=== PATIENT | male | born 1960 | race Caucasian/White ===

== ENCOUNTER → 2020-12-04 09:30 | Outpatient (BNVA) | payer SELFPAY | PROVIDERS: Visit Provider Family Medicine | DX: R63.4 Abnormal weight loss (principal); R10.9 Unspecified abdominal pain; R22.1 Localized swelling, mass and lump, neck; Z76.89 Persons encountering health services in other specified circumstances | CPT/HCPCS: 80053; 82378; 84153; 84443; 85025 ==

== ENCOUNTER 2021-03-25 20:11 | Emergency (ER) | payer SELFPAY ==
[2021-03-25 20:18] VITALS: BP 134/76; PULSE 78; RESP 16; TEMP 36.6; O2SAT 98; BMI 19.5
--- NOTE | 2021-03-25 20:25 | ED_ITS ---
HPI - General Adult General: Chief complaint: General Medical Stated complaint: Muscle Spasm Upper body Time Seen by Provider: 03/25/21 20:24 History of Present Illness: Patient has chronic tendinitis and cervical radiculopathy. Patient does not take any routine medications orally. Patient states that he had been first prescribed a lot of oral medications but it caused a lot of problems with his stomach and he is unable to take any oral medications at this time. Patient reports over the last week he has had worsening pain but is unable to get into his primary care provider until early next week. Patient is looking for some injections just to kind to get him through until next week. Patient appears well. Patient appears in mild to no pain. Patient reports pain in his upper extremities and muscle spasms in his legs, neck, and back. Review of Systems Musc: Reports: extremity pain and muscle cramps PFS ED PFSH: Social History (Updated 12/18/20 @ 10:13 by Almas Roman LPN) Smoking and tobacco status: current every day smoker cigarettes Alcohol intake: current Alcohol intake frequency: few times a month Alcohol type: beer Physical Exam Const: COMMON NORMALS: healthy appearing and alert GENERAL APPEARANCE: cooperative NUTRITIONAL APPEARANCE: thin HENMT: COMMON NORMALS: atraumatic HEAD & SCALP: atraumatic Neck/C-Spine: CERVICAL SPINE: Yes cervical ROM normal and Yes Paracervical muscle tenderness Resp: COMMON NORMALS: normal respiratory effort Cardio: COMMON NORMALS: regular rate and regular rhythm RATE: regular rate RHYTHM: regular rhythm GI: COMMON NORMALS: Soft to palpation and non-tender PALPATION: Yes Soft to palpation Extremity: COMMON NORMALS: normal to inspection and full ROM Neuro: COMMON NORMALS: moves all extremities and gait normal SENSORIUM/ORIENTATION: Yes alert Psych: COMMON NORMALS: cooperative Skin: COMMON NORMALS: no rashes or lesions noted GENERAL SKIN EXAM: no rashes or lesions noted Course Vital Signs: Vital signs: Vital Signs Temperature 97.8 F 03/25/21 20:18 Pulse Rate 78 03/25/21 20:18 Respiratory Rate 16 03/25/21 20:18 Blood Pressure 134/76 03/25/21 20:18 Pulse Oximetry 98 03/25/21 20:18 MDM - General Adult Medical Decision Making Patient comes in today with complaints of generalized muscle pain and muscle spasms. Patient reports a history of tendinitis, epicondylitis and carpal tunnel syndrome. Patient also reports some history of neck and back pain. On exam patient has some muscle tenderness in the trapezius muscles bilaterally of his neck. Patient has good range of motion and normal strength in all extremities. Patient does have some point tenderness to his back and extremities. Vital signs are normal. Differential diagnosis includes but not limited to fibromyalgia, cervical radiculopathy, neuropathy, tendinitis, malingering. We will give patient 30 mg of Toradol for pain, 2 mg Ativan for his muscle spasms, and 10 mg Decadron for inflammation. Patient was encouraged to drink plenty of fluids and follow-up with his primary care at the next available appointment. Patient agreed to plan. Differential Diagnosis Fibromyalgia, tendinitis, neuropathy, cervical radiculopathy, malingering Discharge Plan Discharge Patient Disposition: Home Clinical Impression: Muscle spasm Condition: Stable Prescriptions: No Action No Known Home Medications 0RF methylprednisolone acetate [Depo-Medrol] 80 mg/mL suspension 80 mg intra-articular ONCE Qty: 1 0RF lidocaine (PF) 20 mg/mL (2 %) solution 100 mg IM ONCE Qty: 5 0RF Discharge Orders: Discharge ED (Routine); Ordered 03/25/21 Ordered By: Gadiel Myles Activity Restrictions/Additional Instructions: Home and rest. Activity as tolerated. Continue with routine plans for control of muscle pain. Follow-up with primary care at earliest appointment. Coding Level of Care Code ED Master [place] for Ondina Fwd History Problem Focused Exam Problem Focused Medical Decision Making Low Complexity Time Spent (min) 20
[2021-03-25] MEDS: ketorolac 30 mg/mL INJ IM (20:49)
[2021-03-25] MEDS: LORazepam 2 mg/mL INJ 1 mL IM (20:50)
[2021-03-25] MEDS: dexamethasone 10 mg/mL INJ IM (20:58)
== END 2021-03-25 21:12 | disposition home or self-care (01) ==
PROVIDERS: Emergency Provider Nurse Practitioner Family
DX: M62.838 Other muscle spasm (principal); F17.210 Nicotine dependence, cigarettes, uncomplicated
CPT/HCPCS: 96372; 99283; J1100; J1885; J2060

== ENCOUNTER 2021-05-21 16:09 | Emergency (ER) | payer SELFPAY ==
[2021-05-21 16:30] VITALS: BP 159/81; PULSE 71; RESP 14; TEMP 36.8; O2SAT 97; BMI 18.8
--- NOTE | 2021-05-21 16:37 | XR_ITS ---
WS: [id number] Chest with left rib detail, 5 views, 05/21/2021 Clinical Data: fall, pain Comparison: None. Findings: The lungs show no nodules, masses, or effusions. The heart is normal. No pneumonia or pneumothorax is seen. The ribs are intact. No rib fractures seen. No subcutaneous emphysema is present. XR/XR ribs LT mn 3V w CXR1V [id number] Impression: Negative chest with left rib detail.
--- NOTE | 2021-05-21 16:40 | W.ED.EXTPRO ---
HPI - Extremity Problem General: Chief complaint: Extremity Injury, Upper Stated complaint: Fall, poss broken ribs Time Seen by Provider: 05/21/21 16:37 History of Present Illness: Patient said he fell off a ladder from about 3 feet about an hour ago and now has left rib pain. Said he has had broken ribs 4 and is sure that is what he has happened now. He has no shortness of breath. Has a hard time finding a position comfort. Associated symptoms: Deny chest pain, fever(s) or rash Review of Systems Narrative: Patient says he fell off a 2 foot step ladder striking a 2 x 4. This occurred about an hour ago. Const: Denies: fever(s), chills or body aches Eyes: Denies: eye discomfort ENMT: Denies: throat pain Card: Denies: chest pain Resp: Denies: dyspnea GI: Denies: abdominal pain, nausea or vomiting Musc: Reports: other (Rib pain left side middle the rib cage.) Skin/Breast: Denies: rash Neuro: Denies: headache(s) Psych: Denies: depression or suicidal ideation [facility] ED PFSH: Social History Smoking and tobacco status: never smoked Alcohol intake: current Alcohol intake frequency: few times a month Alcohol type: beer Physical Exam Const: COMMON NORMALS: no acute distress, patient oriented x3 and alert HENMT: COMMON NORMALS: normocephalic and external ears normal HEAD & SCALP: normocephalic EXTERNAL EAR: Yes external ears normal Eye: COMMON NORMALS: EOMs intact bilaterally Neck/C-Spine: COMMON NORMALS: no JVD Chest: OTHER: Tenderness to left side of the rib cage. About 4 to 5 inches underneath armpit area. There is no bruising or swelling noted there is no abrasion is breathing normally. Resp: COMMON NORMALS: normal respiratory effort and No use of accessory muscles Cardio: COMMON NORMALS: no JVD GI: INSPECTION: Yes normal to inspection Extremity: COMMON NORMALS: normal to inspection and full ROM Neuro: COMMON NORMALS: patient oriented x3 SENSORIUM/ORIENTATION: Yes alert Psych: COMMON NORMALS: mental status grossly normal Skin: COMMON NORMALS: no rashes or lesions noted GENERAL SKIN EXAM: no rashes or lesions noted Course Vital Signs: Vital signs: Vital Signs Temperature 98.3 F 05/21/21 16:30 Pulse Rate 71 05/21/21 16:30 Respiratory Rate 14 05/21/21 16:30 Blood Pressure 159/81 05/21/21 16:30 Pulse Oximetry 97 05/21/21 16:30 MDM - Extremity (Nontraumatic) Medical Decision Making Rib contusion Discharge Plan Discharge Patient Disposition: Home Clinical Impression: Contusion of rib on left side Condition: Stable Prescriptions: New Celebrex 100 mg capsule 100 mg PO BID Qty: 20 0RF No Action prednisone 20 mg tablet See Rx Instructions PO DAILY Qty: 20 0RF Rx Instructions: Take 3 tabs on Days 1-3, 2 tabs on days 4-6, 1 tab on days 7-9, 1/2 tab on days 10-12. methylprednisolone acetate [Depo-Medrol] 80 mg/mL suspension 80 mg intra-articular ONCE Qty: 1 0RF lidocaine (PF) 20 mg/mL (2 %) solution 100 mg IM ONCE Qty: 5 0RF Discharge Orders: Discharge ED (Routine); Ordered 05/21/21 Ordered By: Chepe Mallory Discharge Diet: Usual diet Discharge Activity: Resume usual activity Patient Instructions: Contusion in Adults (ED) Activity Restrictions/Additional Instructions: Follow-up with medical provider as directed. Take medications as prescribed. Return to the ER or your medical provider if condition worsens. Please read and understand discharge instructions. If any questions ask please. Coding Level of Care Code ED Manufacturing Operations Manager for Ondina Fwsebastian Exam Comprehensive
[2021-05-21] MEDS: CELEcoxib 200 mg Capsule 400 MG PO (17:05)
== END 2021-05-21 17:06 | disposition home or self-care (01) ==
PROVIDERS: Emergency Provider Nurse Practitioner Family
DX: S20.212A Contusion of left front wall of thorax, initial encounter (principal); W11.XXXA Fall on and from ladder, initial encounter
CPT/HCPCS: 71101; 99283

== ENCOUNTER 2021-07-25 01:09 | Emergency (ER) | payer SELFPAY ==
[2021-07-25] VITALS (8 sets, daily range): BP systolic 123–199; BP diastolic 74–115; PULSE 54–78; RESP 14–26; TEMP 36.5; O2SAT 92–98; BMI 18.8
--- NOTE | 2021-07-25 01:15 | XRR_ITS ---
PROCEDURE INFORMATION: Exam: XR Chest Exam date and time: 07/25/2021 1:18 AM Age: 60 years old Clinical indication: Chest pressure and radiating; Patient HX: C/O chest pain radiating into back. ; Additional info: Cp TECHNIQUE: Imaging protocol: XR of the chest. Views: 1 view. COMPARISON: CR XR ribs LT mn 3V w CXR1V [id number] 05/21/2021 4:48 PM FINDINGS: Lungs: There is a background of emphysema and mild pulmonary fibrosis. Pleural spaces: Unremarkable. No pleural effusion. No pneumothorax. Heart/Mediastinum: Unremarkable. No cardiomegaly. Bones/joints: Unremarkable. XR/XR chest 1V portable [id number] IMPRESSION: There are no acute chest findings.
--- NOTE | 2021-07-25 01:15 | ECG_ITS ---
[facility] Test Date: 2021-07-25 Pat Name: Kavitha Dunlap Department: Room: Gender: Male Garageman: : 1960 Requested By: Yen Castillo Order Number: [id number] Kirk MD: Batsheva Cohen M.D. Measurements Intervals [place] Rate: 74 P: 0 MN: 148 QRS: 42 QRSD: 89 T: 47 QT: 381 QTc: 423 Interpretive Statements SINUS RHYTHM LOW QRS VOLTAGE IN EXTREMITY LEADS [QRS DEFLECTION < 0.5 mV IN LIMB LEADS] No previous ECG available for comparison Electronically Signed On 07-25-2021 22:00:21 CDT by Batsheva Cohen M.D. [id number]
--- NOTE | 2021-07-25 01:29 | CTR_ITS ---
PROCEDURE INFORMATION: Exam: CTA Chest With Contrast Exam date and time: 07/25/2021 2:15 AM Age: 60 years old Clinical indication: Abdominal pain; Other: Bi lat flank; Chest pressure; Patient HX: Patient C/O chest pain with bilateral flank pain. Tachycardic and hypertensive on monitor. ; Additional info: Cp/ abd pain TECHNIQUE: Imaging protocol: Computed tomographic angiography of the chest with contrast. 3D rendering (Not supervised by radiologist): MIP and/or 3D reconstructed images were created by the technologist. Radiation optimization: All CT scans at this facility use at least one of these dose optimization techniques: automated exposure control; mA and/or kV adjustment per patient size (includes targeted exams where dose is matched to clinical indication); or iterative reconstruction. Contrast material: VISI 320; Contrast volume: 60 ml; Contrast route: INTRAVENOUS (IV); COMPARISON: CR (CHEST, ) 07/25/2021 1:18 AM RADIATION DOSE METRICS: Total DLP (mGy-cm): 1273.46 FINDINGS: Pulmonary arteries: Normal. No pulmonary emboli. Aorta: Unremarkable. No aortic aneurysm. No aortic dissection. Lungs: Unremarkable. No consolidation. No masses. Pleural spaces: Unremarkable. No pneumothorax. No pleural effusion. Heart: Calcifications are seen within the coronary arteries. Lymph nodes: Unremarkable. No enlarged lymph nodes. Bones/joints: Unremarkable. No acute fracture. Soft tissues: Unremarkable. PROCEDURE INFORMATION: Exam: CT Abdomen And Pelvis With Contrast Exam date and time: 07/25/2021 2:15 AM Age: 60 years old Clinical indication: Abdominal pain; Other: Bi lat flank; Chest pressure; Patient HX: Patient C/O chest pain with bilateral flank pain. Tachycardic and hypertensive on monitor. ; Additional info: Cp/ abd pain TECHNIQUE: Imaging protocol: Computed tomography of the abdomen and pelvis with contrast. Radiation optimization: All CT scans at this facility use at least one of these dose optimization techniques: automated exposure control; mA and/or kV adjustment per patient size (includes targeted exams where dose is matched to clinical indication); or iterative reconstruction. Contrast material: VISI 320; Contrast volume: 60 ml; Contrast route: INTRAVENOUS (IV); COMPARISON: CR (CHEST, ) 07/25/2021 1:18 AM RADIATION DOSE METRICS: Total DLP (mGy-cm): 1273.46 FINDINGS: Liver: Normal. No mass. Gallbladder and bile ducts: Normal. No calcified stones. No ductal dilation. Pancreas: Normal. No ductal dilation. Spleen: Normal. No splenomegaly. Adrenal glands: Normal. No mass. Kidneys and ureters: Normal. No hydronephrosis. Stomach and bowel: Moderate stool fills the colon. There is bowel wall thickening seen within the distal sigmoid colon possibly secondary to nondistention. Appendix: No evidence of appendicitis. Intraperitoneal space: Unremarkable. No free air. No significant fluid collection. Vasculature: Calcifications are present within the abdominal aorta, iliac arteries and femoral arteries bilaterally and in branches of the celiac and superior mesenteric arteries. Lymph nodes: Unremarkable. No enlarged lymph nodes. Urinary bladder: Unremarkable as visualized. Reproductive: There is a small right hydrocele. Bones/joints: Unremarkable. No acute fracture. Soft tissues: Unremarkable. CT/CT angio chest w abd pel w con IMPRESSION: 1. There is no evidence for pulmonary emboli. 2. There is no evidence for aneurysmal dilatation, dissection or extravasation of the thoracic aorta. IMPRESSION: 1. Moderate stool fills the colon. There is some bowel wall thickening seen within the distal sigmoid colon possibly secondary to nondistention. 2. Small right hydrocele
--- NOTE | 2021-07-25 01:33 | ED_ITS ---
HPI - Chest Pain General: Chief Complaint: Chest Pain Stated Complaint: cp, back pian Time Seen by Provider: 07/25/21 01:14 Source: patient and EMS Mode of arrival: EMS Limitations: no limitations History of Present Illness: 60-year-old male states that he woke up at midnight with severe abdominal pain rating up into his chest he states he felt like the pain is sharp in nature he just cannot get comfortable. He rates the pain a 9 out of 10 currently denies any shortness of breath no vomiting or baldemar rrhea no fevers. Denies any history of any pain like this previously. Associated symptoms: Reports abdominal pain; Deny dyspnea or fever(s) Review of Systems Const: Denies: fever(s), chills, body aches or change in appetite Eyes: Denies: blurry vision or eye discomfort ENMT: Denies: throat pain or dental pain Card: Reports: chest pain Resp: Denies: dyspnea GI: Reports: abdominal pain : Denies: dysuria Musc: Denies: neck pain or back pain Skin/Breast: Denies: rash Neuro: Denies: headache(s) Psych: Denies: depression Russ/Lymph: Denies: easy bruising All/Imm: Denies: urticaria PFSH ED PFSH: Medical History (Updated 07/25/21 @ 04:46 by Yen Castillo MD) No pertinent past medical history Social History Smoking and tobacco status: never smoked Alcohol intake: current Alcohol intake frequency: few times a month Alcohol type: beer Physical Exam Const: COMMON NORMALS: patient oriented x3 and healthy appearing HENMT: COMMON NORMALS: normocephalic and atraumatic HEAD & SCALP: normocephalic and atraumatic Eye: COMMON NORMALS: Equal, round and reactive pupils present and EOMs intact bilaterally PUPIL: Yes Equal, round and reactive pupils present Neck/C-Spine: COMMON NORMALS: full ROM and supple Chest: COMMONS NORMALS: normal inspection of the chest and normal palpation of entire chest wall Resp: COMMON NORMALS: normal respiratory effort, No retractions, No use of accessory muscles and clear to auscultation bilaterally AUSCULTATION: clear to auscultation bilaterally Cardio: COMMON NORMALS: regular rate, regular rhythm and No murmurs present (Cardio) RATE: regular rate RHYTHM: regular rhythm GI: COMMON NORMALS: Normal to inspection, nondistended, normoactive bowel sounds present, Soft to palpation, non-tender and no masses PALPATION: Yes Soft to palpation Extremity: COMMON NORMALS: normal to inspection and full ROM Neuro: COMMON NORMALS: patient oriented x3, moves all extremities and no focal motor deficits Psych: COMMON NORMALS: mental status grossly normal, Normal thought process present and cooperative THOUGHT PROCESS: Normal thought process present Skin: COMMON NORMALS: no rashes or lesions noted and no wounds GENERAL SKIN EXAM: no rashes or lesions noted Course Vital Signs: Vital signs: Vital Signs Temperature 97.7 F 07/25/21 01:18 Pulse Rate 77 07/25/21 03:30 Respiratory Rate 18 07/25/21 03:30 Blood Pressure 162/83 07/25/21 03:30 Pulse Oximetry 92 07/25/21 03:30 MDM - Chest Pain Medical Decision Making Patient presents with diffuse abdominal cramping likely from his constipation CT of his abdomen showed no other findings his white count and lactate here are normal. He had some radiation pain into his chest no signs of pulmonary embolism or dissection troponins are normal patient feels much improved after Reglan did give him lactulose will prescribe Reglan for home along with GoLytely he is to follow-up his PCP and return if worsening. Lab Data : 07/25/21 01:32 07/25/21 01:32 Radiology Impressions Chest X-Ray 07/25/21 01:15 IMPRESSION: There are no acute chest findings. Chest/Abdomen/Pelvis CT 07/25/21 01:29 IMPRESSION: 1. There is no evidence for pulmonary emboli. 2. There is no evidence for aneurysmal dilatation, dissection or extravasation of the thoracic aorta. IMPRESSION: 1. Moderate stool fills the colon. There is some bowel wall thickening seen within the distal sigmoid colon possibly secondary to nondistention. 2. Small right hydrocele Laboratory Results WBC 8.6 10^3/uL (4.0-10.0) 07/25/21 01:32 RBC 4.65 10^6/uL (4.1-5.3) 07/25/21 01:32 Hgb 14.0 g/dL (11.7-16.6) 07/25/21 01:32 Hct 41.5 % (42.0-52.0) L 07/25/21 01:32 MCV 89.2 fl (80-94) 07/25/21 01:32 MCH 30.1 pg (28.0-34.0) 07/25/21 01:32 MCHC 33.7 g/dL (30.0-36.0) 07/25/21 01:32 RDW 12.7 % (12.1-15.1) 07/25/21 01:32 Plt Count 367 10^3/cmm (130-400) 07/25/21 01:32 MPV 10.0 fL (7.4-10.4) 07/25/21 01:32 Neut % (Auto) 70.0 % 07/25/21 01:32 Lymph % (Auto) 18.0 % 07/25/21 01:32 [place] % (Auto) 7.7 % 07/25/21 01:32 Eos % (Auto) 3.1 % 07/25/21 01:32 Baso % (Auto) 0.9 % 07/25/21 01:32 Neut # (Auto) 6.01 10^3/uL (1.8-7.7) 07/25/21 01:32 Lymph # (Auto) 1.6 10^3/uL (0.8-4.8) 07/25/21 01:32 [place] # (Auto) 0.7 10^3/uL (0.2-0.9) 07/25/21 01:32 Eos # (Auto) 0.3 10^3/uL (0.0-0.8) 07/25/21 01:32 Baso # (Auto) 0.1 10^3/uL (0.0-0.1) 07/25/21 01:32 Nucleated RBC % (auto) 0 % 07/25/21 01:32 Nucleated RBCs # 0.0 /100WBC 07/25/21 01:32 PT 13.50 SECONDS (12.1-14.9) 07/25/21 01:32 INR 1.00 (0.8-1.2) 07/25/21 01:32 Sodium 137 mmol/L (136-145) 07/25/21 01:32 Potassium 3.9 mmol/L (3.5-5.1) 07/25/21 01:32 Chloride 99 mmol/L (98-107) 07/25/21 01:32 Carbon Dioxide 27 mmol/L (22-29) 07/25/21 01:32 Anion Gap 14.9 (5-19) 07/25/21 01:32 BUN 9 mg/dL (8-23) 07/25/21 01:32 Creatinine 0.7 mg/dL (0.7-1.2) 07/25/21 01:32 GFR Calculation 114.6 mL/min (90-130) 07/25/21 01:32 Glucose 139 mg/dL (65-115) H 07/25/21 01:32 Calculated Osmolality 285 mOsm/kg (285-295) 07/25/21 01:32 Lactate 0.7 mmol/L (0.5-2.2) 07/25/21 02:53 Calcium 9.1 mg/dL (8.5-10.5) 07/25/21 01:32 Total Bilirubin 0.2 mg/dL (0.15-1.2) 07/25/21 01:32 AST 16 U/L (0-40) 07/25/21 01:32 ALT 11 U/L (0-41) 07/25/21 01:32 Alkaline Phosphatase 95 IU/L (40-130) 07/25/21 01:32 Troponin T Baseline 7 ng/L (0-15) 07/25/21 01:32 Troponin T 120 Minute 6.85 ng/L (0-15) 07/25/21 03:57 Delta Troponin T -0.15 ABS# (0-10) L 07/25/21 03:57 Total Protein 6.9 g/dL (6.6-8.7) 07/25/21 01:32 Albumin 4.4 g/dL (3.5-5.2) 07/25/21 01:32 Globulin 2.5 g/dL (1.3-4.6) 07/25/21 01:32 Lipase 29 U/L (13-60) 07/25/21 01:32 Urine Color Yellow (Yellow) 07/25/21 04:21 Urine Appearance Clear (CLEAR) 07/25/21 04:21 Urine pH 7 (5-7) 07/25/21 04:21 Ur Specific [place] 1.005 (1.005-1.030) 07/25/21 04:21 Urine Protein Neg (Negative) 07/25/21 04:21 Urine Glucose (UA) Norm (Normal) 07/25/21 04:21 Urine Ketones Negative (Negative) 07/25/21 04:21 Urine Blood Neg (Negative) 07/25/21 04:21 Urine Nitrate Negative (Negative) 07/25/21 04:21 Urine Bilirubin Neg (Negative) 07/25/21 04:21 Urine Urobilinogen Norm mg/dL (Negative) 07/25/21 04:21 Ur Leukocyte Esterase Negative (Negative) 07/25/21 04:21 EKG Data EKG 1: I personally reviewed and interpreted this EKG as follows: EKG interpretation date: 07/25/21 EKG interpretation time: 01:30 Interpretation: nsr hr [address] or t wave abnormalities qrs 89 qtc 408 EKG 2: I personally reviewed and interpreted this EKG as follows: EKG interpretation date: 07/25/21 EKG interpretation time: 03:09 Interpretation: sinus [place] hr [address] or t wave abnormalities qrs 92 qtc 413 Discharge Plan Discharge Patient Disposition: Home Clinical Impression: Abdominal pain Qualifiers: Abdominal location: generalized Qualified Code(s): R10.84 - Generalized abdominal pain Constipation Qualifiers: Constipation type: unspecified constipation type Qualified Code(s): K59.00 - Constipation, unspecified Condition: Stable Prescriptions: New Reglan 10 mg tablet 10 mg PO Q6H PRN (Reason: nausea and vomiting) Qty: 20 0RF Golytely 236-22.74-6.74 -5.86 gram recon soln 240 ml PO Q10M Qty: 4000 0RF Rx Instructions: until fecal effluent is clear No Action prednisone 20 mg tablet See Rx Instructions PO DAILY Qty: 20 0RF Rx Instructions: Take 3 tabs on Days 1-3, 2 tabs on days 4-6, 1 tab on days 7-9, 1/2 tab on da ys 10-12. methylprednisolone acetate [Depo-Medrol] 80 mg/mL suspension 80 mg intra-articular ONCE Qty: 1 0RF lidocaine (PF) 20 mg/mL (2 %) solution 100 mg IM ONCE Qty: 5 0RF Celebrex 100 mg capsule 100 mg PO BID Qty: 20 0RF Discharge Orders: Discharge ED (Routine); Ordered 07/25/21 Ordered By: Yen Castillo Discharge Diet: Advance as tolerated Discharge Activity: Resume usual activity Patient Instructions: Constipation (ED), Abdominal Pain (ED) Coding Level of Care Code ED Java [employer] Technical Lead for Hildag Fwd Exam Comprehensive
[2021-07-25] MEDS: HYDROmorphone 1 mg/mL INJ 1 mL IVP ×2 (01:37→02:00)
[2021-07-25] MEDS: ondansetron 2 mg/ML SDV 2 mL 4 MG IVP (01:37)
[2021-07-25 01:38] LABS: Basophils # 0.1 10^3/uL (0.0-0.1); Basophils % 0.9 %; Eosinophils # 0.3 10^3/uL (0.0-0.8); Eosinophils % 3.1 %; Hematocrit 41.5 % (42.0-52.0); Lymphocytes # 1.6 10^3/uL (0.8-4.8); Mean Corpuscular HGB Conc 33.7 g/dL (30.0-36.0); Mean Corpuscular Hemoglobin 30.1 pg (28.0-34.0); Mean Corpuscular Volume 89.2 fl (80-94); Monocytes # 0.7 10^3/uL (0.2-0.9); Monocytes % 7.7 %; Neutrophils # 6.01 10^3/uL (1.8-7.7); Nucleated Red Blood Cells % 0 %; Platelet Count 367 10^3/cmm (130-400); Red Blood Count 4.65 10^6/uL (4.1-5.3); Red Cell Distribution Width 12.7 % (12.1-15.1); White Blood Count 8.6 10^3/uL (4.0-10.0)
[2021-07-25 02:10] LABS: Alanine Aminotransferase 11 U/L (0-41); Albumin Level 4.4 g/dL (3.5-5.2); Alkaline Phosphatase 95 IU/L (40-130); Anion Gap 14.9 (5-19); Aspartate Amino Transferase 16 U/L (0-40); Blood Urea Nitrogen 9 mg/dL (8-23); Calcium 9.1 mg/dL (8.5-10.5); Carbon Dioxide 27 mmol/L (22-29); Chloride 99 mmol/L (98-107); Globulin 2.5 g/dL (1.3-4.6); Glomerular Filtration Rate 114.6 mL/min (90-130); Glucose 139 mg/dL (65-115); Lipase 29 U/L (13-60); Osmolality Calculated 285 mOsm/kg (285-295); Potassium 3.9 mmol/L (3.5-5.1); Sodium 137 mmol/L (136-145); Total Bilirubin 0.2 mg/dL (0.15-1.2); Total Protein 6.9 g/dL (6.6-8.7)
[2021-07-25 02:11] LABS: Troponin(5th) Baseline 7 ng/L (0-15)
[2021-07-25] MEDS: iodixanol 320 mg/mL 100mL Btl IV (02:26)
[2021-07-25] MEDS: LORazepam 2 mg/mL INJ 1 mL 1 MG IVP (02:50)
[2021-07-25] MEDS: lactulose oral liq 20 gm/30 mL UDC 30 GM PO (03:00)
--- NOTE | 2021-07-25 03:15 | ECG_ITS ---
[facility] Test Date: 2021-07-25 Pat Name: Kavitha Dunlap Department: Room: Gender: Male Community Service Officer Coordinator: : 1960 Requested By: Yen Castillo Order Number: [id number] Kirk MD: Batsheva Cohen M.D. Measurements Intervals [place] Rate: 59 P: 42 NC: 162 QRS: 66 QRSD: 92 T: 53 QT: 414 QTc: 411 Interpretive Statements SINUS BRADYCARDIA LOW QRS VOLTAGE IN EXTREMITY LEADS [QRS DEFLECTION < 0.5 mV IN LIMB LEADS] Compared to ECG 07/25/2021 01:30:10 Sinus rhythm no longer present Electronically Signed On 07-25-2021 22:14:37 CDT by Batsheva Cohen M.D. [id number]
[2021-07-25 03:20] LABS: Lactate (Lactic Acid level) 0.7 mmol/L (0.5-2.2)
[2021-07-25] MEDS: metoclopramide 5 mg/mL SDV 2 mL IVP (04:21)
[2021-07-25] MEDS: diphenhydrAMINE 50 mg/mL SDV 1mL 25 MG IVP (04:21)
[2021-07-25] MEDS: polyethylene glycol 3350 Pkt 17 gm PO (04:21)
[2021-07-25 04:25] LABS: Add Urine Microscopic? NO; Bilirubin Urine Neg (Negative); Blood Urine Neg (Negative); Charge for UA Resulting for Rev; Glucose Urine UA Norm (Normal); Ketones Urine Negative (Negative); Leukocyte Esterase Urine Negative (Negative); Nitrate Urine Negative (Negative); Protein Urine Neg (Negative); Specific Gravity, Urine 1.005 (1.005-1.030); Urine Appearance Clear (CLEAR); Urine Color Yellow (Yellow); Urobilinogen Urine Norm (Negative); pH Urine 7 (5-7)
[2021-07-25 04:37] LABS: Troponin 5 2HR 6.85 ng/L (0-15)
[2021-07-25 04:44] LABS: Troponin 5 2HR Delta -0.15 ABS# (0-10)
== END 2021-07-25 04:55 | disposition home or self-care (01) ==
PROVIDERS: Emergency Provider Emergency Medicine
DX: K59.00 Constipation, unspecified (principal)
CPT/HCPCS: 71045; 71275; 74177; 80053; 81003; 83605; 83690; 84484; 85025; 85610; 93005; 96374; 96375; 96376; 99285; J1170; J1200; J2060; J2405; J2765; Q9967

== ENCOUNTER → 2021-07-31 13:46 | Outpatient (BNVA) | payer SELFPAY | PROVIDERS: Referring Provider Family Medicine; Visit Provider Orthopaedic Surgery | DX: M54.6 Pain in thoracic spine (principal) | CPT/HCPCS: 72072; 72100 ==

== ENCOUNTER 2022-08-14 16:36 | Emergency (ER) | payer SELFPAY ==
[2022-08-14 16:38] VITALS: BP 199/106; PULSE 81; RESP 16; TEMP 36.8; O2SAT 97
[2022-08-14] MEDS: lidocaine 2% viscous 15 mL UDC 10 ML MUCOUS MEM (17:42)
[2022-08-14] MEDS: HYDROcodone-acetaminophen 5-325 mg Tablet 1 TAB PO (17:42)
--- NOTE | 2022-08-15 00:51 | W.ED.DENTAL ---
HPI - Dental/Oral General: Chief complaint: Dental/Oral Stated complaint: loose molar hitting nerve Time Seen by Provider: 08/14/22 17:16 Source: patient Mode of arrival: ambulatory Limitations: no limitations History of Present Illness: Patient presents emergency department today for evaluation treatment of right lower dental pain. Patient states that earlier this morning he broke one of his molars and since that time has had terrible nerve pain. Patient is pacing in the room [id number] holding his jaw. He is even crying out at some times. Patient states he waited until now to come in as they were trying to find an available dentist today but were unsuccessful. He states the tooth is loose and he has been trying to wiggle it and pull it out since this morning. Review of Systems General: Reports: 10 or more systems reviewed and unremarkable except in HPI and below PFSH ED PFSH: Medical History No pertinent past medical history Social History Smoking and tobacco status: never smoked Alcohol intake: current Alcohol intake frequency: few times a month Alcohol type: beer Substance/Drug Use: current Substance/Drug use frequency: daily Physical Exam Const: COMMON NORMALS: no acute distress, patient oriented x3 and alert HENMT: OTHER: Mucous membranes are moist. Patient has an obviously broken right inferior, posterior molar. Posterior portion of the tooth is broken off at the gumline and there is no significant signs of surrounding erythema or swelling concerning for an active abscess but, would suspect exposure of root and nerve root on exam. Eye: COMMON NORMALS: Equal, round and reactive pupils present, EOMs intact bilaterally and conjunctivae normal CONJUNCTIVA: Yes conjunctivae normal PUPIL: Yes Equal, round and reactive pupils present Neck/C-Spine: COMMON NORMALS: no JVD Lymph: LYMPHATIC: no lymphadenopathy noted Resp: COMMON NORMALS: normal respiratory effort, No retractions and No use of accessory muscles Cardio: COMMON NORMALS: no JVD and regular rate RATE: regular rate : COMMON NORMALS: Yes no CVA tenderness BLADDER/KIDNEY EXAM: Yes no CVA tenderness Back/Pelvis: COMMON NORMALS: no CVA tenderness, thoracic and lumbar spine normal to inspection and thoraco-lumbar ROM normal Extremity: COMMON NORMALS: normal to inspection, full ROM and no pedal edema Neuro: COMMON NORMALS: patient oriented x3 SENSORIUM/ORIENTATION: Yes alert Skin: COMMON NORMALS: no rashes or lesions noted and turgor normal GENERAL SKIN EXAM: no rashes or lesions noted and turgor normal Course Vital Signs: Vital signs: Vital Signs Temperature 98.3 F 08/14/22 16:38 Pulse Rate 81 08/14/22 16:38 Respiratory Rate 16 08/14/22 16:38 Blood Pressure 199/106 08/14/22 16:38 Pulse Oximetry 97 08/14/22 16:38 Oxygen Delivery Me thod Room Air 08/14/22 16:38 MDM - Dental/Oral Medical Decision Making Patient presents today for tooth fracture. Patient appears to be in quite a lot of pain so we did address this today but, also recommended prescription medication at the pharmacy and [id number] options. I encouraged using dental putty to cover over the exposed nerve area. I also provided him a couple different same-day/walk-in dental emergency options for treatment in [place] as I explained that only a dental evaluation and intervention will provide him tentative dental pain relief. Patient was given a prescription for antibiotics to prevent any complications or delay about being seen by a dentist over concerns for infection. Differential Diagnosis Likely gingival abscess, dental caries, toothache, dental abscess and fracture of tooth Discharge Plan Discharge Patient Disposition: Home Clinical Impression: Fracture of tooth Condition: Stable Prescriptions: New Lidocaine Viscous 2 % solution 10 ml mucous membrane TID PRN (Reason: pain) Qty: 100 0RF amoxicillin-pot clavulanate 875-125 mg tablet 1 tab PO BID 7 Days Qty: 14 0RF gabapentin 300 mg capsule See Rx Instructions .ROUTE .COMPLEX Qty: 18 0RF Rx Instructions: take one cap today. Take one cap, twice a day tomorrow. Then take one cap three times a day until gone. No Action prednisone 20 mg tablet See Rx Instructions PO DAILY Qty: 20 0RF Rx Instructions: Take 3 tabs on Days 1-3, 2 tabs on days 4-6, 1 tab on days 7-9, 1/2 tab on days 10-12. methylprednisolone acetate [Depo-Medrol] 80 mg/mL suspension 80 mg intra-articular ONCE Qty: 1 0RF lidocaine (PF) 20 mg/mL (2 %) solution 100 mg IM ONCE Qty: 5 0RF prednisone 20 mg tablet 20 mg PO DAILY Qty: 15 0RF Rx Instructions: 60mg X3 days 40mg X2 days 20mg X 2days cyclobenzaprine 10 mg tablet 10 mg PO TID PRN (Reason: muscle spasm) Qty: 30 0RF Celebrex 100 mg capsule 100 mg PO BID Qty: 20 0RF Reglan 10 mg tablet 10 mg PO Q6H PRN (Reason: nausea and vomiting) Qty: 20 0RF Golytely [id number] -5.86 gram recon soln 240 ml PO Q10M Qty: 4000 0RF Rx Instructions: until fecal effluent is clear Discharge Orders: Discharge ED (Routine); Ordered 08/14/22 Ordered By: Beverly Celaya Discharge Diet: Advance as tolerated Discharge Activity: Resume usual activity Activity Restrictions/Additional Instructions: We have provided you some pain medicine here in the emergency department as well as prescriptions for both prophylactic antibiotic coverage to prevent dental infection and, nerve medication/numbing medication. I still recommend you apply dental putty to cover the area exposed from this recent tooth fracture. You still need to follow-up with a dentist for more definitive care and have provided you a couple of different options for walk-in services in [place]. Coding Level of Care Code ED Paper Spooler for Ondina Lau
--- NOTE | 2022-09-03 14:45 | DCPLANNER ---
late entry - patient called due to no primary care physician - no answer at this time.
== END 2022-08-14 17:48 | disposition home or self-care (01) ==
PROVIDERS: Emergency Provider Physician Assistant
DX: S02.5XXA Fracture of tooth (traumatic), initial encounter for closed fracture (principal); X58.XXXA Exposure to other specified factors, initial encounter
CPT/HCPCS: 99283

== ENCOUNTER 2022-12-04 18:33 | Emergency (ER) | payer SELFPAY ==
[2022-12-04 18:42] VITALS: BP 143/80; PULSE 94; RESP 16; TEMP 36.5; O2SAT 99; BMI 18.8
== END 2022-12-04 20:50 | disposition left against medical advice (07) ==
LOC: ER 18:42
PROVIDERS: Emergency Provider Family Medicine; PCP Clinical Nurse Specialist Adult Health
DX: Z53.21 Procedure and treatment not carried out due to patient leaving prior to being seen by health care provider (principal)
CPT/HCPCS: 99283

== ENCOUNTER 2022-12-04 22:17 | Emergency (ER) | payer SELFPAY ==
[2022-12-04 22:19] VITALS: BP 139/78; PULSE 79; RESP 16; TEMP 36.4; O2SAT 98; BMI 19.3
--- NOTE | 2022-12-04 22:41 | W.ED.BACK ---
HPI - Back Pain/Injury General: Chief Complaint: Back Pain/Injury Stated Complaint: back pain Time Seen by Provider: 12/04/22 22:37 History of Present Illness: 62-year-old male patient comes in today with complaints of low back pain. Patient has a history of intervertebral disc disease affecting L3-L4, and L4-L5 discs. Patient reports that he has tried ice, muscle rub, and naproxen at home with minimal to no relief of his pain. Patient came in tonight due to uncontrolled pain. Patient appears nontoxic. Patient appears in moderate pain. Denies any loss of bowel or bladder control. Patient at this time is awaiting referral to pain specialist and neurology for treatment of his chronic back pain. Review of Systems General: Reports: 10 or more systems reviewed and unremarkable except in HPI and below Musc: Reports: back pain PFS ED PFSH: Medical History (Updated 12/04/22 @ 22:52 by ITZ Arias) Bilateral sciatica Lumbar stenosis with neurogenic claudication Tobacco dependence Surgical History Hx of knee surgery Hx of shoulder surgery Family History Denies family history of Clotting disorder Anesthesia complication Bleeding disorder Social History Smoking and tobacco status: current every day smoker cigarettes Packs smoked per day: 1 [ Other cigarette details: 40 year pack history] Alcohol intake: former Substance/Drug Use: former Date of last use: not currently, many moons before Physical Exam Const: COMMON NORMALS: alert HENMT: COMMON NORMALS: normocephalic HEAD & SCALP: normocephalic Neck/C-Spine: COMMON NORMALS: full ROM Resp: COMMON NORMALS: normal respiratory effort Cardio: COMMON NORMALS: regular rate and regular rhythm RATE: regular rate RHYTHM: regular rhythm GI: COMMON NORMALS: Soft to palpation and non-tender PALPATION: Yes Soft to palpation Back/Pelvis: LUMBAR SPINE/LOWER BACK: Yes paraspinal muscle tenderness Extremity: COMMON NORMALS: normal to inspection and no pedal edema Neuro: SENSORIUM/ORIENTATION: Yes alert Skin: COMMON NORMALS: turgor normal GENERAL SKIN EXAM: turgor normal Course Vital Signs: Vital signs: Vital Signs Temperature 97.5 F L 12/04/22 22:19 Pulse Rate 79 12/04/22 22:19 Respiratory Rate 16 12/04/22 22:19 Blood Pressure 139/78 12/04/22 22:19 Pulse Oximetry 98 12/04/22 22:19 MDM - Back Pain/Injury Medical Decision Making 62-year-old male patient comes in today for complaints of uncontrolled back pain. On exam patient appears nontoxic. Patient appears in no acute distress. Reviewed MRI report that shows a herniated disc in his lower back between L4 and L5 and some bulging disc between L3 and L4. Vital signs are normal. Patient appears nontoxic. Respirations are even lungs are clear to auscultation. No signs of cauda equina syndrome. Differential diagnosis includes intervertebral disc disease, facet arthropathy, chronic back pain, cauda equina syndrome. Reviewed exam with patient with recommendations for treatment and follow-up. Patient reported understanding and agreed to plan. 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 Condition: Stable Prescriptions: New hydrocodone-acetaminophen 5-325 mg tablet 1 tab PO Q8H PRN (Reason: pain) Qty: 7 0RF No Action naproxen sodium [Aleve] 220 mg capsule 220 mg PO BID PRN baclofen 10 mg tablet 10 mg PO BID PRN (Reason: muscle spasms) Qty: 60 0RF hydrocortisone 2.5 % cream with perineal applicator 1 applic MT DAILY PRN (Reason: hemorrhoids) Qty: 30 0RF Discharge Orders: Discharge ED (Routine); Ordered 12/04/22 Ordered By: Gadiel Myles Referrals: Irwin Franklin, SALES REPRESENTATIVE TRAINEE [Primary Care Provider] - Discharge Diet: Usual diet Discharge Activity: Increase activity as tolerated Patient Instructions: Opioid Safety, Pain Management Activity Restrictions/Additional Instructions: Try to maintain normal activity. Drink plenty of water with medications. Gentle stretching and range of motion exercises. Follow-up with primary care for further instructions. Return to ED for new concerns. Coding Level of Care Code ED Child Support Specialist for Ondina Lau
[2022-12-04] MEDS: HYDROcodone-acetaminophen 7.5-325 mg Tablet 1 TAB PO (22:58)
[2022-12-04] MEDS: ketorolac 30 mg/mL INJ IM (22:59)
[2022-12-04 23:30] VITALS: BP 166/64; PULSE 71; RESP 18; O2SAT 99
== END 2022-12-04 23:18 | disposition home or self-care (01) ==
PROVIDERS: Emergency Provider Nurse Practitioner Family; PCP Clinical Nurse Specialist Adult Health
DX: M51.36 Other intervertebral disc degeneration, lumbar region (principal); M25.78 Osteophyte, vertebrae; F17.210 Nicotine dependence, cigarettes, uncomplicated
CPT/HCPCS: 96372; 99284; J1885

== ENCOUNTER 2022-12-29 11:41 | Emergency (ER) | payer SELFPAY ==
[2022-12-29 11:43] VITALS: BP 152/84; PULSE 80; RESP 18; TEMP 36.7; O2SAT 98; BMI 17.9
[2022-12-29 12:49] VITALS: BP 174/95; PULSE 91; RESP 18; O2SAT 99
--- NOTE | 2022-12-29 13:18 | ED_ITS ---
HPI - Back Pain/Injury General: Chief Complaint: Back Pain/Injury Stated Complaint: back pain Time Seen by Provider: 12/29/22 11:57 Source: patient and family Mode of arrival: ambulatory Limitations: no limitations History of Present Illness: Patient is a 62-year-old male who presents to ED today with complaint of chronic back pain. Patient states he was seen primary care as well as pain management in [place] for his back pain but recently moved to the area. Patient was seen by Dr. Feldman on 12/22 for his back pain. Patient states he has been taking multiple medications including muscle relaxers, pain medications, and anti- inflammatories for his pain. Patient states I am not a good medication taker and feels like all of the medications have messed with my stomach . He states it is hard to eat or drink anything secondary to abdominal/stomach discomforts. He is not having any bloody emesis or black or tarry stools. Patient states from the ER today he would just like IM medications to give him some temporary relief as he has follow-up with PCP Dr. Sotomayor tomorrow. He is declining any type of blood work evaluation or imaging for his abdominal pain. He underwent MRI imaging of the lumbar back apparently 3 weeks ago. Results are as follows: Multiple disc bulges in the lumbar spine at L2-L3 and L4 with facet arthropathy that is mild to moderate at multiple levels.? Patient is noted to have moderate left greater than right left-sided L3 and moderate left greater than right L4-5 foraminal stenosis due to combination of facet arthropathy and disc disease. Dr. Cantu's plan at this time is to have patient undergo lumbar trigger point injections. MD elicited complaint: back pain Pertinent past history: prior back pain Onset (ago): month(s) Timing: constant Severity: severe Pain scale (0-10): 11 Similar Symptoms Previously: Yes Location: lumbar spine Radiation: left upper leg and right upper leg Exacerbating factors: movement, walking and lifting Relieving factors: none Associated symptoms: Reports no associated symptoms, abdominal pain, nausea and vomiting; Deny chills, change in bowel habits, fatigue or fever(s) Treatments prior to arrival: NSAIDS, acetaminophen, other medications, prescription analgesics and other medications Work related injury: No Review of Systems Const: Denies: fever(s), chills, body aches, fatigue or malaise Card: Denies: chest pain Resp: Denies: dyspnea GI: Reports: abdominal pain, nausea and vomiting; Denies: hematemesis, diarrhea, change in bowel habits, hematochezia or melena Musc: Reports: back pain; Denies: neck pain, extremity pain, extremity swelling, joint pain or joint swelling Skin/Breast: Denies: rash Neuro: Denies: headache(s), numbness in extremities, weakness in extremities or sensory changes PFSH ED PFSH: Medical History Bilateral sciatica Lumbar stenosis with neurogenic claudication Tobacco dependence Surgical History Hx of knee surgery Hx of shoulder surgery Family History Denies family history of Clotting disorder Anesthesia complication Bleeding disorder Social History Smoking and tobacco/nicotine status: current every day tobacco/nicotine user cigarettes Packs smoked per day: 1 [ Other cigarette details: 40 year pack history] Alcohol intake: former Substance/Drug Use: former Date of last use: not currently, many moons before Physical Exam Const: COMMON NORMALS: no acute distress, average body habitus, patient oriented x3, no limitations, healthy appearing, alert and well nourished Back/Pelvis: THORACIC SPINE/UPPER BACK: Yes normal to inspection, No thoracic spinal tenderness, No paraspinal muscle tenderness and No paraspinal muscle s pasm LUMBAR SPINE/LOWER BACK: Yes pain with ROM, Yes lumbar spinal tenderness and Yes straight leg raise negative bilaterally PELVIS: Yes buttocks normal and No sciatic notch tenderness SACROILIAC JOINTS: Yes SI joints normal SACRUM: no tenderness COCCYX: no tenderness Extremity: COMMON NORMALS: normal to inspection, full ROM, capillary refill normal, no joint enlargement, no clubbing, cyanosis or edema, no calf tenderness and no pedal edema GENERAL: Yes normal exam except as noted Neuro: COMMON NORMALS: patient oriented x3, moves all extremities, no focal motor deficits, no sensory deficits noted and gait normal SENSORIUM/ORIENTATION: Yes alert MOTOR EXAM: 5/5 motor strength present throughout Course Vital Signs: Vital signs: Vital Signs Temperature 98.0 F 12/29/22 11:43 Pulse Rate 91 12/29/22 12:49 Respiratory Rate 18 12/29/22 13:35 Blood Pressure 174/95 12/29/22 12:49 Pulse Oximetry 99 12/29/22 12:49 Oxygen Delivery Me thod Room Air 12/29/22 12:49 MDM - Back Pain/Injury Medical Decision Making Patient declining any evaluation/blood work today stating he has follow-up with primary care tomorrow and is anticipating routine labs being drawn then. He is requesting IM medications to give him some temporary relief. These were provided. Upon re-examination he is currently rating his pain at a 3/10 and is ready to go. He has no red flag signs or symptoms on his history or physical ex am. No radiology studies performed this visit Discharge Plan Discharge Patient Disposition: Home Clinical Impression: Low back pain Qualifiers: Chronicity: chronic Back pain laterality: midline Sciatica presence: without sciatica Qualified Code(s): M54.50 - Low back pain, unspecified Condition: Stable Prescriptions: No Action naproxen sodium [Aleve] 220 mg capsule 220 mg PO BID PRN baclofen 10 mg tablet 10 mg PO BID PRN (Reason: muscle spasms) Qty: 60 0RF topiramate 50 mg tablet 50 mg PO BID 30 Days Qty: 60 0RF hydrocortisone 2.5 % cream with perineal applicator 1 applic [place] DAILY PRN (Reason: hemorrhoids) Qty: 30 0RF hydrocodone-acetaminophen 5-325 mg tablet 1 tab PO Q8H PRN (Reason: pain) Qty: 7 0RF Discharge Orders: Discharge ED (Routine); Ordered 12/29/22 Ordered By: Hamida Matos Referrals: Irwin Franklin RECYCLING COORDINATOR [Primary Care Provider] - Activity Restrictions/Additional Instructions: Follow up with primary care tomorrow as scheduled. Coding Level of Care Code ED Boarding Machine Operator for Ondina Lau
[2022-12-29 13:35] VITALS: RESP 18
[2022-12-29] MEDS: orphenadrine 30 mg/mL Inj 2 mL 60 MG IM (13:35)
[2022-12-29] MEDS: ketorolac 60 mg/2 mL INJ IM (13:35)
[2022-12-29] MEDS: dexamethasone 10 mg/mL INJ 8 MG IM (13:35)
[2022-12-29] MEDS: morphine 4 mg/mL SDV 1 mL IM (13:35)
[2022-12-29 14:30] VITALS: BP 124/86; PULSE 72; RESP 18; TEMP 36.6; O2SAT 100
== END 2022-12-29 14:31 | disposition home or self-care (01) ==
PROVIDERS: Emergency Provider Physician Assistant; PCP Clinical Nurse Specialist Adult Health
DX: G89.29 Other chronic pain (principal); M54.50 Low back pain, unspecified; F17.210 Nicotine dependence, cigarettes, uncomplicated
CPT/HCPCS: 96372; 99284; J1100; J1885; J2270; J2360

== ENCOUNTER 2022-12-30 23:10 | Emergency (ER) | payer MEDICAID, SELFPAY ==
[2022-12-30 23:24] VITALS: PULSE 94; RESP 17; TEMP 36.3; O2SAT 97; BMI 17.2
[2022-12-31 00:04] LABS: Basophils % 0.2 %; Eosinophils % 0.2 %; Lymphocytes # 1.6 10^3/uL (0.8-4.8); Lymphocytes % 12.9 %; Mean Corpuscular Hemoglobin 22.6 pg (27-33); Mean Corpuscular Volume 75.4 fl (82-101); Mean Platelet Volume 9.1 fL (7.4-10.4); Neutrophils % 78.5 %; Nucleated Red Blood Cells % 0 %; Platelet Count 541 10^3/cmm (157-399); Red Blood Count 3.45 10^6/uL (3.85-5.65); Red Cell Distribution Width 16.1 % (12.1-15.1); White Blood Count 12.25 10^3/uL (3.29-11.43)
[2022-12-31 00:25] LABS: Alanine Aminotransferase 14 U/L (0-41); Albumin Level 3.8 g/dL (3.5-5.2); Alkaline Phosphatase 353 U/L (40-130); Aspartate Amino Transferase 26 U/L (0-40); Blood Urea Nitrogen 19 mg/dL (8-23); Calcium 9.2 mg/dL (8.5-10.5); Carbon Dioxide 26 mmol/L (22-29); Chloride 96 mmol/L (98-107); Globulin 2.8 g/dL (1.3-4.6); Glomerular Filtration Rate 85.2 mL/min (90-130); Glucose 121 mg/dL (65-115); Lipase 26 U/L (13-60); Osmolality Calculated 280 mOsm/kg (285-295); Sodium 133 mmol/L (136-145); Total Bilirubin 0.2 mg/dL (0.15-1.2); Total Protein 6.6 g/dL (6.6-8.7)
--- NOTE | 2022-12-31 00:41 | CTR_ITS ---
PROCEDURE INFORMATION: Exam: CT Abdomen And Pelvis With Contrast Exam date and time: 12/31/2022 1:48 AM Age: 62 years old Clinical indication: Other: Back; Patient HX: Patient has acid reflux and lumbar pain. He says he has 4 bulging disc from falling off a ladder 1 year ago. PT is a smoker. No HX of cancer; Additional info: Abd pain TECHNIQUE: Imaging protocol: Computed tomography of the abdomen and pelvis with contrast. Radiation optimization: All CT scans at this facility use at least one of these dose optimization techniques: automated exposure control; mA and/or kV adjustment per patient size (includes targeted exams where dose is matched to clinical indication); or iterative reconstruction. Contrast material: OMNI 350; Contrast volume: 80 ml; Contrast route: INTRAVENOUS (IV); REPORTING DATA: Count of CT and Cardiac NM exams in prior 12 months: This patient has received 0 known CTs and 0 known cardiac nuclear medicine studies in the 12 months prior to the current study. COMPARISON: CT angio chest w abd pel w con 07/25/2021 2:15 AM RADIATION DOSE METRICS: Total DLP (mGy-cm): 374.47 FINDINGS: Coronary arteries: Coronary arterial atherosclerotic calcifications are present. Liver: Multiple hypodense rounded lesions throughout the right and left lobes of the liver measuring up to 7.4 x 6.8 cm. Findings are consistent with metastatic disease. Gallbladder and bile ducts: Normal. No calcified stones. No ductal dilation. Pancreas: Normal. No ductal dilation. Spleen: Normal. No splenomegaly. Adrenal glands: Normal. No mass. Kidneys and ureters: Normal. No hydronephrosis. Stomach and bowel: Large eccentric mass in the sigmoid colon measuring at least 7.5 x 5.5 cm consistent with neoplasm. Appendix: No evidence of appendicitis. Intraperitoneal space: Unremarkable. No free air. No significant fluid collection. Vasculature: Unremarkable. No abdominal aortic aneurysm. Lymph nodes: Multiple adjacent lobulated lymph nodes in the posterior pelvis consistent with metastatic disease. Urinary bladder: Unremarkable as visualized. Reproductive: Unremarkable as visualized. Bones/joints: Dense sclerotic lesion in the posterior left iliac bone measuring up to 12 x 8 mm which is thought likely to represent a bone island. Soft tissues: Unremarkable. CT/CT abdomen pelvis w con* [id number] IMPRESSION: 1. Multiple hypodense rounded lesions throughout the right and left lobes of the liver measuring up to 7.4 x 6.8 cm consistent with metastatic disease. 2. Large eccentric mass in the sigmoid colon measuring at least 7.5 x 5.5 cm consistent with neoplasm. 3. Multiple adjacent lobulated lymph nodes in the posterior pelvis consistent with metastatic disease.
--- NOTE | 2022-12-31 00:41 | XRR_ITS ---
PROCEDURE INFORMATION: Exam: XR Chest Exam date and time: 12/31/2022 1:25 AM Age: 62 years old Clinical indication: Other: Back pain; Patient HX: PT says he has acid reflux and 4 bulging disk in back and has been in pain for days; Additional info: Abd pain TECHNIQUE: Imaging protocol: Radiologic exam of the chest. Views: 1 view. COMPARISON: CR XR chest 1V portable [id number] 07/25/2021 1:18 AM FINDINGS: Lungs: Unremarkable. No consolidation. Pleural spaces: Unremarkable. No pleural effusion. No pneumothorax. Heart/Mediastinum: Unremarkable. No cardiomegaly. Bones/joints: Unremarkable. XR/XR chest 1V portable [id number] IMPRESSION: No acute findings.
--- NOTE | 2022-12-31 00:47 | ED_ITS ---
HPI - Nausea/Vomiting/Diarrhea General: Chief complaint: Nausea/Vomiting/Diarrhea Stated complaint: back pain/N Time Seen by Provider: 12/31/22 00:38 Source: patient Mode of arrival: ambulatory Limitations: no limitations History of Present Illness: 62-year-old male with a history of chronic back pain states has been trying to get into pain management has not states that over the last 2 days has been having severe abdominal pain with vomiting states he has not been able to tolerate any p.o. He denies any diarrhea denies any fevers. Denies any blood in his stool states he has not had many bowel movements due to not eating. Associated nausea: Yes Associated symtoms: Reports nausea; Denies chest pain or headache(s) Review of Systems Const: Denies: fever(s), chills, body aches or change in appetite Eyes: Denies: blurry vision or eye discomfort ENMT: Denies: throat pain or dental pain Card: Denies: chest pain Resp: Denies: dyspnea GI: Reports: abdominal pain, nausea and vomiting; Denies: diarrhea Musc: Denies: neck pain or back pain Skin/Breast: Denies: rash Neuro: Denies: headache(s) PFSH ED PFSH: Medical History Bilateral sciatica Constipation Internal hemorrhage Lumbar stenosis with neurogenic claudication Severe tobacco use disorder Tobacco dependence Surgical History Hx of knee surgery Hx of shoulder surgery Family History (Updated 12/30/22 @ 14:14 by Liz Palacios LPN) Father Cancer lung Mother Cancer colon Denies family history of Liver disease Diabetes CAD (coronary artery disease) Aneurysm Clotting disorder Dementia Depression Hyperlipidemia Hyperthyroidism Hypothyroidism Psychiatric illness Chronic kidney disease (CKD) Anesthesia complication Bleeding disorder Lung disease Hypertension Stroke Social History Smoking and tobacco/nicotine status: current every day tobacco/nicotine user cigarettes Packs smoked per day: 1 [ Other cigarette details: 40 year pack history] Alcohol intake: former Substance/Drug Use: former Date of last use: not currently, many moons before Lives independently: Yes Marital status: Number of children: 2 Current occupational status: disabled Special lcaie needs: No Agree to transfusion: Yes Physical Exam Const: COMMON NORMALS: patient oriented x3 GENERAL APPEARANCE: ill appearing and frail appearing HENMT: COMMON NORMALS: normocephalic and atraumatic HEAD & SCALP: normocephalic and atraumatic Eye: COMMON NORMALS: Equal, round and reactive pupils present and EOMs intact bilaterally PUPIL: Yes Equal, round and reactive pupils present Neck/C-Spine: COMMON NORMALS: full ROM and supple Chest: COMMONS NORMALS: normal inspection of the chest and normal palpation of entire chest wall Resp: COMMON NORMALS: normal respiratory effort, No retractions, No use of accessory muscles and clear to auscultation bilaterally AUSCULTATION: clear to auscultation bilaterally Cardio: COMMON NORMALS: regular rate, regular rhythm and No murmurs present (Cardio) RATE: regular rate RHYTHM: regular rhythm GI: COMMON NORMALS: Normal to inspection, nondistended, normoactive bowel sounds present, Soft to palpation and no masses PALPATION: Yes Soft to palpation OTHER: diffuse tenderness Extremity: COMMON NORMALS: normal to inspection and full ROM Neuro: COMMON NORMALS: patient oriented x3, moves all extremities and no focal motor deficits Psych: COMMON NORMALS: mental status grossly normal, Normal thought process present and cooperative THOUGHT PROCESS: Normal thought process present Skin: COMMON NORMALS: no rashes or lesions noted and no wounds GENERAL SKIN EXAM: no rashes or lesions noted Course Vital Signs: Vital signs: Vital Signs Temperature 97.4 F L 12/30/22 23:24 Pulse Rate 72 12/31/22 02:30 Respiratory Rate 17 12/31/22 01:39 Blood Pressure 146/82 12/31/22 02:30 Pulse Oximetry 97 12/31/22 01:39 Oxygen Delivery Me thod Room Air 12/30/22 23:24 MDM - Nausea/Vomiting/Diarrhea Medical Decision Making Patient presents here with abdominal pain his CT shows a colon mass is likely a primary tumor with liver metastases. Wwill get patient follow-up with oncology he is to follow-up with his PCP as well we will place him on pain meds nausea medicine he is return if worsening. Medical Records I reviewed the patient's medical records. Lab Data I reviewed the patient's lab results. 12/30/22 23:58 12/30/22 23:58 Radiology Impressions Abdomen/Pelvis CT 12/31/22 00:41 IMPRESSION: 1. Multiple hypodense rounded lesions throughout the right and left lobes of the liver measuring up to 7.4 x 6.8 cm consistent with metastatic disease. 2. Large eccentric mass in the sigmoid colon measuring at least 7.5 x 5.5 cm consistent with neoplasm. 3. Multiple adjacent lobulated lymph nodes in the posterior pelvis consistent with metastatic disease. ADDENDUM: 12/31/22 0237 THIS REPORT CONTAINS FINDINGS THAT MAY BE CRITICAL TO PATIENT CARE. The findings were verbally communicated via telephone conference with MARTHA Ortiz at 2:36 AM CDT on 12/31/2022. The findings were acknowledged and understood. Chest X-Ray 12/31/22 00:41 IMPRESSION: No acute findings. Laboratory Results WBC 12.25 10^3/uL (3.29-11.43) H 12/30/22 23:58 RBC 3.45 10^6/uL (3.85-5.65) L 12/30/22 23:58 Hgb 7.80 g/dL (11.27-16.99) L 12/30/22 23:58 Hct 26.0 % (37-53) L 12/30/22 23:58 MCV 75.4 fl (82-101) L 12/30/22 23:58 MCH 22.6 pg (27-33) L 12/30/22 23:58 MCHC 30.0 g/dL (30-55) 12/30/22 23:58 RDW 16.1 % (12.1-15.1) H 12/30/22 23:58 Plt Count 541 10^3/cmm (157-399) H 12/30/22 23:58 MPV 9.1 fL (7.4-10.4) 12/30/22 23:58 Neut % (Auto) 78.5 % 12/30/22 23:58 Lymph % (Auto) 12.9 % 12/30/22 23:58 [place] % (Auto) 8.0 % 12/30/22 23:58 Eos % (Auto) 0.2 % 12/30/22 23:58 Baso % (Auto) 0.2 % 12/30/22 23:58 Neut # (Auto) 9.60 10^3/uL (1.8-7.7) H 12/30/22 23:58 Lymph # (Auto) 1.6 10^3/uL (0.8-4.8) 12/30/22 23:58 [place] # (Auto) 1.0 10^3/uL (0.2-0.9) H 12/30/22 23:58 Eos # (Auto) 0.0 10^3/uL (0.0-0.8) 12/30/22 23:58 Baso # (Auto) 0.0 10^3/uL (0.0-0.1) 12/30/22 23:58 Nucleated RBC % (auto) 0 % 12/30/22 23:58 Nucleated RBCs # 0.0 /100WBC 12/30/22 23:58 Sodium 133 mmol/L (136-145) L 12/30/22 23:58 Potassium 4.0 mmol/L (3.5-5.1) 12/30/22 23:58 Chloride 96 mmol/L (98-107) L 12/30/22 23:58 Carbon Dioxide 26 mmol/L (22-29) 12/30/22 23:58 Anion Gap 15.0 (5-19) 12/30/22 23:58 BUN 19 mg/dL (8-23) 12/30/22 23:58 Creatinine 0.9 mg/dL (0.7-1.2) 12/30/22 23:58 GFR Calculation 85.2 mL/min (90-130) L 12/30/22 23:58 Glucose 121 mg/dL (65-115) H 12/30/22 23:58 Calculated Osmolality 280 mOsm/kg (285-295) L 12/30/22 23:58 Calcium 9.2 mg/dL (8.5-10.5) 12/30/22 23:58 Total Bilirubin 0.2 mg/dL (0.15-1.2) 12/30/22 23:58 AST 26 U/L (0-40) 12/30/22 23:58 ALT 14 U/L (0-41) 12/30/22 23:58 Alkaline Phosphatase 353 U/L (40-130) H 12/30/22 23:58 Total Protein 6.6 g/dL (6.6-8.7) 12/30/22 23:58 Albumin 3.8 g/dL (3.5-5.2) 12/30/22 23:58 Globulin 2.8 g/dL (1.3-4.6) 12/30/22 23:58 Lipase 26 U/L (13-60) 12/30/22 23:58 Urine Color Yellow (Yellow) 12/31/22 02:04 Urine Appearance Clear (CLEAR) 12/31/22 02:04 Urine pH 7 (5-7) 12/31/22 02:04 Ur Specific [place] 1.010 (1.005-1.030) 12/31/22 02:04 Urine Protein Neg (Negative) 12/31/22 02:04 Urine Glucose (UA) Norm (Normal) 12/31/22 02:04 Urine Ketones Negative (Negative) 12/31/22 02:04 Urine Blood Neg (Negative) 12/31/22 02:04 Urine Nitrate Negative (Negative) 12/31/22 02:04 Urine Bilirubin Neg (Negative) 12/31/22 02:04 Urine Urobilinogen Neg mg/dL (Negative) 12/31/22 02:04 Ur Leukocyte Esterase Negative (Negative) 12/31/22 02:04 All radiology interpretation(s) finalized by discharge Other Data I personally reviewed and interpreted the following: Discharge Plan Discharge Patient Disposition: Home Clinical Impression: Mass of colon, Metastases to the liver Condition: Stable Prescriptions: New Percocet 10-325 mg tablet 1 tab PO Q8H PRN (Reason: pain) Qty: 20 0RF ondansetron 4 mg tablet,disintegrating 4 mg PO Q6H PRN (Reason: nausea and vomiting) Qty: 14 0RF No Action sucralfate [Carafate] 1 gram tablet 1 g PO BID Qty: 84 0RF Rx Instructions: for acid reflux pantoprazole [Protonix] 40 mg tablet,delayed release (DR/EC) 40 mg PO BID Qty: 84 0RF Rx Instructions: acid reflux Discharge Orders: Discharge ED (Routine); Ordered 12/31/22 Ordered By: Martha Castillo Referrals: Crescencio Sotomayor MD [Primary Care Provider] - 1-3 days Discharge Diet: Advance as tolerated Discharge Activity: Resume usual activity Patient Instructions: Colorectal Cancer (DC), Opioid Safety Coding Level of Care Code ED Strap Folding Machine Operator for Chg Sid
[2022-12-31] MEDS: ondansetron 2 mg/ML SDV 2 mL 4 MG IVP (01:21)
[2022-12-31 01:22] VITALS: RESP 20
[2022-12-31] MEDS: HYDROmorphone 1 mg/mL INJ 1 mL IVP ×2 (01:22→02:48)
[2022-12-31] MEDS: sodium chloride 0.9% 1,000 ML 999 ML IV (01:24)
[2022-12-31 01:39] VITALS: BP 167/75; PULSE 68; RESP 17; O2SAT 97
[2022-12-31] MEDS: iohexol 350 mg/mL 500 mL Btl (per mL) IV (01:54)
[2022-12-31 02:09] LABS: Add Urine Microscopic? NO; Charge for UA Resulting for Rev
[2022-12-31 02:20] LABS: Bilirubin Urine Neg (Negative); Blood Urine Neg (Negative); Glucose Urine UA Norm (Normal); Ketones Urine Negative (Negative); Leukocyte Esterase Urine Negative (Negative); Nitrate Urine Negative (Negative); Protein Urine Neg (Negative); Urine Appearance Clear (CLEAR); Urine Color Yellow (Yellow); Urobilinogen Urine Neg (Negative); pH Urine 7 (5-7)
[2022-12-31 02:30] VITALS: BP 146/82; PULSE 72
--- NOTE | 2022-12-31 07:47 | DCPLANNER ---
Referral was sent to oncology on 12/31/22 at 0747 am. Clinic to contact patient.
== END 2022-12-31 03:00 | disposition home or self-care (01) ==
PROVIDERS: Emergency Provider Emergency Medicine; PCP Family Medicine
DX: K63.9 Disease of intestine, unspecified (principal); C78.7 Secondary malignant neoplasm of liver and intrahepatic bile duct; F17.210 Nicotine dependence, cigarettes, uncomplicated
CPT/HCPCS: 36415; 71045; 74177; 80053; 80061; 81003; 83690; 84439; 84443; 85025; 96374; 96375; 96376; 99285; J1170; J2405; J7030; Q9967

== ENCOUNTER 2023-01-10 14:48 | Emergency (ER) | payer MEDICAID, SELFPAY ==
[2023-01-10 14:49] VITALS: BP 184/67; PULSE 94; RESP 17; TEMP 37.2; O2SAT 93; BMI 17.2
--- NOTE | 2023-01-10 15:17 | XRR_ITS ---
PROCEDURE INFORMATION: Exam: XR Abdomen Exam date and time: 01/10/2023 3:31 PM Age: 62 years old Clinical indication: Bloating and constipation; Abdominal pain; Localized; Left; Patient HX: Constipation; Bilateral flank pain; Dysuria; Recent diagnosis of metastatic colon/liver CA TECHNIQUE: Imaging protocol: Radiologic exam of the abdomen. Views: Frontal supine view of the abdomen. 1 View. COMPARISON: CT abdomen pelvis w con* [id number] 12/31/2022 1:48 AM FINDINGS: Gastrointestinal tract: [id number] retained feces in the descending colon and splenic flexure. Vasculature: One or more calcified pelvic phleboliths. Bones/joints: Mild levoscoliosis. Mild to moderate multilevel spine degenerative changes including degenerative disc disease, spondylosis and facet degenerative changes. XR/XR KUB portable [id number] IMPRESSION: [id number] retained feces in the descending colon and splenic flexure.
[2023-01-10 15:38] LABS: Basophils # 0.1 10^3/uL (0.0-0.1); Basophils % 0.6 %; Eosinophils # 0.1 10^3/uL (0.0-0.8); Eosinophils % 1.2 %; Hematocrit 27.4 % (37-53); Lymphocytes # 0.9 10^3/uL (0.8-4.8); Mean Corpuscular HGB Conc 30.3 g/dL (30-55); Mean Corpuscular Hemoglobin 23.4 pg (27-33); Mean Corpuscular Volume 77.4 fl (82-101); Mean Platelet Volume 9.3 fL (7.4-10.4); Monocytes # 0.7 10^3/uL (0.2-0.9); Monocytes % 7.5 %; Neutrophils # 7.69 10^3/uL (1.8-7.7); Neutrophils % 81.3 %; Nucleated Red Blood Cells % 0 %; Platelet Count 460 10^3/cmm (157-399); Red Blood Count 3.54 10^6/uL (3.85-5.65); White Blood Count 9.46 10^3/uL (3.29-11.43)
[2023-01-10] MEDS: sodium chloride 0.9% 1,000 ML 999 ML IV (15:43)
[2023-01-10 15:44] VITALS: RESP 17; O2SAT 98
[2023-01-10] MEDS: HYDROmorphone 1 mg/mL INJ 1 mL IVP (15:44)
[2023-01-10 15:54] LABS: Alanine Aminotransferase 19 U/L (0-41); Albumin Level 3.3 g/dL (3.5-5.2); Alkaline Phosphatase 305 U/L (40-130); Anion Gap 13.9 (5-19); Aspartate Amino Transferase 34 U/L (0-40); Blood Urea Nitrogen 9 mg/dL (8-23); Calcium 8.8 mg/dL (8.5-10.5); Carbon Dioxide 29 mmol/L (22-29); Chloride 93 mmol/L (98-107); Globulin 2.9 g/dL (1.3-4.6); Glomerular Filtration Rate 136.1 mL/min (90-130); Glucose 116 mg/dL (65-115); Osmolality Calculated 274 mOsm/kg (285-295); Potassium 3.9 mmol/L (3.5-5.1); Sodium 132 mmol/L (136-145); Total Bilirubin 0.4 mg/dL (0.15-1.2); Total Protein 6.2 g/dL (6.6-8.7)
[2023-01-10 16:05] LABS: Creatinine Clr Calc Pharmacy 97.0182
--- NOTE | 2023-01-10 16:10 | W.ED.GENADLT ---
HPI - General Adult General: Chief complaint: General Medical Stated complaint: back, kidney, rectum pain;has cancer diagnosis Time Seen by Provider: 01/10/23 15:01 History of Present Illness: 62-year-old male presents emergency room for complaints of rectal pain and diffuse body aches within the past few days. Patient further reveals that he was not evaluated 2 weeks ago and diagnosed with was started on morphine for pain and MiraLAX for constipation. Patient describes the pain as sharp sensation with severity of 7 out of 10 especially with bowel movement. Has any bloody stool or dark stool. Patient is scheduled to see his primary doctor tomorrow for pain management. Patient scheduled for biopsy of his rectal mass on Wednesday. Patient denies any nausea, vomiting, bloody stool or dark stool. No known sick contact or recent foreign travel. Associated symptoms: Reports dyspnea; Deny chest pain, nausea, palpitations or vomiting Review of Systems General: Reports: 10 or more systems reviewed and unremarkable except in HPI and below Const: Reports: body aches Card: Denies: chest pain, palpitations, edema or swelling of feet/ankles Resp: Reports: dyspnea; Denies: productive cough, wheezing, pain on inspiration, change in phlegm color, hemoptysis or chest congestion GI: Reports: pain on defecation and other (Chest pain due to rectal mass); Denies: nausea, vomiting, hematochezia, melena or white/light colored stool Musc: Reports: back pain; Denies: extremity pain, joint pain, joint redness, joint warmth, joint stiffness, limited range of motion or muscle cramps PFS ED PFSH: Medical History (Updated 01/10/23 @ 16:50 by Riky Jane MD) Bilateral sciatica Constipation Internal hemorrhage Lumbar stenosis with neurogenic claudication Mass of colon Severe tobacco use disorder Tobacco dependence Surgical History Hx of knee surgery Hx of shoulder surgery Family History Father Cancer lung Mother Cancer colon Denies family history of Liver disease Diabetes CAD (coronary artery disease) Aneurysm Clotting disorder Dementia Depression Hyperlipidemia Hyperthyroidism Hypothyroidism Psychiatric illness Chronic kidney disease (CKD) Anesthesia complication Bleeding disorder Lung disease Hypertension Stroke Social History (Reviewed 01/01/23 @ 09:05 by PRASHANTH Diana Smoking and tobacco/nicotine status: current every day tobacco/nicotine user cigarettes Packs smoked per day: 1 [ Other cigarette details: 40 year pack history] Alcohol intake: former Substance/Drug Use: former Date of last use: not currently, many moons before Lives independently: Yes Marital status: Number of children: 2 Current occupational status: disabled Special lacie needs: No Agree to transfusion: Yes Physical Exam Const: COMMON NORMALS: no acute distress, average body habitus, patient oriented x3, no limitations, healthy appearing, alert and well nourished HENMT: COMMON NORMALS: normocephalic, atraumatic, hearing grossly normal bilaterally, external ears normal, EAC's normal, TM's normal bilaterally, Normal external nose present, Normal nasal mucous membranes and turbinates present, moist oral mucous membranes, oropharynx normal, dentition normal and gingiva normal HEAD & SCALP: normocephalic and atraumatic NOSE: Normal external nose present and Normal nasal mucous membranes and turbinates present EXTERNAL EAR: Yes external ears normal EXTERNAL AUDITORY CANAL: EAC's normal TYMPANIC MEMBRANE: TM's normal bilaterally Neck/C-Spine: COMMON NORMALS: no JVD Chest: COMMONS NORMALS: normal inspection of the chest, normal palpation of entire chest wall, normal inspection of the breasts and normal palpation of the breasts Breast/axilla inspection: Yes normal inspection of the breasts BREAST/AXILLA PALPATION: Yes normal palpation of the breasts Resp: COMMON NORMALS: normal respiratory effort, No retractions, No use of accessory muscles, clear to auscultation bilaterally and percussion normal AUSCULTATION: clear to auscultation bilaterally PERCUSSION: percussion normal Cardio: COMMON NORMALS: no JVD, regular rate, regular rhythm, S1 normal heart sound present, S2 normal heart sound present, No gallops present (Cardio), No clicks present (Cardio), No murmurs present (Cardio), No rub (Cardio) and Peripheral pulses 2+ throughout RATE: regular rate RHYTHM: regular rhythm HEART SOUNDS: S1 normal heart sound present and S2 normal heart sound present PERIPHERAL PULSES: Peripheral pulses 2+ throughout GI: COMMON NORMALS: Normal to inspection, nondistended, normoactive bowel sounds present, Soft to palpation, non-tender, No hepatosplenomegaly present, no masses and no bruits PALPATION: Yes Soft to palpation and Yes No hepatosplenomegaly present Back/Pelvis: OTHER: Diffuse lower back pain upon palpation. No visible rash or lesion Neuro: COMMON NORMALS: patient oriented x3 SENSORIUM/ORIENTATION: Yes alert Course Vital Signs: Vital signs: Vital Signs Temperature 98.9 F 01/10/23 14:49 Pulse Rate 94 01/10/23 14:49 Respiratory Rate 17 01/10/23 15:44 Blood Pressure 184/67 01/10/23 14:49 Pulse Oximetry 98 01/10/23 15:44 Oxygen Delivery Me thod Room Air 01/10/23 14:49 MDM - General Adult Medical Decision Making Patient made comfortable emergency room. Patient had extensive work-up including CBC, CMP and a KUB. Patient was given IV Dilaudid x2. Patient was given Valium for sleep. Patient was told to follow-up with her PCP and pain management clinic tomorrow as scheduled. I discussed the labs and x-ray finding with the patient. Lab Data 01/10/23 15:25 01/10/23 15:25 Radiology Impressions KUB X-Ray 01/10/23 15:17 IMPRESSION: [id number]-[id number] retained feces in the descending colon and splenic flexure. Laboratory Results WBC 9.46 10^3/uL (3.29-11.43) 01/10/23 15:25 RBC 3.54 10^6/uL (3.85-5.65) L 01/10/23 15:25 Hgb 8.30 g/dL (11.27-16.99) L 01/10/23 15:25 Hct 27.4 % (37-53) L 01/10/23 15:25 MCV 77.4 fl (82-101) L 01/10/23 15:25 MCH 23.4 pg (27-33) L 01/10/23 15:25 MCHC 30.3 g/dL (30-55) 01/10/23 15:25 RDW 19.0 % (12.1-15.1) H 01/10/23 15:25 Plt Count 460 10^3/cmm (157-399) H 01/10/23 15:25 MPV 9.3 fL (7.4-10.4) 01/10/23 15:25 Neut % (Auto) 81.3 % 01/10/23 15:25 Lymph % (Auto) 9.0 % 01/10/23 15:25 [place] % (Auto) 7.5 % 01/10/23 15:25 Eos % (Auto) 1.2 % 01/10/23 15:25 Baso % (Auto) 0.6 % 01/10/23 15:25 Neut # (Auto) 7.69 10^3/uL (1.8-7.7) 01/10/23 15:25 Lymph # (Auto) 0.9 10^3/uL (0.8-4.8) 01/10/23 15:25 [place] # (Auto) 0.7 10^3/uL (0.2-0.9) 01/10/23 15:25 Eos # (Auto) 0.1 10^3/uL (0.0-0.8) 01/10/23 15:25 Baso # (Auto) 0.1 10^3/uL (0.0-0.1) 01/10/23 15:25 Nucleated RBC % (auto) 0 % 01/10/23 15:25 Nucleated RBCs # 0.0 /100WBC 01/10/23 15:25 Sodium 132 mmol/L (136-145) L 01/10/23 15:25 Potassium 3.9 mmol/L (3.5-5.1) 01/10/23 15:25 Chloride 93 mmol/L (98-107) L 01/10/23 15:25 Carbon Dioxide 29 mmol/L (22-29) 01/10/23 15:25 Anion Gap 13.9 (5-19) 01/10/23 15:25 BUN 9 mg/dL (8-23) 01/10/23 15:25 Creatinine 0.6 mg/dL (0.7-1.2) L 01/10/23 15:25 GFR Calculation 136.1 mL/min (90-130) H 01/10/23 15:25 Glucose 116 mg/dL (65-115) H 01/10/23 15:25 Calculated Osmolality 274 mOsm/kg (285-295) L 01/10/23 15:25 Calcium 8.8 mg/dL (8.5-10.5) 01/10/23 15:25 Total Bilirubin 0.4 mg/dL (0.15-1.2) 01/10/23 15:25 AST 34 U/L (0-40) 01/10/23 15:25 ALT 19 U/L (0-41) 01/10/23 15:25 Alkaline Phosphatase 305 U/L (40-130) H 01/10/23 15:25 Total Protein 6.2 g/dL (6.6-8.7) L 01/10/23 15:25 Albumin 3.3 g/dL (3.5-5.2) L 01/10/23 15:25 Globulin 2.9 g/dL (1.3-4.6) 01/10/23 15:25 XR interpretation done by ED provider, pending radiology final review Discharge Plan Discharge Patient Disposition: Home Clinical Impression: Mass in rectum, Chronic pain Condition: Stable Prescriptions: No Action sucralfate [Carafate] 1 gram tablet 1 g PO BID Qty: 84 0RF Rx Instructions: for acid reflux pantoprazole [Protonix] 40 mg tablet,delayed release (DR/EC) 40 mg PO BID Qty: 84 0RF Rx Instructions: acid reflux morphine concentrate 100 mg/5 mL (20 mg/mL) solution 10 mg PO Q6H PRN (Reason: pain) 14 Days Qty: 30 0RF ondansetron 4 mg tablet,disintegrating 4 mg PO Q6H PRN (Reason: nausea and vomiting) Qty: 14 0RF Discharge Orders: Discharge ED (Routine); Ordered 01/10/23 Ordered By: Riky Jane Referrals: Crescencio Sotomayor MD [Primary Care Provider] - Discharge Diet: Advance as tolerated Discharge Activity: Resume usual activity Patient Instructions: Opioid Safety, Pain Management Coding Level of Care Code ED Outsole Paraffiner for Ondina Lau
== END 2023-01-10 17:27 | disposition home or self-care (01) ==
PROVIDERS: Emergency Provider Family Medicine; PCP Family Medicine
DX: K62.9 Disease of anus and rectum, unspecified (principal); G89.29 Other chronic pain; F17.210 Nicotine dependence, cigarettes, uncomplicated
CPT/HCPCS: 36415; 74018; 80053; 85025; 96374; 99284; J1170; J7030

== ENCOUNTER 2023-01-13 11:41 | Outpatient (CLI) | payer MEDICAID, SELFPAY ==
[2023-01-13] VITALS (8 sets, daily range): BP systolic 161–188; BP diastolic 84–112; PULSE 70–86; RESP 16–18; TEMP 36.2–37.3; O2SAT 94–98; BMI 19.3
[2023-01-13] MEDS: sodium chloride 0.9% 1,000 ML 30 ML IV (12:49)
--- NOTE | 2023-01-13 13:00 | US_ITS ---
WS: [id number] ULTRASOUND GUIDED BIOPSY LIVER HISTORY: Sigmoid mass with mets to liver Procedure, risks, and complications are explained to the patient. Consent was obtained. Skin is clean sed with ChloraPrep and anesthetized with 1% buffered lidocaine. Imaging studies were reviewed. Prior CT 12/31/2022 reviewed. There are multiple hyperechoic masses throughout the liver. Mass in the superficial RIGHT lobe of the liver will be targeted. Under sterile conditions into a small dermatome multiple core biopsies are o btained with an 18-gauge achieve needle. Several biopsies were performed at various locations within one of the liver masses. Patient tolerated this procedure very well. No complications. IMPRESSION: Uncomplicated ultrasound-guided core needle biopsy metastatic masses in the liver.
[2023-01-13 13:08] LABS: Platelet Count 473 10^3/cmm (157-399)
[2023-01-13 13:25] LABS: INR 1.05 (0.8-1.2)
[2023-01-13] MEDS: fentaNYL 50 mcg/mL INJ 2mL 25 MCG IVP ×2 (14:18→14:30)
== END 2023-01-13 15:38 | disposition home or self-care (01) ==
PROVIDERS: Radiology Diagnostic Radiology; PCP Family Medicine; Visit Provider Family Medicine
DX: C78.7 Secondary malignant neoplasm of liver and intrahepatic bile duct (principal); K63.89 Other specified diseases of intestine
CPT/HCPCS: 36415; 47000; 76942; 85049; 85610; 88307; 96374; 99152; J3010; J7030

== ENCOUNTER 2023-01-28 12:00 | Oncology outpatient (recurring) (ONCR) | payer MEDICAID, SELFPAY ==
[2023-01-04] VITALS (7 sets, daily range): BP systolic 141–163; BP diastolic 76–95; PULSE 75–89; RESP 16; TEMP 36.4–37.3; O2SAT 96–98
[2023-01-04 07:57] LABS: Basophils % 0.3 %; Eosinophils # 0.1 10^3/uL (0.0-0.8); Eosinophils % 1.3 %; Hematocrit 25.7 % (37-53); Lymphocytes # 0.9 10^3/uL (0.8-4.8); Lymphocytes % 9.3 %; Mean Corpuscular HGB Conc 29.2 g/dL (30-55); Mean Corpuscular Volume 75.4 fl (82-101); Mean Platelet Volume 9.3 fL (7.4-10.4); Monocytes # 0.8 10^3/uL (0.2-0.9); Monocytes % 8.9 %; Neutrophils # 7.32 10^3/uL (1.8-7.7); Neutrophils % 79.9 %; Nucleated Red Blood Cells % 0 %; Platelet Count 567 10^3/cmm (157-399); Red Blood Count 3.41 10^6/uL (3.85-5.65); Red Cell Distribution Width 16.2 % (12.1-15.1); White Blood Count 9.17 10^3/uL (3.29-11.43)
[2023-01-04] MEDS: sodium chloride 0.9% 250 ML 75 ML IV (10:11)
[2023-01-04] MEDS: iron sucrose 200 MG in sodium chloride 0.9% (100 ml) 100 ML 220 MG IV (10:11)
[2023-01-07] MEDS: iron sucrose 200 MG in sodium chloride 0.9% (100 ml) 100 ML 220 MG IV (08:52)
[2023-01-07 09:27] VITALS: BP 142/86; PULSE 84; RESP 18; TEMP 36.6; O2SAT 95
[2023-01-11] MEDS: iron sucrose 200 MG in sodium chloride 0.9% (100 ml) 100 ML 220 MG IV (08:49)
[2023-01-11 09:20] VITALS: BP 144/82; PULSE 75; RESP 16; TEMP 36.6; O2SAT 99
[2023-01-18 08:03] VITALS: BP 143/73; PULSE 81; RESP 18; TEMP 37.1; O2SAT 98
[2023-01-18] MEDS: iron sucrose 200 MG in sodium chloride 0.9% (100 ml) 100 ML 220 MG IV (08:59)
[2023-01-18 09:30] VITALS: BP 164/79; PULSE 76; RESP 17; TEMP 36.6; O2SAT 99
[2023-01-20] MEDS: iron sucrose 200 MG in sodium chloride 0.9% (100 ml) 100 ML 220 MG IV (08:39)
[2023-01-20 09:20] VITALS: BP 124/78; PULSE 71; RESP 18; TEMP 36.6; O2SAT 98
== END 2023-01-28 23:59 | disposition home or self-care (01) ==
PROVIDERS: PCP Family Medicine; Visit Provider Family Medicine
DX: D50.9 Iron deficiency anemia, unspecified (principal); C18.7 Malignant neoplasm of sigmoid colon; D64.9 Anemia, unspecified; D75.839 Thrombocytosis, unspecified; M54.50 Low back pain, unspecified; Z79.899 Other long term (current) drug therapy; Z71.6 Tobacco abuse counseling
CPT/HCPCS: 36430; 85025; 86850; 86900; 86920; 96365; J1756; J7050; P9016

== ENCOUNTER 2023-01-29 10:45 | Oncology outpatient (recurring) (ONCR) | payer MEDICAID, SELFPAY ==
[2023-01-29 11:10] VITALS: BP 157/74; PULSE 76; RESP 16; TEMP 36.6; O2SAT 97
[2023-01-29 11:40] LABS: Basophils # 0.1 10^3/uL (0.0-0.1); Eosinophils # 0.2 10^3/uL (0.0-0.8); Eosinophils % 2.4 %; Hematocrit 34.9 % (37-53); Lymphocytes # 0.9 10^3/uL (0.8-4.8); Lymphocytes % 9.6 %; Mean Corpuscular HGB Conc 30.4 g/dL (30-55); Mean Corpuscular Hemoglobin 24.9 pg (27-33); Mean Corpuscular Volume 81.9 fl (82-101); Mean Platelet Volume 9.8 fL (7.4-10.4); Monocytes # 0.8 10^3/uL (0.2-0.9); Monocytes % 8.5 %; Neutrophils # 6.88 10^3/uL (1.8-7.7); Neutrophils % 77.9 %; Nucleated Red Blood Cells % 0 %; Platelet Count 507 10^3/cmm (157-399); Red Blood Count 4.26 10^6/uL (3.85-5.65); Red Cell Distribution Width 23.7 % (12.1-15.1); White Blood Count 8.83 10^3/uL (3.29-11.43)
[2023-01-29 11:50] LABS: Carcinoembryonic Antigen 417.2 ng/mL (0.0-4.7)
[2023-01-29 12:43] LABS: Alanine Aminotransferase 20 U/L (0-41); Albumin Level 3.6 g/dL (3.5-5.2); Alkaline Phosphatase 426 U/L (40-130); Anion Gap 14.1 (5-19); Aspartate Amino Transferase 43 U/L (0-40); Blood Urea Nitrogen 8 mg/dL (8-23); Calcium 9.3 mg/dL (8.5-10.5); Carbon Dioxide 29 mmol/L (22-29); Chloride 97 mmol/L (98-107); Glomerular Filtration Rate 136.1 mL/min (90-130); Glucose 97 mg/dL (65-115); Osmolality Calculated 280 mOsm/kg (285-295); Potassium 4.1 mmol/L (3.5-5.1); Sodium 136 mmol/L (136-145); Total Bilirubin 0.5 mg/dL (0.15-1.2); Total Protein 6.6 g/dL (6.6-8.7)
== END 2023-02-28 23:59 | disposition home or self-care (01) ==
PROVIDERS: Internal Medicine Hematology & Oncology; PCP Family Medicine; Visit Provider Family Medicine
DX: C18.7 Malignant neoplasm of sigmoid colon
CPT/HCPCS: 36415; 80053; 82378; 85025

== ENCOUNTER 2023-01-30 14:01 | Emergency (ER) | payer MEDICAID, SELFPAY ==
[2023-01-30 14:40] VITALS: BP 173/93; PULSE 87; RESP 18; TEMP 36.8; O2SAT 95; BMI 17.9
[2023-01-30 15:04] VITALS: BP 171/79; PULSE 81; TEMP 36.8; O2SAT 94
[2023-01-30 15:23] LABS: Basophils # 0.1 10^3/uL (0.0-0.1); Basophils % 0.7 %; Eosinophils % 0.5 %; Hematocrit 33.3 % (37-53); Lymphocytes # 0.8 10^3/uL (0.8-4.8); Lymphocytes % 8.9 %; Mean Corpuscular HGB Conc 30.6 g/dL (30-55); Mean Corpuscular Volume 81.6 fl (82-101); Mean Platelet Volume 9.8 fL (7.4-10.4); Monocytes # 0.7 10^3/uL (0.2-0.9); Monocytes % 7.8 %; Neutrophils # 7.03 10^3/uL (1.8-7.7); Neutrophils % 81.9 %; Nucleated Red Blood Cells % 0 %; Platelet Count 438 10^3/cmm (157-399); Red Blood Count 4.08 10^6/uL (3.85-5.65); Red Cell Distribution Width 23.2 % (12.1-15.1); White Blood Count 8.58 10^3/uL (3.29-11.43)
[2023-01-30 15:44] LABS: Alanine Aminotransferase 20 U/L (0-41); Albumin Level 3.5 g/dL (3.5-5.2); Alkaline Phosphatase 388 U/L (40-130); Anion Gap 16.9 (5-19); Aspartate Amino Transferase 41 U/L (0-40); Blood Urea Nitrogen 7 mg/dL (8-23); Calcium 9.2 mg/dL (8.5-10.5); Carbon Dioxide 26 mmol/L (22-29); Chloride 97 mmol/L (98-107); Globulin 3.1 g/dL (1.3-4.6); Glomerular Filtration Rate 136.1 mL/min (90-130); Glucose 119 mg/dL (65-115); Osmolality Calculated 281 mOsm/kg (285-295); Potassium 3.9 mmol/L (3.5-5.1); Sodium 136 mmol/L (136-145); Total Bilirubin 0.5 mg/dL (0.15-1.2); Total Protein 6.6 g/dL (6.6-8.7)
[2023-01-30 16:16] VITALS: BP 182/113; PULSE 97; RESP 18; O2SAT 100
--- NOTE | 2023-01-30 16:31 | ED_ITS ---
HPI - Male Genitourinary 2 General: Chief complaint: Urogenital-Male Stated complaint: abd pain,having issues going to the bathroom Time Seen by Provider: 01/30/23 16:13 Source: patient and family Mode of arrival: ambulatory Limitations: no limitations History of Present Illness: This patient presents to our emergency department because of increasing lower abdominal and pelvic pain over the past several days. He has had decreased ability to urinate normally over the past 2 days. He states that he has to massage his lower abdomen to get urine to dribble out. He states he has not had a regular bowel movement in the last 2 days as well. He has a known history of a distal colonic mass and is in the process of a workup. He saw oncology recently and is scheduled to see general surgery. He denies any fevers or chills. He states his intake has been decreased over the past couple days because of decreased output. He takes morphine on a regular basis because of pain but states he takes very little amount and has been using a stool/bowel regimen as well. He has no history of BPH or urinary retention in the past. Review of Systems 2 Const: Denies: fever(s) or chills Eyes: Denies: change in vision ENMT: Denies: throat pain or odynophagia Resp: Denies: dyspnea, productive cough or non-productive cough GI: Reports: abdominal pain, constipation and change in bowel habits : Reports: difficulty urinating, urinary hesitancy and urinary dribbling Musc: Denies: back pain, extremity pain or extremity swelling Skin/Breast: Denies: rash Neuro: Denies: headache(s), numbness in extremities or weakness in extremities Russ/Lymph: Denies: easy bruising or easy bleeding PFSH ED 2 PFSH: Medical History Adenocarcinoma of sigmoid colon Metastases to the liver Lumbar stenosis with neurogenic claudication Constipation Tobacco dependence Surgical History Hx of shoulder surgery Hx of knee surgery Family History Father Cancer lung Mother Cancer colon Denies family history of Liver disease Diabetes CAD (coronary artery disease) Aneurysm Clotting disorder Dementia Depression Hyperlipidemia Hyperthyroidism Hypothyroidism Psychiatric illness Chronic kidney disease (CKD) Anesthesia complication Bleeding disorder Lung disease Hypertension Stroke Social History Smoking and tobacco/nicotine status: current every day tobacco/nicotine user cigarettes Packs smoked per day: 1 [ Other cigarette details: 40 year pack history] Alcohol intake: former Substance/Drug Use: former Date of last use: not currently, many moons before Lives independently: Yes Marital status: Number of children: 2 Current occupational status: disabled Special lacie needs: No Agree to transfusion: Yes Physical Exam 2 Narrative: EXAM NARRATIVE: Patient is alert awake makes good eye contact speech is goal-directed. Const: COMMON NORMALS: no acute distress, patient oriented x3 and alert G ENERAL APPEARANCE: cooperative NUTRITIONAL APPEARANCE: thin HENMT: COMMON NORMALS: normocephalic, moist oral mucous membranes and oropharynx normal HEAD & SCALP: normocephalic Eye: COMMON NORMALS: Equal, round and reactive pupils present, EOMs intact bilaterally, conjunctivae normal and no scleral icterus CONJUNCTIVA: Yes conjunctivae normal PUPIL: Yes Equal, round and reactive pupils present Neck/C-Spine: COMMON NORMALS: full ROM, no lymphadenopathy and no JVD Chest: COMMONS NORMALS: normal inspection of the chest Resp: COMMON NORMALS: normal respiratory effort, No retractions and clear to auscultation bilaterally EFFORT & INSPECTION: Yes able to speak in complete sentences AUSCULTATION: clear to auscultation bilaterally Cardio: COMMON NORMALS: no JVD, regular rate, regular rhythm and Peripheral pulses 2+ throughout RATE: regular rate RHYTHM: regular rhythm P ERIPHERAL PULSES: Peripheral pulses 2+ throughout GI: COMMON NORMALS: Normal to inspection, nondistended, normoactive bowel sounds present RECTAL EXAM: Yes visual inspection normal, Yes normal sphincter tone, No fecal impaction and No mass OTHER: Rectal examination was performed digitally and after entering past the anal sphincter into the proximal vestibule the rectum there was no appreciable stool noted or any other palpable abnormality at that location. : COMMON NORMALS: Yes no CVA tenderness BLADDER/KIDNEY EXAM: Yes no CVA tenderness Back/Pelvis: COMMON NORMALS: no CVA tenderness, thoracic and lumbar spine normal to inspection and no thoracic nor lumbar tenderness Extremity: COMMON NORMALS: normal to inspection, full ROM, capillary refill normal and no calf tenderness Neuro: COMMON NORMALS: patient oriented x3, moves all extremities, no focal motor deficits and no sensory deficits noted SENSORIUM/ORIENTATION: Yes alert Psych: COMMON NORMALS: mental status grossly normal Skin: COMMON NORMALS: no rashes or lesions noted, no wounds, turgor normal and no jaundice GENERAL SKIN EXAM: no rashes or lesions noted and turgor normal Course 2 Reevaluation(s): Reevaluation #1: Bedside ultrasound of the bladder reveals moderate amount of urine. Subsequent bladder scan calculated 200 mL of urine in the bladder. Time: 16:38 Vital Signs: Vital signs: Vital Signs Temperature 98.3 F 01/30/23 15:04 Pulse Rate 97 01/30/23 16:16 Respiratory Rate 16 01/30/23 18:33 Blood Pressure 182/113 01/30/23 16:16 Pulse Oximetry 95 01/30/23 18:33 Oxygen Delivery Me thod Room Air 01/30/23 16:16 MDM - Male Medical Decision Making This patient presented to the emergency department because of increasing pain in his pelvis and feeling like he could not urinate successfully and not having a good bowel movement in the last 24 hours. He has a history of recently diagnosed adenocarcinoma of the sigmoid colon. He denies any constitutional complaints otherwise such as fever chills etc. His workup has been initiated by oncology but he has not seen general surgery for his infusion port placement etc. His clinical exam revealed him to be a thin male who is in no acute distress and cooperative. His clinical exam and otherwise revealed a flat abdomen without any peritoneal signs. His rectal examination revealed normal rectal tone no stool or mass noted within the examining finger. A bedside ultrasound and bladder scan revealed approximately 200 mL of urine in his bladder. Workup ensued to ensure no evidence of bowel obstruction, significant urinary retention etc. CT scan was unchanged from previous CT scans without any evidence of bowel obstruction or other concerning findings of acute nature. With the pain control he was able to urinate without any difficulty. His current clinical condition does not suggest any acute emergency process at this time but certainly his pain level has been not well-controlled over the past day or so and apparently he just got his extended release and immediate release morphine prescriptions. We discussed the need for adhering to the recommendations from his oncologist to make sure that his pain is under a reasonable level using the extended release with the immediate relief for pain elevation or pain escalation periods. We also discussed the need to take his MiraLAX and a regular bowel regimen basis to help produce soft loose stools and prevent and or reduce the likelihood of constipation. He is currently clinically stable and desires to be discharged which is reasonable at this time we discussed return precautions in detail with both he and his spouse. Medical Records I reviewed the patient's medical records. History of adenocarcinoma primary of the colon with metastasis to the liver. Has follow-up scheduled with general surgery for port placement another considerations. Lab Data I reviewed the patient's lab results. 01/30/23 15:09 01/30/23 15:09 Radiology Impressions Abdomen/Pelvis CT 01/30/23 16:32 IMPRESSION: 1. Multifocal metastatic foci throughout the liver measuring up to 7 cm, similar to prior exam. 2. 6.8 cm soft tissue sigmoid mass again seen likely reflecting a malignant process, similar to prior exam, with several suspected enlarged adjacent lymph nodes measuring up to 15 mm. 3. Bilateral punctate nonobstructing renal calyceal stones. 4. Left proximal renal artery atherosclerotic calcification with suspected 70-80% luminal narrowing. 5. Coronary artery atherosclerotic calcifications. 6. Constipation. 7. Fusiform infrarenal abdominal aortic aneurysm measuring up 2.6 cm similar to prior exam. Laboratory Results WBC 8.58 10^3/uL (3.29-11.43) 01/30/23 15:09 RBC 4.08 10^6/uL (3.85-5.65) 01/30/23 15:09 Hgb 10.20 g/dL (11.27-16.99) L 01/30/23 15:09 Hct 33.3 % (37-53) L 01/30/23 15:09 MCV 81.6 fl (82-101) L 01/30/23 15:09 MCH 25.0 pg (27-33) L 01/30/23 15:09 MCHC 30.6 g/dL (30-55) 01/30/23 15:09 RDW 23.2 % (12.1-15.1) H 01/30/23 15:09 Plt Count 438 10^3/cmm (157-399) H 01/30/23 15:09 MPV 9.8 fL (7.4-10.4) 01/30/23 15:09 Neut % (Auto) 81.9 % 01/30/23 15:09 Lymph % (Auto) 8.9 % 01/30/23 15:09 Bulloch % (Auto) 7.8 % 01/30/23 15:09 Eos % (Auto) 0.5 % 01/30/23 15:09 Baso % (Auto) 0.7 % 01/30/23 15:09 Neut # (Auto) 7.03 10^3/uL (1.8-7.7) 01/30/23 15:09 Lymph # (Auto) 0.8 10^3/uL (0.8-4.8) 01/30/23 15:09 Bulloch # (Auto) 0.7 10^3/uL (0.2-0.9) 01/30/23 15:09 Eos # (Auto) 0.0 10^3/uL (0.0-0.8) 01/30/23 15:09 Baso # (Auto) 0.1 10^3/uL (0.0-0.1) 01/30/23 15:09 Nucleated RBC % (auto) 0 % 01/30/23 15:09 Nucleated RBCs # 0.0 /100WBC 01/30/23 15:09 Sodium 136 mmol/L (136-145) 01/30/23 15:09 Potassium 3.9 mmol/L (3.5-5.1) 01/30/23 15:09 Chloride 97 mmol/L (98-107) L 01/30/23 15:09 Carbon Dioxide 26 mmol/L (22-29) 01/30/23 15:09 Anion Gap 16.9 (5-19) 01/30/23 15:09 BUN 7 mg/dL (8-23) L 01/30/23 15:09 Creatinine 0.6 mg/dL (0.7-1.2) L 01/30/23 15:09 GFR Calculation 136.1 mL/min (90-130) H 01/30/23 15:09 Glucose 119 mg/dL (65-115) H 01/30/23 15:09 Calculated Osmolality 281 mOsm/kg (285-295) L 01/30/23 15:09 Calcium 9.2 mg/dL (8.5-10.5) 01/30/23 15:09 Total Bilirubin 0.5 mg/dL (0.15-1.2) 01/30/23 15:09 AST 41 U/L (0-40) H 01/30/23 15:09 ALT 20 U/L (0-41) 01/30/23 15:09 Alkaline Phosphatase 388 U/L (40-130) H 01/30/23 15:09 Total Protein 6.6 g/dL (6.6-8.7) 01/30/23 15:09 Albumin 3.5 g/dL (3.5-5.2) 01/30/23 15:09 Globulin 3.1 g/dL (1.3-4.6) 01/30/23 15:09 All radiology interpretation(s) finalized by discharge Discharge Plan Discharge Patient Disposition: Home Clinical Impression: Pain in pelvis, Adenocarcinoma of sigmoid colon Condition: Stable Prescriptions: No Action sucralfate [Carafate] 1 gram tablet 1 g PO BID Qty: 84 0RF pantoprazole [Protonix] 40 mg tablet,delayed release (DR/EC) 40 mg PO BID Qty: 84 0RF morphine 30 mg Tablet Extended Release 30 mg PO Q12H PRN (Reason: Pain) Miralax 17 gram/dose Powder 4 g PO DAILY morphine 15 mg Tablet 15 mg PO Q6H PRN (Reason: Pain) Discharge Orders: Discharge ED (Routine); Ordered 01/30/23 Ordered By: Mike Pierce Referrals: Crescencio Sotomayor MD [Primary Care Provider] - Discharge Diet: Usual diet Discharge Activity: Increase activity as tolerated Patient Instructions: Opioid Safety, Pain Management Activity Restrictions/Additional Instructions: As we discussed while you are in the emergency department is important for you to take your extended release morphine on a scheduled basis to help control your pain. We also recommend increase your MiraLAX to 2 scoops in the morning and 2 scoops in the evening to help reduce likelihood of constipation or problems with your stools. Follow-up with your oncologist and general surgeon as scheduled. If it anytime you develop increasing pain, inability to urinate or defecate fevers chills or other concerning symptoms return to this or the nearest emergency department immediately Coding Level of Care Code ED Mechanical Systems Design Engineer for Ondina Lau
--- NOTE | 2023-01-30 16:32 | CTR_ITS ---
PROCEDURE INFORMATION: Exam: CT Abdomen And Pelvis With Contrast Exam date and time: 01/30/2023 5:18 PM Age: 62 years old Clinical indication: Abdominal pain; Generalized; Additional info: Sigmoid mass and increased pain and cannot urinate/deficate TECHNIQUE: Imaging protocol: Computed tomography of the abdomen and pelvis with contrast. Radiation optimization: All CT scans at this facility use at least one of these dose optimization techniques: automated exposure control; mA and/or kV adjustment per patient size (includes targeted exams where dose is matched to clinical indication); or iterative reconstruction. Contrast material: OMNI 350; Contrast volume: 85 ml; Contrast route: INTRAVENOUS (IV); REPORTING DATA: Count of CT and Cardiac NM exams in prior 12 months: This patient has received [address] and 0 known cardiac nuclear medicine studies in the 12 months prior to the current study. COMPARISON: CT abdomen pelvis w con* [id number] 12/31/2022 1:48 AM RADIATION DOSE METRICS: Total DLP (mGy-cm): 357.02 FINDINGS: Coronary arteries: Coronary artery atherosclerotic calcifications. Liver: Multifocal metastatic foci throughout the liver measuring up to 7 cm, similar to prior exam. Gallbladder and bile ducts: Normal. No calcified stones. No ductal dilation. Pancreas: Normal. No ductal dilation. Spleen: Normal. No splenomegaly. Adrenal glands: Normal. No mass. Kidneys and ureters: Bilateral punctate nonobstructing renal calyceal stones. Stomach and bowel: Constipation. Appendix: No evidence of appendicitis. Intraperitoneal space: Unremarkable. No free air. No significant fluid collection. Vasculature: Left proximal renal artery atherosclerotic calcification with suspected 70-80% luminal narrowing. Fusiform infrarenal abdominal aortic aneurysm measuring up 2.6 cm similar to prior exam. Lymph nodes: See Soft tissues finding. Urinary bladder: Unremarkable as visualized. Reproductive: Unremarkable as visualized. Bones/joints: Unremarkable. No acute fracture. Soft tissues: 6.8 cm soft tissue sigmoid mass again seen likely reflecting a malignant process, similar to prior exam, with several suspected enlarged adjacent lymph nodes measuring up to [address]/CT abdomen pelvis w con* [id number] IMPRESSION: 1. Multifocal metastatic foci throughout the liver measuring up to 7 cm, similar to prior exam. 2. 6.8 cm soft tissue sigmoid mass again seen likely reflecting a malignant process, similar to prior exam, with several suspected enlarged adjacent lymph nodes measuring up to 15 mm. 3. Bilateral punctate nonobstructing renal calyceal stones. 4. Left proximal renal artery atherosclerotic calcification with suspected 70-80% luminal narrowing. 5. Coronary artery atherosclerotic calcifications. 6. Constipation. 7. Fusiform infrarenal abdominal aortic aneurysm measuring up 2.6 cm similar to prior exam.
[2023-01-30] MEDS: iohexol 350 mg/mL 500 mL Btl (per mL) IV (17:22)
[2023-01-30] MEDS: ondansetron 2 mg/ML SDV 2 mL 4 MG IVP (17:33)
[2023-01-30 17:35] VITALS: RESP 16
[2023-01-30] MEDS: morphine 4 mg/mL SDV 1 mL IVP (17:35)
[2023-01-30] MEDS: lactated ringers 1,000 ML 125 ML IV (17:38)
[2023-01-30 18:33] VITALS: RESP 16; O2SAT 95
[2023-01-30] MEDS: HYDROmorphone 1 mg/mL INJ 1 mL IVP (18:33)
[2023-01-30 19:07] VITALS: BP 177/100; PULSE 76; O2SAT 97
== END 2023-01-30 19:09 | disposition home or self-care (01) ==
PROVIDERS: Nurse Practitioner Family; Emergency Provider Emergency Medicine; PCP Family Medicine
DX: R10.2 Pelvic and perineal pain (principal); C18.7 Malignant neoplasm of sigmoid colon; K59.00 Constipation, unspecified; F17.210 Nicotine dependence, cigarettes, uncomplicated; Z85.05 Personal history of malignant neoplasm of liver
CPT/HCPCS: 74177; 80053; 85025; 96374; 96375; 99285; J1170; J2270; J2405; J7120; Q9967

== ENCOUNTER 2023-03-11 17:23 | Emergency (ER) | payer MEDICAID, SELFPAY ==
[2023-03-11 17:26] VITALS: BP 149/79; PULSE 74; RESP 16; TEMP 36.7; O2SAT 97; BMI 19.3
[2023-03-11 18:42] LABS: Basophils # 0.1 10^3/uL (0.0-0.1); Basophils % 0.7 %; Eosinophils # 0.2 10^3/uL (0.0-0.8); Eosinophils % 2.2 %; Lymphocytes # 0.7 10^3/uL (0.8-4.8); Lymphocytes % 8.2 %; Mean Corpuscular HGB Conc 31.1 g/dL (30-55); Mean Corpuscular Hemoglobin 26.4 pg (27-33); Mean Corpuscular Volume 85.1 fl (82-101); Mean Platelet Volume 9.6 fL (7.4-10.4); Monocytes # 0.8 10^3/uL (0.2-0.9); Monocytes % 9.1 %; Neutrophils # 7.04 10^3/uL (1.8-7.7); Neutrophils % 79.6 %; Nucleated Red Blood Cells % 0 %; Platelet Count 379 10^3/cmm (157-399); Red Blood Count 3.29 10^6/uL (3.85-5.65); Red Cell Distribution Width 19.1 % (12.1-15.1); White Blood Count 8.83 10^3/uL (3.29-11.43)
--- NOTE | 2023-03-11 18:47 | CTR_ITS ---
PROCEDURE INFORMATION: Exam: CT Abdomen And Pelvis With Contrast Exam date and time: 03/11/2023 8:32 PM Age: 62 years old Clinical indication: Abdominal pain; Generalized; Prior surgery; Surgery date: <1 month; Surgery type: Stoma; Additional info: Bloating, stoma pain, colon cancer, urinary retention TECHNIQUE: Imaging protocol: Computed tomography of the abdomen and pelvis with contrast. Radiation optimization: All CT scans at this facility use at least one of these dose optimization techniques: automated exposure control; mA and/or kV adjustment per patient size (includes targeted exams where dose is matched to clinical indication); or iterative reconstruction. Contrast material: OMNI 350; Contrast volume: 100 ml; Contrast route: INTRAVENOUS (IV); COMPARISON: CT abdomen pelvis w con* [id number] 01/30/2023 5:18 PM RADIATION DOSE METRICS: Total DLP (mGy-cm): 409 FINDINGS: Lungs: Mild dependent atelectasis. Pleural spaces: Minimal bilateral pleural effusions. Coronary arteries: Coronary artery calcifications. Liver: Enlarged liver measures 24.4 cm in craniocaudal dimension and shows increased size of multiple hepatic metastases with index right liver lesion measuring 11.9 x 6.9 cm on axial image 29 of series 3, previously 9.3 x 5.4 cm. Index left liver lesion measures 10.4 x 8.6 cm on axial image 25 of series 3, previously 8.7 x 7.3 cm. Gallbladder and bile ducts: Normal. No calcified stones. No ductal dilation. Pancreas: Normal without ductal dilatation. Spleen: Enlarged spleen measures 14.8 cm in maximal dimension. Adrenal glands: Normal. No mass. Kidneys and ureters: Tiny bilateral renal calcifications without hydronephrosis. Otherwise unremarkable. Stomach and bowel: Increased size of sigmoid colon mass measuring 7.3 x 6.5 cm on axial image 73 of series 3, previously 6.8 x 6.0 cm. Several adjacent abnormal lymph nodes are also increased in size with index node on axial image 80 of series 3 measuring 3.0 x 2.3 cm, previously 2.6 x 1.8 cm. Interval left abdominal colostomy. Moderate proximal colonic stool burden without bowel dilatation to suggest high-grade obstruction. Appendix: No evidence of appendicitis. Intraperitoneal space: Diffuse edema and ascites throughout the abdomen and pelvis. No free air or focal well organized fluid collection. Vasculature: Heavy systemic atherosclerosis with stable infrarenal abdominal ectasia measuring 2.6 cm. Lymph nodes: See Stomach and bowel finding. Urinary bladder: Urinary bladder is unremarkable. Reproductive: Unremarkable as visualized. Bones/joints: No acute fracture. No aggressive osteolytic or blastic lesion. Redemonstrated nonaggressive left iliac sclerotic focus. Degenerative changes along the spine. Soft tissues: Diffuse subcutaneous edema. CT/CT abdomen pelvis w con* [id number] IMPRESSION: 1. Worsening metastatic colon cancer to include increased size of sigmoid colon mass, worsening regional lymphadenopathy and increased size of multiple hepatic metastases. 2. Interval left ostomy and moderate proximal colonic stool burden. No high-grade obstruction. 3. Splenomegaly. 4. Diffuse abdominal edema and ascites. 5. Minimal bilateral pleural effusions. 6. Additional chronic and incidental findings as above, to include nonobstructive nephrolithiasis and atherosclerosis with stable infrarenal abdominal aortic ectasia.
[2023-03-11 18:59] LABS: INR 1.11 (0.8-1.2); Partial Thromboplastin Time 34.3 SECONDS (23.9-36.7)
--- NOTE | 2023-03-11 19:06 | ED_ITS ---
HPI - Skin/Abscess/Foreign Bdy 2 General: Chief complaint: Skin/Abscess/Foreign Body Stated complaint: colonoscopy bag has blood abd swollen Time Seen by Provider: 03/11/23 18:09 History of Present Illness: Patient presents to the ER today with complaints of abdominal pain, bloating, no stool in his colostomy bag today, and urinary retention. Patient just received his colostomy on March 01, 2022 at [facility] for advanced colon cancer. Patient stated his colostomy is working good up through yesterday. But today he has not had any stool production from it even though he has taken 3 Colace. Patient also feels like he needs to urinate but does not remember urinating today. Patient has had urinary retention in the past that did require catheterization. Patient also had his first dose of radiation therapy today. Review of Systems 2 General: Reports: 10 or more systems reviewed and unremarkable except in HPI and below PFSH ED 2 PFSH: Medical History Adenocarcinoma of sigmoid colon Metastases to the liver Lumbar stenosis with neurogenic claudication Constipation Tobacco dependence Surgical History Hx of shoulder surgery Hx of knee surgery Family History Father Cancer lung Mother Cancer colon Denies family history of Liver disease Diabetes CAD (coronary artery disease) Aneurysm Clotting disorder Dementia Depression Hyperlipidemia Hyperthyroidism Hypothyroidism Psychiatric illness Chronic kidney disease (CKD) Anesthesia complication Bleeding disorder Lung disease Hypertension Stroke Social History Smoking and tobacco/nicotine status: current every day tobacco/nicotine user cigarettes Packs smoked per day: 1 [ Other cigarette details: 40 year pack history] Alcohol intake: former Substance/Drug Use: former Date of last use: not currently, many moons before Lives independently: Yes Marital status: Number of children: 2 Current occupational status: disabled Special lacie needs: No Agree to transfusion: Yes Physical Exam 2 Const: COMMON NORMALS: no acute distress, average body habitus, patient oriented x3, no limitations, healthy appearing, alert and well nourished HENMT: COMMON NORMALS: normocephalic, atraumatic, hearing grossly normal bilaterally, external ears normal, Normal external nose present, moist oral mucous membranes and oropharynx normal HEAD & SCALP: normocephalic and atraumatic NOSE: Normal external nose present EXTERNAL EAR: Yes external ears normal Neck/C-Spine: COMMON NORMALS: full ROM, no lymphadenopathy, supple, no meningeal signs, no JVD and Thyroid normal THYROID: Thyroid normal Chest: COMMONS NORMALS: normal inspection of the chest and normal palpation of entire chest wall Resp: COMMON NORMALS: normal respiratory effort, No retractions, No use of accessory muscles and clear to auscultation bilaterally AUSCULTATION: clear to auscultation bilaterally Cardio: COMMON NORMALS: no JVD, regular rate, regular rhythm, S1 normal heart sound present, S2 normal heart sound present, No gallops present (Cardio), No clicks present (Cardio), No murmurs present (Cardio) and No rub (Cardio) R ATE: regular rate RHYTHM: regular rhythm HEART SOUNDS: S1 normal heart sound present and S2 normal heart sound present GI: COMMON NORMALS: Soft to palpation; negative for Normal to inspection, nondistended, normoactive bowel sounds present (Diffusely bloated with bowel sounds in all 4 quadrants) and negative for non-tender (Mildly diffusely tender) PALPATION: Yes Soft to palpation Neuro: COMMON NORMALS: patient oriented x3 SENSORIUM/ORIENTATION: Yes alert MENINGEAL SIGNS: Yes no meningeal signs Course 2 Vital Signs: Vital signs: Vital Signs Temperature 98.0 F 03/11/23 17:26 Pulse Rate 74 03/11/23 17:26 Respiratory Rate 18 03/11/23 19:37 Blood Pressure 149/79 03/11/23 17:26 Pulse Oximetry 97 03/11/23 17:26 Oxygen Delivery Me thod Room Air 03/11/23 17:26 MDM - Skin/Abscess/Foreign Bdy Medicial Decision Making Patient comes to the ER with abdominal pain, constipation, and urinary retention. Patient had bladder scan he only had about 300 mL in a [place] was placed and his bladder drained within the patient wanted out. So we took it out. Lab work was obtained which was essentially benign. Contrasted CT scan was obtained which showed worsening metastatic colon disease and sigmoid mass but no high-grade obstruction. It did show moderate stool burden. These results was discussed with the patient who wanted to go home and try the MiraLAX and Colace more frequently at higher doses. Patient was offered an enema through his ostomy which she declined at this time. Differential Diagnosis Unlikely abscess of skin or subcutaneous tissue, viral exanthem, dermatophytosis, urticaria, herpes zoster, allergic reaction to drug, cellulitis, eczema, insect bites or impetigo Medical Records I reviewed the patient's medical records. Lab Data I reviewed the patient's lab results. 03/11/23 18:21 03/11/23 18:21 Radiology Impressions Abdomen/Pelvis CT 03/11/23 18:47 IMPRESSION: 1. Worsening metastatic colon cancer to include increased size of sigmoid colon mass, worsening regional lymphadenopathy and increased size of multiple hepatic metastases. 2. Interval left ostomy and moderate proximal colonic stool burden. No high-grade obstruction. 3. Splenomegaly. 4. Diffuse abdominal edema and ascites. 5. Minimal bilateral pleural effusions. 6. Additional chronic and incidental findings as above, to include nonobstructive nephrolithiasis and atherosclerosis with stable infrarenal abdominal aortic ectasia. Laboratory Results WBC 8.83 10^3/uL (3.29-11.43) 03/11/23 18:21 RBC 3.29 10^6/uL (3.85-5.65) L 03/11/23 18:21 Hgb 8.70 g/dL (11.27-16.99) L 03/11/23 18:21 Hct 28.0 % (37-53) L 03/11/23 18:21 MCV 85.1 fl (82-101) 03/11/23 18:21 MCH 26.4 pg (27-33) L 03/11/23 18:21 MCHC 31.1 g/dL (30-55) 03/11/23 18:21 RDW 19.1 % (12.1-15.1) H 03/11/23 18:21 Plt Count 379 10^3/cmm (157-399) 03/11/23 18:21 MPV 9.6 fL (7.4-10.4) 03/11/23 18:21 Neut % (Auto) 79.6 % 03/11/23 18:21 Lymph % (Auto) 8.2 % 03/11/23 18:21 [place] % (Auto) 9.1 % 03/11/23 18:21 Eos % (Auto) 2.2 % 03/11/23 18:21 Baso % (Auto) 0.7 % 03/11/23 18:21 Neut # (Auto) 7.04 10^3/uL (1.8-7.7) 03/11/23 18:21 Lymph # (Auto) 0.7 10^3/uL (0.8-4.8) L 03/11/23 18:21 [place] # (Auto) 0.8 10^3/uL (0.2-0.9) 03/11/23 18:21 Eos # (Auto) 0.2 10^3/uL (0.0-0.8) 03/11/23 18:21 Baso # (Auto) 0.1 10^3/uL (0.0-0.1) 03/11/23 18:21 Nucleated RBC % (auto) 0 % 03/11/23 18:21 Nucleated RBCs # 0.0 /100WBC 03/11/23 18:21 PT 14.60 SECONDS (12.1-14.9) 03/11/23 18:21 INR 1.11 (0.8-1.2) 03/11/23 18:21 APTT 34.3 SECONDS (23.9-36.7) 03/11/23 18:21 Sodium 136 mmol/L (136-145) 03/11/23 18:21 Potassium 3.9 mmol/L (3.5-5.1) 03/11/23 18:21 Chloride 98 mmol/L (98-107) 03/11/23 18:21 Carbon Dioxide 28 mmol/L (22-29) 03/11/23 18:21 Anion Gap 13.9 (5-19) 03/11/23 18:21 BUN 9 mg/dL (8-23) 03/11/23 18:21 Creatinine 0.5 mg/dL (0.7-1.2) L 03/11/23 18:21 GFR Calculation 167.9 mL/min (90-130) H 03/11/23 18:21 Glucose 94 mg/dL (65-115) 03/11/23 18:21 Calculated Osmolality 280 mOsm/kg (285-295) L 03/11/23 18:21 Calcium 8.3 mg/dL (8.5-10.5) L 03/11/23 18:21 Total Bilirubin 0.3 mg/dL (0.15-1.2) 03/11/23 18:21 AST 56 U/L (0-40) H 03/11/23 18:21 ALT 39 U/L (0-41) 03/11/23 18:21 Alkaline Phosphatase 941 U/L (40-130) H 03/11/23 18:21 Total Protein 5.9 g/dL (6.6-8.7) L 03/11/23 18:21 Albumin 3.0 g/dL (3.5-5.2) L 03/11/23 18:21 Globulin 2.9 g/dL (1.3-4.6) 03/11/23 18:21 Urine Color Yellow (Yellow) 03/11/23 19:15 Urine Appearance Clear (CLEAR) 03/11/23 19:15 Urine pH 6 (5-7) 03/11/23 19:15 Ur Specific [place] 1.020 (1.005-1.030) 03/11/23 19:15 Urine Protein Trace (Negative) 03/11/23 19:15 Urine Glucose (UA) Norm (Normal) 03/11/23 19:15 Urine Ketones Negative (Negative) 03/11/23 19:15 Urine Blood 2+ (Negative) H 03/11/23 19:15 Urine Nitrate Negative (Negative) 03/11/23 19:15 Urine Bilirubin Neg (Negative) 03/11/23 19:15 Urine Urobilinogen Norm mg/dL (Negative) 03/11/23 19:15 Ur Leukocyte Esterase Negative (Negative) 03/11/23 19:15 Urine RBC 0-4 /hpf (0-2) H 03/11/23 19:15 Urine WBC 0-4 /hpf (0-5) H 03/11/23 19:15 Ur Squamous Epith Cells None /hpf (0-5) 03/11/23 19:15 Amorphous Sediment Trace /hpf 03/11/23 19:15 Urine Bacteria None /hpf (NONE) 03/11/23 19:15 Urine Mucus 1+ /hpf 03/11/23 19:15 All radiology interpretation(s) finalized by discharge Discharge Plan Discharge Patient Disposition: Home Clinical Impression: Constipation, Abdominal pain Condition: Stable Prescriptions: No Action capecitabine 500 mg tablet PO Rx Instructions: Take 3 tabs in the am and 4 tabs in pm on days 1-14 of each 21 chemo cycle hydrocortisone 2.5 % cream with perineal applicator 1 applic [place] DAILY PRN naloxone 4 mg/actuation spray,non-aerosol 4 mg intranasal Q2M PRN Rx Instructions: spray 1 dose into ONE nostril; alternate nostrils w each dose until help arrives morphine 30 mg tablet extended release 30 mg PO Q12H PRN (Reason: Pain) 30 Days Qty: 60 0RF simethicone [Gas Relief (simethicone)] 180 mg capsule 180 mg PO DAILY PRN (Reason: abdominal distention) Qty: 30 0RF tamsulosin [Flomax] 0.4 mg capsule 0.4 mg PO DAILY Qty: 30 0RF ondansetron 4 mg tablet,disintegrating 4 mg PO Q6H Qty: 90 0RF diazepam 5 mg tablet 2.5 mg PO Q8H PRN (Reason: muscle spasm) Qty: 45 0RF hydromorphone 4 mg tablet 8 mg PO Q8H PRN (Reason: pain) 7 Days Qty: 20 0RF Rx Instructions: do not take with morphine. sucralfate 1 gram tablet See Rx Instructions .ROUTE .COMPLEX Qty: 120 1RF Dose Instruction: TAKE 1 TABLET BY MOUTH TWICE DAILY FOR ACID REFLUX Rx Instructions: TAKE 1 TABLET BY MOUTH TWICE DAILY FOR ACID REFLUX (DME) colostomy bags See Rx Instructions .Route .MEDSUPPLY Qty: 30 3RF Rx Instructions: As directed metoclopramide HCl 10 mg tablet 10 mg PO BID PRN (Reason: nausea and vomiting) Qty: 60 1RF (DME) Home self urinary straight cath kid See Rx Instructions .Route .MEDSUPPLY Qty: 1 0RF Rx Instructions: As directed Miralax 17 gram/dose Powder 4 g PO DAILY Discharge Orders: Discharge ED (Routine); Ordered 03/11/23 Ordered By: Nikko Higuera Referrals: Crescencio Sotomayor MD [Primary Care Provider] - 1 week Patient Instructions: Abdominal Pain (ED), Constipation - Oncology Activity Restrictions/Additional Instructions: Please drink plenty of water, please increase your dose of your Colace and MiraLAX until you have been soft almost runny stools this may take a couple days. If your pain worsens or you not get results please feel free to return to the ER. Coding Level of Care Code ED Property Accountant for Ondina Lau
[2023-03-11 19:08] LABS: Alanine Aminotransferase 39 U/L (0-41); Alkaline Phosphatase 941 U/L (40-130); Anion Gap 13.9 (5-19); Aspartate Amino Transferase 56 U/L (0-40); Blood Urea Nitrogen 9 mg/dL (8-23); Calcium 8.3 mg/dL (8.5-10.5); Carbon Dioxide 28 mmol/L (22-29); Chloride 98 mmol/L (98-107); Creatinine Clr Calc Pharmacy 146.0733; Globulin 2.9 g/dL (1.3-4.6); Glomerular Filtration Rate 167.9 mL/min (90-130); Glucose 94 mg/dL (65-115); Osmolality Calculated 280 mOsm/kg (285-295); Potassium 3.9 mmol/L (3.5-5.1); Sodium 136 mmol/L (136-145); Total Bilirubin 0.3 mg/dL (0.15-1.2); Total Protein 5.9 g/dL (6.6-8.7)
[2023-03-11] MEDS: iohexol 350 mg/mL 500 mL Btl (per mL) IV (19:27)
[2023-03-11 19:37] VITALS: RESP 18
[2023-03-11] MEDS: HYDROmorphone 1 mg/mL INJ 1 mL IVP ×2 (19:37→21:46)
[2023-03-11 19:44] LABS: Glucose Urine UA Norm (Normal); Ketones Urine Negative (Negative); Protein Urine Trace (Negative); Urine Appearance Clear (CLEAR); Urine Color Yellow (Yellow); pH Urine 6 (5-7)
[2023-03-11 19:45] LABS: Add Urine Microscopic? YES; Bilirubin Urine Neg (Negative); Blood Urine 2+ (Negative); Leukocyte Esterase Urine Negative (Negative); Nitrate Urine Negative (Negative); Urobilinogen Urine Norm (Negative)
[2023-03-11 20:12] LABS: Add Urine Culture? No; Amorphous Sediment Urine TRACE /hpf; Mucus Urine 1+ /hpf; RBC Urine 0-4 /hpf (0-2); WBC Urine 0-4 /hpf (0-5)
[2023-03-11 21:46] VITALS: RESP 18; O2SAT 98
[2023-03-11 21:57] VITALS: BP 159/89; PULSE 80; O2SAT 95
== END 2023-03-11 21:58 | disposition home or self-care (01) ==
PROVIDERS: Nurse Practitioner Family; Emergency Provider Emergency Medicine; PCP Family Medicine
DX: K59.00 Constipation, unspecified (principal); Z72.0 Tobacco use; Z85.038 Personal history of other malignant neoplasm of large intestine; Z85.05 Personal history of malignant neoplasm of liver
CPT/HCPCS: 36415; 51798; 74177; 80053; 81001; 85025; 85610; 85730; 96374; 96376; 99285; J1170; Q9967

== ENCOUNTER 2023-03-23 23:28 | Emergency (ER) | payer MEDICAID, SELFPAY ==
[2023-03-23 23:34] VITALS: BP 203/114; PULSE 92; RESP 18; O2SAT 95
--- NOTE | 2023-03-23 23:50 | XRR_ITS ---
PROCEDURE INFORMATION: Exam: XR Abdomen Exam date and time: 03/24/2023 12:17 AM Age: 62 years old Clinical indication: Abdominal pain; Other: See below; Prior surgery; Surgery date: 6+ months; Patient HX: Pain at site of stoma bag; Additional info: Llq abd pain, constipation, known cancer with mets TECHNIQUE: Imaging protocol: Radiologic exam of the abdomen. Views: Frontal supine view of the abdomen. 1 View. COMPARISON: CT abdomen pelvis w con* [id number] 03/11/2023 8:32 PM FINDINGS: Gastrointestinal tract: Normal. No bowel dilation. Bones/joints: Unremarkable. XR/XR abdomen 1V* [id number] IMPRESSION: No acute findings.
[2023-03-24] VITALS (7 sets, daily range): BP systolic 153–169; BP diastolic 86–97; PULSE 63–76; RESP 14–18; O2SAT 94–98
[2023-03-24] MEDS: ondansetron 2 mg/ML SDV 2 mL 4 MG IVP (00:04)
[2023-03-24] MEDS: HYDROmorphone 1 mg/mL INJ 1 mL IVP ×4 (00:04→04:15)
--- NOTE | 2023-03-24 00:05 | ED_ITS ---
HPI - Abdominal Pain 2 General: Chief Complaint: Abdominal Pain Stated Complaint: abdomen pain, cant void Time Seen by Provider: 03/23/23 23:37 History of Present Illness: Patient presents to the ER with lower left-sided abdominal pain, constipation, and not urinating since this morning. Patient has known metastatic cancer throughout his abdomen. Patient is undergoing treatment for this presently. Patient is on a very large dose of narcotics that he has taken with no relief. Patient feels like he is kidneys and bladder are just going to explode. Patient says he has been eating just fine and he has been having increasing constipation with increasingly firm to hard stools at his stoma. Even though he has been taking multiple medicines for constipation. Patient is on lactulose, Amitiza, MiraLAX. For pain he is taking Roxanol 20 mg/mL 1 mL every 2 hours as needed he states before he came to the ER he took 1-1/2 mL approximately an hour before and is having no relief at all. Review of Systems 2 General: Reports: 10 or more systems reviewed and unremarkable except in HPI and below PFSH ED 2 PFSH: Medical History Adenocarcinoma of sigmoid colon Metastases to the liver Lumbar stenosis with neurogenic claudication Constipation Tobacco dependence Surgical History Hx of shoulder surgery Hx of knee surgery Family History Father Cancer lung Mother Cancer colon Denies family history of Liver disease Diabetes CAD (coronary artery disease) Aneurysm Clotting disorder Dementia Depression Hyperlipidemia Hyperthyroidism Hypothyroidism Psychiatric illness Chronic kidney disease (CKD) Anesthesia complication Bleeding disorder Lung disease Hypertension Stroke Social History Smoking and tobacco/nicotine status: current every day tobacco/nicotine user cigarettes Packs smoked per day: 1 [ Other cigarette details: 40 year pack history] Alcohol intake: former Substance/Drug Use: former Date of last use: not currently, many moons before Lives independently: Yes Marital status: Number of children: 2 Current occupational status: disabled Special lacie needs: No Agree to transfusion: Yes Physical Exam 2 Const: COMMON NORMALS: patient oriented x3, no limitations, alert and well nourished; apparent distress (Mild distress secondary to pain) Neck/C-Spine: COMMON NORMALS: no JVD Chest: COMMONS NORMALS: normal inspection of the chest and normal palpation of entire chest wall Resp: COMMON NORMALS: normal respiratory effort, No retractions, No use of accessory muscles and clear to auscultation bilaterally AUSCULTATION: clear to auscultation bilaterally Cardio: COMMON NORMALS: no JVD, regular rate, regular rhythm, S1 normal heart sound present, S2 normal heart sound present, No gallops present (Cardio), No clicks present (Cardio), No murmurs present (Cardio) and No rub (Cardio) R ATE: regular rate RHYTHM: regular rhythm HEART SOUNDS: S1 normal heart sound present and S2 normal heart sound present GI: COMMON NORMALS: negative for Normal to inspection, nondistended, normoactive bowel sounds present, negative for non-tender and negative for no masses OTHER: Multiple masses palpated in the abdomen. Bladder is tender to palpate Stoma in place. Neuro: COMMON NORMALS: patient oriented x3 SENSORIUM/ORIENTATION: Yes alert Course 2 Vital Signs: Vital signs: Vital Signs Pulse Rate 72 03/24/23 02:57 Respiratory Rate 16 03/24/23 02:57 Blood Pressure 153/86 03/24/23 02:57 Pulse Oximetry 94 03/24/23 02:57 Oxygen Delivery Me thod Room Air 03/24/23 02:57 MDM - Abdominal Pain Medical Decision Making Patient had lab work which was essentially benign for the patient. Patient had an x-ray which showed no acute findings, patient was have to give multiple doses of Dilaudid to control his pain. We did order another CT scan of the abdomen pelvis with contrast. This showed everything similar to the 1 week ago however this was an interval development of left hydronephrosis probably due to the sigmoid mass abutting the distal left ureter. Patient stated this is what he thought that it was happening. Patient was given the option since his kidney function was normal to to go home since his pain was more controlled and try to keep it tolerable as the mass may move off of the ureter and the symptoms resolve or be transferred to urologist where a stent will probably be placed. Patient chose to go home at this time. Patient knows if he develops worsening pain or uncontrolled pain or nausea vomiting fever chills etc. to come back to the ER immediately and he will probably have to be transferred for stent placement to keep this ureter open. Differential Diagnosis Likely abdominal pain and constipation; Unlikely acute appendicitis, calculus of kidney, diverticulitis, endometriosis, gastroenteritis, pancreatitis or small bowel obstruction Medical Records I reviewed the patient's medical records. Lab Data I reviewed the patient's lab results. 03/24/23 00:36 03/24/23 00:36 Labs/Radiology: Radiology Impressions Abdomen X-Ray 03/23/23 23:50 IMPRESSION: No acute findings. Abdomen/Pelvis CT 03/24/23 01:58 IMPRESSION: 1. Redemonstration of a large sigmoid colon mass similar to previous study. Enlarged adjacent lymph nodes again identified. No significant bowel dilation to suggest high-grade obstruction. 2. Large metastatic masses noted in the liver, no change. 3. Interval development of left hydronephrosis, new since prior study, possibly due to sigmoid mass abutting the distal left ureter which is not well visualized. No definite calcified stone. 4. Abdominal ascites. 5. Anasarca. COMMENTS: Consistent with the [place] [employer]'s Incidental Findings Committee white paper (J Am Eva Radiol 2018): Any incidental renal lesion less than 1 cm or classified as too small to characterize, or any incidental cystic renal lesion characterized as simple-appearing, is likely benign. No follow-up imaging is recommended for these lesions per consensus recommendations based on imaging criteria. Laboratory Results WBC 11.15 10^3/uL (3.29-11.43) 03/24/23 00:36 RBC 3.77 10^6/uL (3.85-5.65) L 03/24/23 00:36 Hgb 10.20 g/dL (11.27-16.99) L 03/24/23 00:36 Hct 31.7 % (37-53) L 03/24/23 00:36 MCV 84.1 fl (82-101) 03/24/23 00:36 MCH 27.1 pg (27-33) 03/24/23 00:36 MCHC 32.2 g/dL (30-55) 03/24/23 00:36 RDW 16.9 % (12.1-15.1) H 03/24/23 00:36 Plt Count 318 10^3/cmm (157-399) 03/24/23 00:36 MPV 9.4 fL (7.4-10.4) 03/24/23 00:36 Neut % (Auto) 87.8 % 03/24/23 00:36 Lymph % (Auto) 4.4 % 03/24/23 00:36 [place] % (Auto) 6.4 % 03/24/23 00:36 Eos % (Auto) 0.5 % 03/24/23 00:36 Baso % (Auto) 0.4 % 03/24/23 00:36 Neut # (Auto) 9.79 10^3/uL (1.8-7.7) H 03/24/23 00:36 Lymph # (Auto) 0.5 10^3/uL (0.8-4.8) L 03/24/23 00:36 [place] # (Auto) 0.7 10^3/uL (0.2-0.9) 03/24/23 00:36 Eos # (Auto) 0.1 10^3/uL (0.0-0.8) 03/24/23 00:36 Baso # (Auto) 0.0 10^3/uL (0.0-0.1) 03/24/23 00:36 Nucleated RBC % (auto) 0 % 03/24/23 00:36 Nucleated RBCs # 0.0 /100WBC 03/24/23 00:36 Sodium 137 mmol/L (136-145) 03/24/23 00:36 Potassium 3.4 mmol/L (3.5-5.1) L 03/24/23 00:36 Chloride 97 mmol/L (98-107) L 03/24/23 00:36 Carbon Dioxide 28 mmol/L (22-29) 03/24/23 00:36 Anion Gap 15.4 (5-19) 03/24/23 00:36 BUN 12 mg/dL (8-23) 03/24/23 00:36 Creatinine 0.6 mg/dL (0.7-1.2) L 03/24/23 00:36 GFR Calculation 136.1 mL/min (90-130) H 03/24/23 00:36 Glucose 120 mg/dL (65-115) H 03/24/23 00:36 Calculated Osmolality 285 mOsm/kg (285-295) 03/24/23 00:36 Lactic Acid 2.9 mmol/L (0.5-2.2) H 03/24/23 00:36 Calcium 8.8 mg/dL (8.5-10.5) 03/24/23 00:36 Magnesium 2.1 mg/dL (1.7-2.3) 03/24/23 00:36 Total Bilirubin 0.4 mg/dL (0.15-1.2) 03/24/23 00:36 AST 53 U/L (0-40) H 03/24/23 00:36 ALT 27 U/L (0-41) 03/24/23 00:36 Alkaline Phosphatase 768 U/L (40-130) H 03/24/23 00:36 Total Protein 6.1 g/dL (6.6-8.7) L 03/24/23 00:36 Albumin 3.2 g/dL (3.5-5.2) L 03/24/23 00:36 Globulin 2.9 g/dL (1.3-4.6) 03/24/23 00:36 Urine Color Yellow (Yellow) 03/24/23 02:12 Urine Appearance Sl hazy (CLEAR) A 03/24/23 02:12 Urine pH 7 (5-7) 03/24/23 02:12 Ur Specific [place] 1.020 (1.005-1.030) 03/24/23 02:12 Urine Protein Trace (Negative) 03/24/23 02:12 Urine Glucose (UA) Norm (Normal) 03/24/23 02:12 Urine Ketones Negative (Negative) 03/24/23 02:12 Urine Blood 3+ (Negative) H 03/24/23 02:12 Urine Nitrate Negative (Negative) 03/24/23 02:12 Urine Bilirubin Neg (Negative) 03/24/23 02:12 Urine Urobilinogen Neg mg/dL (Negative) 03/24/23 02:12 Ur Leukocyte Esterase Negative (Negative) 03/24/23 02:12 Urine RBC 25-40 /hpf (0-2) H 03/24/23 02:12 Urine WBC None /hpf (0-5) 03/24/23 02:12 Ur Squamous Epith Cells 0-4 /hpf (0-5) H 03/24/23 02:12 Amorphous Sediment 2+ /hpf 03/24/23 02:12 Urine Bacteria 1+ /hpf (NONE) H 03/24/23 02:12 Urine Mucus 1+ /hpf 03/24/23 02:12 All radiology interpretation(s) finalized by discharge Discharge Plan Discharge Patient Disposition: Home Clinical Impression: Metastases to the liver, Abdominal pain, Hydronephrosis of left kidney Condition: Stable Prescriptions: No Action lubiprostone [Amitiza] 24 mcg capsule 24 mcg PO BID Qty: 60 2RF (DME) ostomy supplies See Rx Instructions .Route .MEDSUPPLY Qty: 1 10RF Rx Instructions: As directed hydrocortisone 2.5 % cream with perineal applicator 1 applic [place] DAILY PRN naloxone 4 mg/actuation spray,non-aerosol 4 mg intranasal Q2M PRN Rx Instructions: spray 1 dose into ONE nostril; alternate nostrils w each dose until help arrives simethicone [Gas Relief (simethicone)] 180 mg capsule 180 mg PO DAILY PRN (Reason: abdominal distention) Qty: 30 0RF ondansetron 4 mg tablet,disintegrating 4 mg PO Q6H Qty: 90 0RF sucralfate 1 gram tablet See Rx Instructions .ROUTE .COMPLEX Qty: 120 1RF Dose Instruction: TAKE 1 TABLET BY MOUTH TWICE DAILY FOR ACID REFLUX Rx Instructions: TAKE 1 TABLET BY MOUTH TWICE DAILY FOR ACID REFLUX (DME) colostomy bags See Rx Instructions .Route .MEDSUPPLY Qty: 30 3RF Rx Instructions: As directed lorazepam 1 mg tablet 0.5 - 1 mg PO Q8H PRN (Reason: severe anxiety) Qty: 30 3RF lactulose 20 gram/30 mL solution 20 g PO .COMPLEX MDD 180 ml Qty: 1200 0RF Rx Instructions: 20 grams orally 30 ml Q 2 hours until bowel movement.; metoclopramide HCl 10 mg tablet 10 mg PO BID PRN (Reason: nausea and vomiting) Qty: 60 1RF (DME) Home self urinary straight cath kid See Rx Instructions .Route .MEDSUPPLY Qty: 1 0RF Rx Instructions: As directed morphine concentrate 100 mg/5 mL (20 mg/mL) solution 20 mg PO Q2H PRN (Reason: pain) 30 Days Qty: 120 0RF Miralax 17 gram/dose Powder 4 g PO DAILY Discharge Orders: Discharge ED (Routine); Ordered 03/24/23 Ordered By: Nikko Higuera Referrals: Crescencio Sotomayor MD [Primary Care Provider] - 1 week Patient Instructions: Abdominal Pain (ED), Opioid Safety, Pain Management, Hydronephrosis (ED) Activity Restrictions/Additional Instructions: Your CT scan showed your mass may be abutting the ureter that carries your urine from your left kidney to your bladder and this is causing the urine to back up into your kidney. At the present time your kidney function is normal. You have chosen to go home and to see if this resolves or improves. If this does not it may cause increasing pain worsening kidney function nausea vomiting diarrhea fevers chills etc. If any of these start please return to the ER immediately as you may need transfer to see urology and possible stent placement. Otherwise continue your current pain medicine as directed. Coding Level of Care Code ED Histopathology Technician for Ondina aLu
[2023-03-24 00:46] LABS: Basophils % 0.4 %; Eosinophils # 0.1 10^3/uL (0.0-0.8); Eosinophils % 0.5 %; Hematocrit 31.7 % (37-53); Lymphocytes # 0.5 10^3/uL (0.8-4.8); Lymphocytes % 4.4 %; Mean Corpuscular HGB Conc 32.2 g/dL (30-55); Mean Corpuscular Hemoglobin 27.1 pg (27-33); Mean Corpuscular Volume 84.1 fl (82-101); Mean Platelet Volume 9.4 fL (7.4-10.4); Monocytes # 0.7 10^3/uL (0.2-0.9); Monocytes % 6.4 %; Neutrophils # 9.79 10^3/uL (1.8-7.7); Neutrophils % 87.8 %; Nucleated Red Blood Cells % 0 %; Platelet Count 318 10^3/cmm (157-399); Red Blood Count 3.77 10^6/uL (3.85-5.65); Red Cell Distribution Width 16.9 % (12.1-15.1); White Blood Count 11.15 10^3/uL (3.29-11.43)
[2023-03-24 01:06] LABS: Alanine Aminotransferase 27 U/L (0-41); Albumin Level 3.2 g/dL (3.5-5.2); Alkaline Phosphatase 768 U/L (40-130); Anion Gap 15.4 (5-19); Aspartate Amino Transferase 53 U/L (0-40); Blood Urea Nitrogen 12 mg/dL (8-23); Calcium 8.8 mg/dL (8.5-10.5); Carbon Dioxide 28 mmol/L (22-29); Chloride 97 mmol/L (98-107); Creatinine Clr Calc Pharmacy 105.1032; Globulin 2.9 g/dL (1.3-4.6); Glomerular Filtration Rate 136.1 mL/min (90-130); Glucose 120 mg/dL (65-115); Magnesium 2.1 mg/dL (1.7-2.3); Osmolality Calculated 285 mOsm/kg (285-295); Potassium 3.4 mmol/L (3.5-5.1); Sodium 137 mmol/L (136-145); Total Bilirubin 0.4 mg/dL (0.15-1.2); Total Protein 6.1 g/dL (6.6-8.7)
[2023-03-24 01:07] LABS: Lactic Sepsis W/Reflex 2.9 mmol/L (0.5-2.2)
--- NOTE | 2023-03-24 01:58 | CTR_ITS ---
PROCEDURE INFORMATION: Exam: CT Abdomen And Pelvis With Contrast Exam date and time: 03/24/2023 2:25 AM Age: 62 years old Clinical indication: Abdominal pain; Localized; Left lower quadrant (llq); Prior surgery; Surgery date: <1 month; Patient HX: Pain at site of stoma bag-put in March 01; Additional info: Intractable abd pain, known metastatic disease TECHNIQUE: Imaging protocol: Computed tomography of the abdomen and pelvis with contrast. Radiation optimization: All CT scans at this facility use at least one of these dose optimization techniques: automated exposure control; mA and/or kV adjustment per patient size (includes targeted exams where dose is matched to clinical indication); or iterative reconstruction. Contrast material: OMNI 350; Contrast volume: 100 ml; Contrast route: INTRAVENOUS (IV); COMPARISON: CT abdomen pelvis w con* [id number] 03/11/2023 8:32 PM RADIATION DOSE METRICS: Total DLP (mGy-cm): 410 FINDINGS: Liver: Large metastatic masses noted in the liver, no change. Gallbladder and bile ducts: No calcified stones. No ductal dilation. Pancreas: No ductal dilation. Spleen: Splenomegaly. Adrenal glands: Normal. No mass. Kidneys and ureters: Interval development of left hydronephrosis possibly due to sigmoid mass abutting the distal left ureter which is not well visualized. Stomach and bowel: Redemonstration of a large sigmoid colon mass similar to previous study. Appendix: No evidence of appendicitis. Intraperitoneal space: Abdominal ascites. Vasculature: No abdominal aortic aneurysm. Lymph nodes: Multiple lymph nodes again identified, similar to prior exam. Urinary bladder: Collapsed urinary bladder. Reproductive: Unremarkable as visualized. Bones/joints: Sclerotic focus noted in the left iliac bone, no change. Soft tissues: Anasarca. CT/CT abdomen pelvis w con* [id number] IMPRESSION: 1. Redemonstration of a large sigmoid colon mass similar to previous study. Enlarged adjacent lymph nodes again identified. No significant bowel dilation to suggest high-grade obstruction. 2. Large metastatic masses noted in the liver, no change. 3. Interval development of left hydronephrosis, new since prior study, possibly due to sigmoid mass abutting the distal left ureter which is not well visualized. No definite calcified stone. 4. Abdominal ascites. 5. Anasarca. COMMENTS: Consistent with the [employer]'s Incidental Findings Committee white paper (J Am Eva Radiol 2018): Any incidental renal lesion less than 1 cm or classified as too small to characterize, or any incidental cystic renal lesion characterized as simple-appearing, is likely benign. No follow-up imaging is recommended for these lesions per consensus recommendations based on imaging criteria.
[2023-03-24] MEDS: iohexol 350 mg/mL 500 mL Btl (per mL) IV (02:30)
[2023-03-24 02:34] LABS: Reflex Lactate Order REFLEX LACTIC ORDERD
[2023-03-24 02:57] LABS: Add Urine Microscopic? YES; Bilirubin Urine Neg (Negative); Blood Urine 3+ (Negative); Glucose Urine UA Norm (Normal); Ketones Urine Negative (Negative); Leukocyte Esterase Urine Negative (Negative); Nitrate Urine Negative (Negative); Protein Urine Trace (Negative); Urine Appearance SL Hazy (CLEAR); Urine Color Yellow (Yellow); Urobilinogen Urine Neg (Negative); pH Urine 7 (5-7)
[2023-03-24 02:58] LABS: Add Urine Culture? Yes; Amorphous Sediment Urine 2+ /hpf; Bacteria Urine 1+ /hpf; Mucus Urine 1+ /hpf; RBC Urine 25-40 /hpf (0-2); Squamous Epithelial Cell Urine 0-4 /hpf (0-5)
[2023-03-24 04:06] LABS: Lactic Acid level (Lactate) 2.6 mmol/L (0.5-2.2)
== END 2023-03-24 04:30 | disposition home or self-care (01) ==
PROVIDERS: Emergency Provider Emergency Medicine; PCP Family Medicine
DX: N13.30 Unspecified hydronephrosis (principal); C80.1 Malignant (primary) neoplasm, unspecified; C78.7 Secondary malignant neoplasm of liver and intrahepatic bile duct; F17.210 Nicotine dependence, cigarettes, uncomplicated; Z85.038 Personal history of other malignant neoplasm of large intestine
CPT/HCPCS: 36415; 74018; 74177; 80053; 81001; 83605; 83735; 85025; 87086; 96374; 96375; 99285; J1170; J2405; Q9967

== ENCOUNTER 2023-03-25 09:58 | Oncology outpatient (recurring) (ONCR) | payer MEDICAID, SELFPAY ==
--- NOTE | 2023-03-09 14:52 | N.ONRAD NP_ITS ---
Radiation Oncology New Patient Visit Patient: Kavitha Dunlap MR#: [id number] : 1960 Age: 62 Sex: Male Dictated by: Dr. Sabina Way Date of Service: 03/09/2023 Referring Physician(s) : Dr. Saunders Physician Diagnosis: Stage IV adenocarcinoma of the rectum/sigmoid Radiotherapy to date: Summary > No prior radiation therapy. Chief Complaint / History of Present Illness: Patient had had an injury where he fell off a ladder and then subsequently developed back pain. He had been managed for this back pain for at least a year and a half 2 years through the pain clinic. He continued to have progressive pain and eventually had a CT scan which showed not only the mass in his pelvis but extensive liver metastasis. He is already visited with a radiation oncologist at the [facility] and is here today to establish care and undergo simulation for palliative treatment to the pelvic mass. Current Medications: capecitabine Take 3 tabs in the am and 4 tabs in pm on days 1-14 of each 21 chemo cycle, celecoxib 200 mg PO BID, diazepam 2.5 mg PO Q8H PRN, gabapentin 300 mg PO TID, hydrocortisone 2.5% 1 applic LA DAILY PRN, hydromorphone 8 mg PO Q8H PRN, metoclopramide HCl 10 mg PO BID PRN, morphine ER 30 mg PO Q12H PRN, naloxone 4 mg/actuation 4 mg intranasal Q2M PRN, ondansetron 4 mg PO Q6H, pantoprazole (Protonix) 40 mg PO BID, polyethylene glycol 3350 (Miralax) 4 grams PO DAILY, sucralfate TAKE 1 TABLET BY MOUTH TWICE DAILY FOR ACID REFLUX Allergies: codeine Allergy -ADR-Itching Medical History: No history of collagen vascular disease. No previous radiation therapy. Adenocarcinoma of sigmoid colon, Metastases to the liver, Lumbar stenosis with neurogenic claudication, Constipation, Tobacco dependence Surgical History: Hx of shoulder surgery, Hx of knee surgery Family History: Father- Cancer, lung, Mother- Cancer colon, Denies family history of Liver disease Diabetes, AD (coronary artery disease), Aneurysm, Clotting disorder, Dementia, Depression, Hyperlipidemia, Hyperthyroidism, Hypothyroidism, Psychiatric illness, Chronic kidney disease (CKD), Anesthesia complication, Bleeding disorder, Lung disease, Hypertension, Stroke Social History: Smoking and tobacco/nicotine status: current every day tobacco/nicotine user cigarettes Packs smoked per day: 1 [ Other cigarette details: 40 year pack history] Alcohol intake: former Substance/Drug Use: former Date of last use: not currently, many moons before Lives independently: Yes Marital status: Number of children: 2 Current occupational status: disabled Special lacie needs: No Agree to transfusion: Yes Current Complaints / Review of Systems: . Vital Signs: Performed on 03/09/2023 2:37 PM BMI - 19.227 kg/m2, Height - 70 in, Weight - 134 lbs, Temperature - 97 f, Pulse - 75 /min, Respiration - 16 /min, O2 Sat - 97 %, Pain - 5, Fatigue - 0 and BP - 115/ 68 mm(hg). Physical Exam: General: Patient is in no apparent distress, accompanied today by his . He is quite cachectic in appearance. HEENT: Normocephalic atraumatic. Pupils are equal, sclera clear, extraocular muscles intact Pulmonary: Respiratory rate is regular nonlabored Cardiovascular: Regular rate and rhythm Abdomen: Patient has some tenderness where his colostomy was done last week. He is very cachectic and has no abdominal fat Extremities: No clubbing cyanosis or edema noted Skin: Warm and dry, no ecchymoses noted Neurological: Alert and oriented x 3. 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 We talked today about a 2-week course of treatment to try and get some pain control. I reviewed with him the simulation process. We talked about the daily treatment regiment. We discussed the risks and side effects both acute and long-term. At this point he is anxious to get started. He will undergo simulation today and will begin his 2-week course of treatment in the next few days. He will be finished with his treatment prior to his next appointment at the [facility] on March 30. Signed by: 03/09/2023 2:50:45 PM <<Signature on File>> Time spent with patient:30 CPT Code: CPT Code:
[2023-03-16 07:47] VITALS: BP 162/83; PULSE 77; RESP 16; TEMP 36.6; O2SAT 95; BMI 18.3
[2023-03-16 08:14] LABS: Basophils # 0.1 10^3/uL (0.0-0.1); Basophils % 0.5 %; Eosinophils % 0.4 %; Hematocrit 31.1 % (37-53); Lymphocytes # 0.6 10^3/uL (0.8-4.8); Mean Corpuscular HGB Conc 32.2 g/dL (30-55); Mean Corpuscular Hemoglobin 27.4 pg (27-33); Mean Corpuscular Volume 85.2 fl (82-101); Mean Platelet Volume 9.3 fL (7.4-10.4); Monocytes # 0.7 10^3/uL (0.2-0.9); Neutrophils # 7.91 10^3/uL (1.8-7.7); Neutrophils % 85.7 %; Nucleated Red Blood Cells % 0 %; Platelet Count 410 10^3/cmm (157-399); Red Blood Count 3.65 10^6/uL (3.85-5.65); Red Cell Distribution Width 17.9 % (12.1-15.1); White Blood Count 9.24 10^3/uL (3.29-11.43)
[2023-03-16 08:36] LABS: Alanine Aminotransferase 28 U/L (0-41); Albumin Level 3.3 g/dL (3.5-5.2); Alkaline Phosphatase 879 U/L (40-130); Aspartate Amino Transferase 54 U/L (0-40); Blood Urea Nitrogen 8 mg/dL (8-23); Calcium 8.9 mg/dL (8.5-10.5); Carbon Dioxide 30 mmol/L (22-29); Chloride 97 mmol/L (98-107); Glomerular Filtration Rate 167.9 mL/min (90-130); Glucose 123 mg/dL (65-115); Osmolality Calculated 282 mOsm/kg (285-295); Sodium 136 mmol/L (136-145); Total Bilirubin 0.4 mg/dL (0.15-1.2); Total Protein 6.3 g/dL (6.6-8.7)
[2023-03-16] MEDS: dextrose 5% 250 ML 75 ML IV (11:18)
[2023-03-16] MEDS: palonosetron 0.25 mg/5 mL SDV IVP (11:56)
[2023-03-16] MEDS: leucovorin 710 MG in dextrose 5% 250 ML 80.25 MG IV (12:11)
[2023-03-16] MEDS: fluorouraciL 4,250 MG, elastomeric pump 1 PUMP in sodium chloride 0.9% (100 ml) 7 ML IV (14:52)
[2023-03-16 15:00] VITALS: BP 155/84; PULSE 69; RESP 17; TEMP 36.3; O2SAT 96
[2023-03-18 14:11] VITALS: BP 150/79; PULSE 86; RESP 18; O2SAT 96
== END 2023-03-31 23:59 | disposition home or self-care (01) ==
PROVIDERS: Nurse Practitioner Family; PCP Family Medicine; Visit Provider Internal Medicine Medical Oncology
DX: C18.7 Malignant neoplasm of sigmoid colon (principal); F17.210 Nicotine dependence, cigarettes, uncomplicated; C77.2 Secondary and unspecified malignant neoplasm of intra-abdominal lymph nodes; C78.7 Secondary malignant neoplasm of liver and intrahepatic bile duct; Z79.899 Other long term (current) drug therapy
CPT/HCPCS: 77290; 77295; 77300; 77334; 77387; 77412; 80053; 85025; 96365; 96366; 96367; 96375; 96413; 96415; 96416; 96523; 99205; 99214; J0640; J1100; J1642; J2469; J7060; J9190; J9263

== ENCOUNTER 2023-04-23 11:30 | Oncology outpatient (recurring) (ONCR) | payer SELFPAY ==
[2023-04-07 08:01] LABS: Basophils # 0.1 10^3/uL (0.0-0.1); Basophils % 0.7 %; Eosinophils # 0.1 10^3/uL (0.0-0.8); Eosinophils % 0.7 %; Hematocrit 32.7 % (37-53); Lymphocytes # 0.9 10^3/uL (0.8-4.8); Lymphocytes % 9.7 %; Mean Corpuscular HGB Conc 32.4 g/dL (30-55); Mean Corpuscular Volume 83.4 fl (82-101); Mean Platelet Volume 9.5 fL (7.4-10.4); Monocytes # 0.8 10^3/uL (0.2-0.9); Monocytes % 9.2 %; Neutrophils # 7.15 10^3/uL (1.8-7.7); Neutrophils % 79.4 %; Nucleated Red Blood Cells % 0 %; Platelet Count 345 10^3/cmm (157-399); Red Blood Count 3.92 10^6/uL (3.85-5.65); Red Cell Distribution Width 16.5 % (12.1-15.1)
[2023-04-07 08:25] LABS: Alanine Aminotransferase 37 U/L (0-41); Albumin Level 3.1 g/dL (3.5-5.2); Alkaline Phosphatase 778 U/L (40-130); Anion Gap 11.7 (5-19); Aspartate Amino Transferase 46 U/L (0-40); Blood Urea Nitrogen 6 mg/dL (8-23); Calcium 8.4 mg/dL (8.5-10.5); Carbon Dioxide 29 mmol/L (22-29); Chloride 95 mmol/L (98-107); Globulin 2.7 g/dL (1.3-4.6); Glomerular Filtration Rate 217.3 mL/min (90-130); Glucose 112 mg/dL (65-115); Osmolality Calculated 272 mOsm/kg (285-295); Potassium 3.7 mmol/L (3.5-5.1); Sodium 132 mmol/L (136-145); Total Bilirubin 0.4 mg/dL (0.15-1.2); Total Protein 5.8 g/dL (6.6-8.7)
[2023-04-07] MEDS: dextrose 5% 250 ML 75 ML IV (09:55)
[2023-04-07] MEDS: palonosetron 0.25 mg/5 mL SDV IVP (09:56)
[2023-04-07] MEDS: leucovorin 710 MG in dextrose 5% 250 ML 62.5 MG IV (10:48)
[2023-04-07] MEDS: fluorouraciL 4,250 MG, elastomeric pump 1 PUMP in sodium chloride 0.9% (100 ml) 7 ML IV (13:19)
[2023-04-07 13:25] VITALS: BP 157/89; PULSE 84; RESP 17; TEMP 36.2; O2SAT 94
[2023-04-09 11:01] VITALS: BP 147/83; PULSE 96; RESP 16; TEMP 36.8; O2SAT 96
[2023-04-21 08:12] LABS: Basophils # 0.1 10^3/uL (0.0-0.1); Basophils % 0.5 %; Eosinophils # 0.1 10^3/uL (0.0-0.8); Eosinophils % 0.6 %; Hematocrit 30.2 % (37-53); Lymphocytes # 0.8 10^3/uL (0.8-4.8); Lymphocytes % 8.3 %; Mean Corpuscular HGB Conc 32.5 g/dL (30-55); Mean Corpuscular Volume 86.3 fl (82-101); Mean Platelet Volume 9.3 fL (7.4-10.4); Monocytes # 0.6 10^3/uL (0.2-0.9); Monocytes % 6.5 %; Neutrophils # 7.84 10^3/uL (1.8-7.7); Neutrophils % 83.7 %; Nucleated Red Blood Cells % 0 %; Platelet Count 254 10^3/cmm (157-399); Red Cell Distribution Width 17.3 % (12.1-15.1); White Blood Count 9.38 10^3/uL (3.29-11.43)
[2023-04-21 08:49] LABS: Alanine Aminotransferase 31 U/L (0-41); Albumin Level 2.9 g/dL (3.5-5.2); Alkaline Phosphatase 714 U/L (40-130); Anion Gap 12.9 (5-19); Aspartate Amino Transferase 46 U/L (0-40); Blood Urea Nitrogen 9 mg/dL (8-23); Carbon Dioxide 29 mmol/L (22-29); Chloride 98 mmol/L (98-107); Globulin 2.6 g/dL (1.3-4.6); Glomerular Filtration Rate 217.3 mL/min (90-130); Glucose 101 mg/dL (65-115); Osmolality Calculated 281 mOsm/kg (285-295); Potassium 3.9 mmol/L (3.5-5.1); Sodium 136 mmol/L (136-145); Total Bilirubin 0.3 mg/dL (0.15-1.2); Total Protein 5.5 g/dL (6.6-8.7)
[2023-04-21] MEDS: palonosetron 0.25 mg/5 mL SDV IVP (09:54)
[2023-04-21] MEDS: dextrose 5% 250 ML 75 ML IV (09:54)
[2023-04-21] MEDS: leucovorin 710 MG in dextrose 5% 250 ML 62.5 MG IV (10:36)
[2023-04-21] MEDS: fluorouraciL 4,250 MG, elastomeric pump 1 PUMP in sodium chloride 0.9% (100 ml) 7 ML IV (13:04)
[2023-04-21 13:06] VITALS: BP 149/86; PULSE 77; TEMP 36.8; O2SAT 95
[2023-04-23 11:31] VITALS: BP 139/82; PULSE 83; RESP 16; TEMP 36.6; O2SAT 98
== END 2023-04-29 23:59 | disposition home or self-care (01) ==
PROVIDERS: Nurse Practitioner Family; PCP Family Medicine; Visit Provider Internal Medicine Medical Oncology
DX: Z53.9 Procedure and treatment not carried out, unspecified reason; Z45.1 Encounter for adjustment and management of infusion pump
CPT/HCPCS: 80053; 82378; 85025; 96365; 96366; 96367; 96368; 96375; 96413; 96415; 96416; 96523; J0640; J1100; J1642; J2469; J7060; J9190; J9263

== ENCOUNTER → 2023-05-05 08:06 | Outpatient (BNVA) | payer MEDICARE, SELFPAY | PROVIDERS: PCP Family Medicine; Visit Provider Internal Medicine Medical Oncology | DX: C18.7 Malignant neoplasm of sigmoid colon (principal); C77.2 Secondary and unspecified malignant neoplasm of intra-abdominal lymph nodes; C78.7 Secondary malignant neoplasm of liver and intrahepatic bile duct; Z95.828 Presence of other vascular implants and grafts; Z79.899 Other long term (current) drug therapy; F17.210 Nicotine dependence, cigarettes, uncomplicated; Z92.3 Personal history of irradiation; Z93.3 Colostomy status | CPT/HCPCS: 99214 ==

== ENCOUNTER 2023-05-21 08:31 | Oncology outpatient (recurring) (ONCR) | payer SELFPAY ==
[2023-05-05 08:35] LABS: Basophils # 0.1 10^3/uL (0.0-0.1); Basophils % 0.8 %; Eosinophils # 0.1 10^3/uL (0.0-0.8); Eosinophils % 0.8 %; Hematocrit 27.9 % (37-53); Lymphocytes # 0.8 10^3/uL (0.8-4.8); Lymphocytes % 9.8 %; Mean Corpuscular HGB Conc 32.3 g/dL (30-55); Mean Corpuscular Hemoglobin 28.8 pg (27-33); Mean Corpuscular Volume 89.4 fl (82-101); Mean Platelet Volume 9.7 fL (7.4-10.4); Monocytes # 0.8 10^3/uL (0.2-0.9); Neutrophils # 6.69 10^3/uL (1.8-7.7); Neutrophils % 79.4 %; Nucleated Red Blood Cells % 0 %; Platelet Count 228 10^3/cmm (157-399); Red Blood Count 3.12 10^6/uL (3.85-5.65); Red Cell Distribution Width 19.4 % (12.1-15.1); White Blood Count 8.44 10^3/uL (3.29-11.43)
[2023-05-05 08:58] LABS: Alanine Aminotransferase 22 U/L (0-41); Alkaline Phosphatase 573 U/L (40-130); Anion Gap 12.1 (5-19); Aspartate Amino Transferase 28 U/L (0-40); Blood Urea Nitrogen 6 mg/dL (8-23); Carbon Dioxide 28 mmol/L (22-29); Chloride 102 mmol/L (98-107); Globulin 2.5 g/dL (1.3-4.6); Glomerular Filtration Rate 217.3 mL/min (90-130); Glucose 87 mg/dL (65-115); Osmolality Calculated 283 mOsm/kg (285-295); Potassium 4.1 mmol/L (3.5-5.1); Sodium 138 mmol/L (136-145); Total Bilirubin 0.4 mg/dL (0.15-1.2); Total Protein 5.5 g/dL (6.6-8.7)
[2023-05-05 10:15] LABS: Carcinoembryonic Antigen 390.5 ng/mL (0.0-4.7)
[2023-05-05] MEDS: dextrose 5% 250 ML 75 ML IV (10:27)
[2023-05-05] MEDS: palonosetron 0.25 mg/5 mL SDV IVP (10:27)
[2023-05-05] MEDS: leucovorin 710 MG in dextrose 5% 250 ML 62.5 MG IV (11:04)
[2023-05-05] MEDS: fluorouraciL 4,250 MG, elastomeric pump 1 PUMP in sodium chloride 0.9% (100 ml) 7 ML IV (13:14)
[2023-05-05 13:19] VITALS: BP 154/88; PULSE 70; TEMP 36.4; O2SAT 100
[2023-05-19 08:12] LABS: Basophils # 0.1 10^3/uL (0.0-0.1); Basophils % 0.7 %; Eosinophils # 0.1 10^3/uL (0.0-0.8); Eosinophils % 0.7 %; Lymphocytes # 0.8 10^3/uL (0.8-4.8); Mean Corpuscular HGB Conc 32.1 g/dL (30-55); Mean Corpuscular Hemoglobin 29.4 pg (27-33); Mean Corpuscular Volume 91.8 fl (82-101); Mean Platelet Volume 9.5 fL (7.4-10.4); Monocytes # 0.7 10^3/uL (0.2-0.9); Monocytes % 8.5 %; Neutrophils # 6.58 10^3/uL (1.8-7.7); Neutrophils % 79.7 %; Nucleated Red Blood Cells % 0 %; Platelet Count 251 10^3/cmm (157-399); Red Blood Count 3.16 10^6/uL (3.85-5.65); Red Cell Distribution Width 19.7 % (12.1-15.1); White Blood Count 8.26 10^3/uL (3.29-11.43)
[2023-05-19 08:29] LABS: Alanine Aminotransferase 12 U/L (0-41); Albumin Level 3.1 g/dL (3.5-5.2); Alkaline Phosphatase 418 U/L (40-130); Anion Gap 12.8 (5-19); Aspartate Amino Transferase 24 U/L (0-40); Blood Urea Nitrogen 7 mg/dL (8-23); Calcium 8.3 mg/dL (8.5-10.5); Carbon Dioxide 26 mmol/L (22-29); Chloride 102 mmol/L (98-107); Globulin 2.6 g/dL (1.3-4.6); Glomerular Filtration Rate 167.9 mL/min (90-130); Glucose 98 mg/dL (65-115); Osmolality Calculated 282 mOsm/kg (285-295); Potassium 3.8 mmol/L (3.5-5.1); Sodium 137 mmol/L (136-145); Total Bilirubin 0.4 mg/dL (0.15-1.2); Total Protein 5.7 g/dL (6.6-8.7)
[2023-05-19 09:06] LABS: Creatinine Clr Calc Pharmacy 126.1239
[2023-05-19] MEDS: palonosetron 0.25 mg/5 mL SDV IVP (09:46)
[2023-05-19] MEDS: sodium chloride 0.9% 250 ML 75 ML IV (09:46)
[2023-05-19 10:12] LABS: T3 Free 1.6 PG/ML (2.0-4.4); Thyroid Stimulating Hormone 1.05 uIU/mL (0.27-4.20)
[2023-05-19] MEDS: SODIUM CHLORIDE 0.9% IV (10:37)
[2023-05-19] MEDS: BEVACIZUMAB AWWB IV (10:37)
[2023-05-19] MEDS: dextrose 5% 250 ML 75 ML IV (12:19)
[2023-05-19] MEDS: leucovorin 690 MG in dextrose 5% 250 ML 150 MG IV (12:21)
[2023-05-19] MEDS: fluorouraciL 4,150 MG, elastomeric pump 1 PUMP in sodium chloride 0.9% (100 ml) 9 ML IV (14:38)
[2023-05-19 16:56] VITALS: BP 165/85; PULSE 79; RESP 16; TEMP 36.7; O2SAT 97
== END 2023-05-30 23:59 | disposition home or self-care (01) ==
PROVIDERS: Nurse Practitioner Family; PCP Family Medicine; Visit Provider Internal Medicine Medical Oncology
DX: Z53.9 Procedure and treatment not carried out, unspecified reason (principal); Z45.1 Encounter for adjustment and management of infusion pump
CPT/HCPCS: 80053; 82378; 84443; 84481; 85025; 96365; 96366; 96367; 96368; 96375; 96413; 96415; 96416; 96417; 96523; J0640; J1100; J1642; J2469; J7050; J7060; J9190; J9263; Q5107

== ENCOUNTER 2023-06-21 07:30 | Oncology outpatient (recurring) (ONCR) | payer MEDICARE, SELFPAY ==
[2023-06-02 08:08] LABS: Basophils # 0.1 10^3/uL (0.0-0.1); Basophils % 0.7 %; Eosinophils # 0.1 10^3/uL (0.0-0.8); Eosinophils % 0.7 %; Hematocrit 31.2 % (37-53); Lymphocytes # 0.9 10^3/uL (0.8-4.8); Lymphocytes % 9.6 %; Mean Corpuscular HGB Conc 32.1 g/dL (30-55); Mean Corpuscular Hemoglobin 29.9 pg (27-33); Mean Corpuscular Volume 93.4 fl (82-101); Mean Platelet Volume 9.5 fL (7.4-10.4); Monocytes # 0.7 10^3/uL (0.2-0.9); Monocytes % 7.6 %; Neutrophils # 7.13 10^3/uL (1.8-7.7); Neutrophils % 80.9 %; Nucleated Red Blood Cells % 0 %; Platelet Count 271 10^3/cmm (157-399); Red Blood Count 3.34 10^6/uL (3.85-5.65); Red Cell Distribution Width 18.5 % (12.1-15.1); White Blood Count 8.81 10^3/uL (3.29-11.43)
[2023-06-02 08:37] LABS: Carcinoembryonic Antigen 269.8 ng/mL (0.0-4.7)
[2023-06-02 08:48] LABS: Alanine Aminotransferase 11 U/L (0-41); Albumin Level 3.1 g/dL (3.5-5.2); Alkaline Phosphatase 295 U/L (40-130); Anion Gap 12.7 (5-19); Aspartate Amino Transferase 22 U/L (0-40); Blood Urea Nitrogen 7 mg/dL (8-23); Calcium 8.2 mg/dL (8.5-10.5); Carbon Dioxide 26 mmol/L (22-29); Chloride 101 mmol/L (98-107); Globulin 2.9 g/dL (1.3-4.6); Glomerular Filtration Rate 217.3 mL/min (90-130); Glucose 99 mg/dL (65-115); Osmolality Calculated 280 mOsm/kg (285-295); Potassium 3.7 mmol/L (3.5-5.1); Sodium 136 mmol/L (136-145); Total Bilirubin 0.4 mg/dL (0.15-1.2)
[2023-06-02 08:54] LABS: Creatinine Clr Calc Pharmacy 183.0771
[2023-06-02] MEDS: sodium chloride 0.9% 250 ML 75 ML IV (09:38)
[2023-06-02] MEDS: palonosetron 0.25 mg/5 mL SDV IVP (09:39)
[2023-06-02] MEDS: BEVACIZUMAB AWWB IV (10:22)
[2023-06-02] MEDS: SODIUM CHLORIDE 0.9% IV (10:22)
[2023-06-02] MEDS: dextrose 5% 250 ML 75 ML IV (11:40)
[2023-06-02] MEDS: leucovorin 710 MG in dextrose 5% 250 ML 62.5 MG IV (11:40)
[2023-06-02] MEDS: fluorouraciL 4,250 MG, elastomeric pump 1 PUMP in sodium chloride 0.9% (100 ml) 7 ML IV (13:50)
[2023-06-02 14:00] VITALS: BP 184/95; PULSE 74; RESP 16; TEMP 36.7; O2SAT 96
[2023-06-04 08:30] VITALS: BP 156/88; PULSE 75; RESP 16; TEMP 36.8; O2SAT 97
[2023-06-15] MEDS: iohexol 350 mg/mL 500 mL Btl (per mL) PO (15:45)
--- NOTE | 2023-06-15 16:45 | CTR_ITS ---
PROCEDURE INFORMATION: Exam: CT Chest With Contrast; Diagnostic Exam date and time: 06/15/2023 4:42 PM Age: 62 years old Clinical indication: Condition or disease; Other: Colon cancer TECHNIQUE: Imaging protocol: Diagnostic computed tomography of the chest with contrast. Radiation optimization: All CT scans at this facility use at least one of these dose optimization techniques: automated exposure control; mA and/or kV adjustment per patient size (includes targeted exams where dose is matched to clinical indication); or iterative reconstruction. Contrast material: OMNI 350; Contrast volume: 100 ml; Contrast route: INTRAVENOUS (IV); COMPARISON: CT angio chest w abd pel w con 07/25/2021 2:15 AM RADIATION DOSE METRICS: Total DLP (mGy-cm): 575.83 FINDINGS: Thyroid: A 1.2 cm left thyroid nodule is present which does not require follow-up. Trachea: Imaged portions of the distal trachea, as well as right and left mainstem bronchi are patent. Lungs: Minimal densities consistent with atelectasis or scarring demonstrated in the right lower lobe. Stable minimal right apical density most suggestive of scarring. Pleural spaces: No pleural effusion. Heart: Heart size stable. No pericardial effusion. Coronary arteries: Coronary artery atherosclerotic calcification. Esophagus: Reflux of oral contrast into the esophagus. Mild diffuse esophageal wall thickening suggesting reflux esophagitis. Lymph nodes: A 7 mm node is present immediately anterior to the proximal right mainstem bronchus, stable from 07/25/2021. No pathologically enlarged mediastinal or hilar lymph nodes are identified. Vasculature: The thoracic aorta is not enlarged. Bones/joints: Skeletal windows demonstrate no acute appearing osseous abnormality. Soft tissues: Generalized body wall edema. COMMENTS: Consistent with the [employer]'s Incidental Findings Committee white paper (J Am Eva Radiol 2015): In patients aged 35 years and older with an incidental thyroid nodule equal to or greater than 1.[address], MRI or extrathyroidal US, further evaluation with dedicated thyroid US is recommended for patients with normal life expectancy and without comorbidities. For smaller nodules without suspicious features, no further evaluation or follow up is recommended. PROCEDURE INFORMATION: Exam: CT Abdomen And Pelvis With Contrast Exam date and time: 06/15/2023 4:42 PM Age: 62 years old Clinical indication: Condition or disease; Other: Colon cancer TECHNIQUE: Imaging protocol: Computed tomography of the abdomen and pelvis with contrast. Radiation optimization: All CT scans at this facility use at least one of these dose optimization techniques: automated exposure control; mA and/or kV adjustment per patient size (includes targeted exams where dose is matched to clinical indication); or iterative reconstruction. Contrast material: OMNI 350; Contrast volume: 100 ml; Contrast route: INTRAVENOUS (IV); COMPARISON: CT abdomen pelvis w con* [id number] 03/24/2023 2:25 AM RADIATION DOSE METRICS: Total DLP (mGy-cm): 575.83 FINDINGS: Liver: Multiple large masses are demonstrated within the liver. One within the left lobe on series 5, image 26 currently measures 8.7 x 10.2 cm, as compared with 9.2 x 10.9 cm previously. A mass laterally within the right hepatic lobe measuring 6.9 x 5.6 cm on current series 5, image 27, has diminished more substantially, previously measuring 13.3 x 8.0 cm. Another mass within the posterior segment currently measuring 6.1 x 6.5 cm on current series 5, image 19, measured 6.2 x 6.0 cm previously. There is intrahepatic ductal dilatation within the lateral segment of the liver unchanged. Gallbladder and bile ducts: Gallbladder is unremarkable. There is no extrahepatic biliary ductal dilatation identified. Stable dilatation of a bile duct in the lateral segment of the liver. Pancreas: Unremarkable. Spleen: Spleen size is stable. There is a 0.3 cm low-density on series 5, image 15, too small to fully characterize, and unchanged. Adrenal glands: Not enlarged. Kidneys and ureters: No hydronephrosis of either kidney. Renovascular calcification is present bilaterally. Small left renal hypodensity, too small to fully characterize but statistically most likely a small cyst. Stomach and bowel: No bowel obstruction evident. A left lower quadrant colostomy is present. Multilobulated heterogeneous pelvic mass. This measures 7.6 x 6.2 cm (series 5, image 73) as compared with 8.5 x 7.3 cm . Appendix: No acute inflammatory change of the appendix identified. Intraperitoneal space: There is a large volume of ascites present stable to slightly increased from previous. Vasculature: atherosclerotic vascular calcification demonstrated. There is stable infrarenal abdominal aortic ectasia at 2.7 cm diameter. Lymph nodes: A periportal lymph node currently measuring 4.3 x 2.3 cm (series 5, image 27) as compared with 4.1 x 2.5 cm previously, not thought significantly changed. Previously enlarged perirectal nodes, 1 such node on the right measuring 2.8 x 2.1 cm (series 5, image 82) as compared with 2.9 x 2.5 cm previously. Urinary bladder: Unremarkable as visualized. Reproductive: Small volume bilateral hydrocele. Bones/joints: Stable small sclerotic focus within the medial left iliac bone possibly a bone island.. No aggressive appearing osseous lesions are evident. Soft tissues: Generalized body wall edema. CT/CT chest abdpel w/*[id number] IMPRESSION: 1. No specific evidence of metastatic disease within the chest. 2. Findings suggesting reflux esophagitis. IMPRESSION: 1. Large volume hepatic metastases. Overall there is a trend towards decrease in size of these masses. 2. Bulky pelvic mass and perirectal adenopathy, overall with some interval decrease in size.. 3. Periportal adenopathy without significant interval change. 4. Large volume of ascites, stable to slightly increased. COMMENTS: Consistent with the [employer]'s Incidental Findings Committee white paper (J Am Eva Radiol 2018): Any incidental renal lesion less than 1 cm or classified as too small to characterize, or any incidental cystic renal lesion characterized as simple-appearing, is likely benign. No follow-up imaging is recommended for these lesions per consensus recommendations based on imaging criteria.
[2023-06-15] MEDS: iohexol 350 mg/mL 500 mL Btl (per mL) IV (17:19)
[2023-06-16 08:27] LABS: Basophils # 0.1 10^3/uL (0.0-0.1); Basophils % 0.6 %; Eosinophils # 0.1 10^3/uL (0.0-0.8); Eosinophils % 1.5 %; Hematocrit 30.9 % (37-53); Lymphocytes # 0.7 10^3/uL (0.8-4.8); Lymphocytes % 7.7 %; Mean Corpuscular HGB Conc 31.7 g/dL (30-55); Mean Corpuscular Hemoglobin 29.8 pg (27-33); Mean Corpuscular Volume 93.9 fl (82-101); Monocytes # 0.8 10^3/uL (0.2-0.9); Monocytes % 8.4 %; Neutrophils # 7.26 10^3/uL (1.8-7.7); Neutrophils % 81.5 %; Nucleated Red Blood Cells % 0 %; Platelet Count 210 10^3/cmm (157-399); Red Blood Count 3.29 10^6/uL (3.85-5.65); White Blood Count 8.91 10^3/uL (3.29-11.43)
[2023-06-16 08:47] LABS: Alanine Aminotransferase 13 U/L (0-41); Albumin Level 3.2 g/dL (3.5-5.2); Alkaline Phosphatase 290 U/L (40-130); Anion Gap 15.2 (5-19); Aspartate Amino Transferase 31 U/L (0-40); Blood Urea Nitrogen 10 mg/dL (8-23); Carbon Dioxide 26 mmol/L (22-29); Chloride 102 mmol/L (98-107); Creatinine Clr Calc Pharmacy 146.4617; Glomerular Filtration Rate 167.9 mL/min (90-130); Glucose 106 mg/dL (65-115); Osmolality Calculated 287 mOsm/kg (285-295); Potassium 4.2 mmol/L (3.5-5.1); Sodium 139 mmol/L (136-145); Total Bilirubin 0.4 mg/dL (0.15-1.2); Total Protein 6.2 g/dL (6.6-8.7)
[2023-06-16 09:09] LABS: Calcium 8.3 mg/dL (8.5-10.5)
[2023-06-16 11:20] LABS: Ferritin 281 ng/mL (30-400); Iron 38 ug/dL (59-158); Percent Saturation 24.2 % (20-50); Total Iron Binding Capacity 157 mcg/dl; Unsaturated Iron Binding 119 ug/dL (112-347)
[2023-06-16 11:36] LABS: Vitamin B12 398 pg/mL (232-1245)
[2023-06-16 11:59] LABS: Folate Level > 20.0 ng/mL (4.5-32.2)
[2023-06-21 05:09] LABS: Methylmalonic Acid 157 nmol/L (87-318)
[2023-06-21 07:58] LABS: Basophils # 0.1 10^3/uL (0.0-0.1); Basophils % 0.8 %; Eosinophils # 0.1 10^3/uL (0.0-0.8); Eosinophils % 1.6 %; Lymphocytes # 0.8 10^3/uL (0.8-4.8); Lymphocytes % 10.7 %; Mean Corpuscular HGB Conc 31.9 g/dL (30-55); Mean Corpuscular Hemoglobin 30.4 pg (27-33); Mean Corpuscular Volume 95.1 fl (82-101); Mean Platelet Volume 9.8 fL (7.4-10.4); Neutrophils # 5.43 10^3/uL (1.8-7.7); Neutrophils % 73.5 %; Nucleated Red Blood Cells % 0 %; Platelet Count 282 10^3/cmm (157-399); Red Blood Count 3.26 10^6/uL (3.85-5.65); Red Cell Distribution Width 17.9 % (12.1-15.1); White Blood Count 7.39 10^3/uL (3.29-11.43)
[2023-06-21 08:00] LABS: Add Urine Culture? No; Bacteria Urine TRACE /hpf; Bilirubin Urine Neg (Negative); Blood Urine Neg (Negative); Glucose Urine UA Norm (Normal); Ketones Urine Negative (Negative); Leukocyte Esterase Urine Negative (Negative); Nitrate Urine Negative (Negative); Protein Urine Neg (Negative); Specific Gravity, Urine 1.015 (1.005-1.030); Urine Appearance Clear (CLEAR); Urine Color Yellow (Yellow); Urobilinogen Urine Norm (Negative); pH Urine 6 (5-7)
[2023-06-21 08:18] LABS: Alanine Aminotransferase 10 U/L (0-41); Albumin Level 3.2 g/dL (3.5-5.2); Alkaline Phosphatase 274 U/L (40-130); Aspartate Amino Transferase 27 U/L (0-40); Blood Urea Nitrogen 8 mg/dL (8-23); Calcium 8.6 mg/dL (8.5-10.5); Carbon Dioxide 26 mmol/L (22-29); Chloride 101 mmol/L (98-107); Globulin 3.5 g/dL (1.3-4.6); Glomerular Filtration Rate 217.3 mL/min (90-130); Glucose 113 mg/dL (65-115); Osmolality Calculated 283 mOsm/kg (285-295); Sodium 137 mmol/L (136-145); Total Bilirubin 0.4 mg/dL (0.15-1.2); Total Protein 6.7 g/dL (6.6-8.7)
[2023-06-21] MEDS: sodium chloride 0.9% 250 ML 75 ML IV (10:22)
[2023-06-21] MEDS: palonosetron 0.25 mg/5 mL SDV IVP (10:22)
[2023-06-21] MEDS: BEVACIZUMAB AWWB IV (10:56)
[2023-06-21] MEDS: SODIUM CHLORIDE 0.9% IV (10:56)
[2023-06-21] MEDS: dextrose 5% 250 ML 75 ML IV (11:35)
[2023-06-21] MEDS: leucovorin 690 MG in dextrose 5% 250 ML 62.5 MG IV (11:36)
[2023-06-21] MEDS: fluorouraciL 4,150 MG, elastomeric pump 1 PUMP in sodium chloride 0.9% (100 ml) 9 ML IV (13:48)
[2023-06-21 13:50] VITALS: BP 165/94; PULSE 76; RESP 16; TEMP 36.7; O2SAT 94
[2023-06-22 13:24] LABS: Soluble Transferrin Receptor 1.92 mg/L (0.76-1.76)
== END 2023-06-21 23:59 | disposition home or self-care (01) ==
PROVIDERS: Internal Medicine; PCP Family Medicine; Visit Provider Internal Medicine Medical Oncology
DX: Z51.11 Encounter for antineoplastic chemotherapy (principal); Z53.9 Procedure and treatment not carried out, unspecified reason; C78.7 Secondary malignant neoplasm of liver and intrahepatic bile duct; C18.7 Malignant neoplasm of sigmoid colon; Z79.899 Other long term (current) drug therapy; Z51.12 Encounter for antineoplastic immunotherapy; Z79.52 Long term (current) use of systemic steroids
CPT/HCPCS: 71260; 74177; 80053; 81001; 82378; 82607; 82728; 82746; 83540; 83550; 83921; 84238; 85025; 96365; 96366; 96367; 96368; 96375; 96413; 96415; 96416; 96417; 96523; 99215; J0640; J1100; J2469; J7050; J7060; J9190; J9263; Q5107; Q9967

== ENCOUNTER 2023-06-23 08:54 | Oncology outpatient (recurring) (ONCR) | payer MEDICARE, SELFPAY ==
[2023-06-23 09:04] VITALS: BP 165/93; PULSE 82; RESP 16; O2SAT 95
== END 2023-06-29 23:59 | disposition home or self-care (01) ==
LOC: ONCMED 08:55
PROVIDERS: PCP Family Medicine; Visit Provider Internal Medicine Medical Oncology
DX: Z45.1 Encounter for adjustment and management of infusion pump
CPT/HCPCS: 96523

== ENCOUNTER 2023-07-15 10:55 | Day surgery (SDC) | payer MEDICARE, SELFPAY ==
--- NOTE | 2023-07-15 11:14 | US_ITS ---
WS: [id number] Abdominal ultrasound, limited. History: Evaluate for ascites. Comparison: None. All 4 quadrants are imaged by ultrasound to evaluate for ascites. Very small amount of fluid in all 4 quadrants of the abdomen. Insufficient for paracentesis. US/US abdomen lmt fluid [id number] IMPRESSION: Insufficient ascites for paracentesis.
[2023-07-15 11:34] VITALS: BP 132/87; PULSE 68; RESP 18; TEMP 36.9; O2SAT 98; BMI 18.6
--- NOTE | 2023-07-15 12:07 | PC.NURSE ---
Procedure not performed, not enough fluid per radiology and Dr. Turner.
== END 2023-07-15 12:00 | disposition home or self-care (01) ==
PROVIDERS: Radiology Diagnostic Radiology; PCP Family Medicine; Visit Provider Nurse Practitioner Family
PROC: (CPT 49082; principal; 2023-07-15 12:00)
DX: R18.8 Other ascites (principal)
CPT/HCPCS: 49083; 76705

== ENCOUNTER 2023-07-29 08:54 | Oncology outpatient (recurring) (ONCR) | payer MEDICARE, SELFPAY ==
[2023-07-05 07:57] LABS: Basophils # 0.1 10^3/uL (0.0-0.1); Basophils % 0.6 %; Eosinophils # 0.2 10^3/uL (0.0-0.8); Eosinophils % 1.6 %; Hematocrit 31.5 % (37-53); Lymphocytes # 0.7 10^3/uL (0.8-4.8); Lymphocytes % 6.3 %; Mean Corpuscular HGB Conc 32.4 g/dL (30-55); Mean Corpuscular Hemoglobin 30.8 pg (27-33); Mean Corpuscular Volume 95.2 fl (82-101); Mean Platelet Volume 10.3 fL (7.4-10.4); Monocytes % 8.8 %; Neutrophils # 8.95 10^3/uL (1.8-7.7); Neutrophils % 82.3 %; Nucleated Red Blood Cells % 0 %; Platelet Count 235 10^3/cmm (157-399); Red Blood Count 3.31 10^6/uL (3.85-5.65); Red Cell Distribution Width 16.7 % (12.1-15.1); White Blood Count 10.87 10^3/uL (3.29-11.43)
[2023-07-05 08:09] LABS: Carcinoembryonic Antigen 274.1 ng/mL (0.0-4.7)
[2023-07-05 08:20] LABS: Alanine Aminotransferase 15 U/L (0-41); Albumin Level 3.1 g/dL (3.5-5.2); Alkaline Phosphatase 336 U/L (40-130); Aspartate Amino Transferase 32 U/L (0-40); Blood Urea Nitrogen 9 mg/dL (8-23); Calcium 8.3 mg/dL (8.5-10.5); Carbon Dioxide 26 mmol/L (22-29); Chloride 101 mmol/L (98-107); Globulin 3.5 g/dL (1.3-4.6); Glomerular Filtration Rate 217.3 mL/min (90-130); Glucose 100 mg/dL (65-115); Osmolality Calculated 281 mOsm/kg (285-295); Sodium 136 mmol/L (136-145); Total Bilirubin 0.3 mg/dL (0.15-1.2); Total Protein 6.6 g/dL (6.6-8.7)
[2023-07-05] MEDS: sodium chloride 0.9% 250 ML 75 ML IV (10:05)
[2023-07-05] MEDS: palonosetron 0.25 mg/5 mL SDV IVP (10:06)
[2023-07-05] MEDS: BEVACIZUMAB AWWB IV (10:52)
[2023-07-05] MEDS: SODIUM CHLORIDE 0.9% IV (10:52)
[2023-07-05] MEDS: dextrose 5% 250 ML 75 ML IV (11:26)
[2023-07-05] MEDS: leucovorin 690 MG in dextrose 5% 250 ML 62.5 MG IV (11:27)
[2023-07-05 13:21] VITALS: BP 178/93; PULSE 67; TEMP 36.7; O2SAT 94
[2023-07-05] MEDS: fluorouraciL 4,150 MG, elastomeric pump 1 PUMP in sodium chloride 0.9% (100 ml) 9 ML IV (13:35)
[2023-07-20 08:32] LABS: Basophils # 0.1 10^3/uL (0.0-0.1); Basophils % 0.7 %; Eosinophils # 0.2 10^3/uL (0.0-0.8); Hematocrit 32.5 % (37-53); Lymphocytes # 0.8 10^3/uL (0.8-4.8); Lymphocytes % 8.2 %; Mean Corpuscular Volume 93.7 fl (82-101); Mean Platelet Volume 10.1 fL (7.4-10.4); Monocytes # 0.8 10^3/uL (0.2-0.9); Monocytes % 8.4 %; Neutrophils # 7.65 10^3/uL (1.8-7.7); Neutrophils % 80.5 %; Nucleated Red Blood Cells % 0 %; Platelet Count 205 10^3/cmm (157-399); Red Blood Count 3.47 10^6/uL (3.85-5.65); Red Cell Distribution Width 15.9 % (12.1-15.1); White Blood Count 9.51 10^3/uL (3.29-11.43)
--- NOTE | 2023-07-20 09:30 | CT_ITS ---
WS: [id number] CT ABDOMEN AND PELVIS WITH CONTRAST HISTORY: rectal pain, pelvic pain, sciatic pain, rectal discharge TECHNIQUE: Imaging performed of the abdomen and pelvis with IV contrast. Single phase imaging of the abdomen. Coronal and sagittal reformats are submitted. All CT scans at [facility] use at [address] one of these dose optimization techniques: automated exposure control; mA and/or kV adjustment per patient size (includes targeted exams where dose is matched to clinical indication); or iterative re construction. IV CONTRAST: Omnipaque 350; 100 mL IV. Oral contrast: Yes. DLP: 310.13 mGy.cm COMPARISON: 06/15/2023 Lower thorax: Lung bases are clear. Heart is normal size. No hiatal hernia. Liver/biliary system: Extensive metastatic lesions throughout a large portion of the liver. Bulging o f the liver capsule. No obvious change since 06/15/2023. Gallbladder: Normal. No gallstones or wall thickening. No pericholecystic fluid. Pancreas: Mild diffuse atrophy. Spleen: Normal size spleen. No mass or infarct. Adrenal glands: Normal. Right kidney: Normal. Left kidney: Normal. Aorta: Mild aneurysmal dilatation abdominal aorta. Maximum diameter is 2.6 cm. Atherosclerotic plaque is diffuse. Lymphadenopathy: Low-attenuation periportal lymph node 2.8 x 3.7 cm with no interval change. Free fluid: Moderate amount of free fluid throughout the peritoneal cavity. The amount of fluid appea rs to increased since the recent ultrasound from 07/15/2023. GI tract: Stomach is not distended. No small bowel obstruction. LEFT lower quadrant colostomy. Reiden tified is the large mass centered in the LEFT pelvis inseparable and contiguous with the sigmoid colo n. Mass measures 4.7 x 7.7 cm and extends over a length of 8.5 cm. Masses in continuity with the LEFT lateral sigmoid mucosa. Enhancement within the sigmoid mucosa. The lumen of the sigmoid may be sligh tly better visualized than on the prior study. The tumor itself has not significantly changing in siz e. There are additional deep bilateral mesorectal fat masses which are metastatic deposits. The one o n the RIGHT measures 2.8 x 3.7 cm. The deposit on the LEFT 4.5 x 3.8 cm. No obvious change. There is a small amount of omental thickening in the anterior LEFT peritoneal cavity near the colostomy site. Indeterminate for omental disease. Abdominal wall: Mild soft tissue anasarca. Pelvis: Free fluid and deep pelvic metastatic deposits. No inguinal lymph nodes. Bones: No change in a focal sclerotic focus in the LEFT ilium. No new lytic or sclerotic changes. CT/CT abdomen pelvis w con* [id number] IMPRESSION: 1. Reidentified is a large mass in the LEFT pelvis associated with the sigmoid colon measures 4.7 x 7.7 x 8.5 cm. The lumen of the sigmoid colon appears slig htly more pronounced suggesting there may be an interval improvement and decrea se in size of this mass. This is very subtle and can be reevaluated. 2. Deep metastatic deposits in the pelvis and the mesorectal fat be identified without change. 3. No change in the large kirk hepatis lymph node. 4. Diffuse moderate ascites. 5. Extensive metastatic disease throughout the liver with no change. 6. Indeterminate for omental carcinomatosis in the LEFT peritoneal cavity.
[2023-07-20] MEDS: iohexol 300 mg/mL 100 mL Btl PO (10:03)
[2023-07-20] MEDS: iohexol 350 mg/mL 500 mL Btl (per mL) IV (10:12)
[2023-07-20] MEDS: sodium chloride 0.9% 250 ML 75 ML IV (10:42)
[2023-07-20] MEDS: palonosetron 0.25 mg/5 mL SDV IVP (10:42)
[2023-07-20 10:46] LABS: Alanine Aminotransferase 15 U/L (0-41); Albumin Level 3.2 g/dL (3.5-5.2); Alkaline Phosphatase 396 U/L (40-130); Anion Gap 15.5 (5-19); Aspartate Amino Transferase 35 U/L (0-40); Blood Urea Nitrogen 7 mg/dL (8-23); Calcium 8.6 mg/dL (8.5-10.5); Carbon Dioxide 26 mmol/L (22-29); Chloride 100 mmol/L (98-107); Creatinine Clr Calc Pharmacy 123.2128; Globulin 3.5 g/dL (1.3-4.6); Glomerular Filtration Rate 167.9 mL/min (90-130); Glucose 118 mg/dL (65-115); Osmolality Calculated 285 mOsm/kg (285-295); Potassium 3.5 mmol/L (3.5-5.1); Sodium 138 mmol/L (136-145); Total Bilirubin 0.4 mg/dL (0.15-1.2); Total Protein 6.7 g/dL (6.6-8.7)
[2023-07-20] MEDS: BEVACIZUMAB AWWB IV (11:29)
[2023-07-20] MEDS: SODIUM CHLORIDE 0.9% IV (11:29)
[2023-07-20] MEDS: dextrose 5% 250 ML 75 ML IV (12:08)
[2023-07-20] MEDS: leucovorin 690 MG in dextrose 5% 250 ML 62.5 MG IV (12:10)
[2023-07-20] MEDS: fluorouraciL 4,150 MG, elastomeric pump 1 PUMP in sodium chloride 0.9% (100 ml) 9 ML IV (14:21)
[2023-07-20 14:25] VITALS: BP 176/94; PULSE 99; RESP 16; TEMP 36.5; O2SAT 96
[2023-07-22 10:24] VITALS: BP 175/91; PULSE 76; RESP 17; TEMP 36.6; O2SAT 95
--- NOTE | 2023-07-29 09:25 | ONCRAD EPV_ITS ---
Radiation Oncology Established Patient Visit Patient: Yuki Dunlap [id number] : 1960 Age: 62 Sex: Male Dictated by: Dr. Sabina Way Date of Service: 07/29/2023 Referring Physician(s) : Dr. Camron Coburn Diagnosis: Stage IV rectal cancer Radiotherapy to Date: Course: Pelvis 2023, Treatment Site: Pelvis 2023, Ref. ID: [id number] Energy: 15X, Dose/Fx (cGy): 300, #Fx: , Dose Correction (cGy): 0, Total Dose Delivered (cGy): 300, Start Date: 03/11/2023, End Date: 03/11/2023, Elapsed Days: 0 Current History: Patient has been receiving chemotherapy since March. He has had marked improvement in his overall performance status but unfortunately over the last 3 weeks has had increasing pain in the rectal area which radiates down both his legs. It can feel like a pressure and also be sharp in nature. He is also noticed a marked increase in the amount of mucus that is coming out such that he has to wear a depends just for the mucus. He is here today to discuss radiation to the rectal mass to try and get his pain in the mucus under control. Current Medications: Allergies: Current Complaints / Review of Systems: . Vital Signs: Performed on 07/29/2023 9:11 AM BMI - 17.62 kg/m2 (low), Height - 70 in, Weight - 122.8 lbs, Temperature - 97.2 f, Pulse - 69 /min, Respiration - 16 /min, O2 Sat - 98 %, Pain - 8, Fatigue - 4 and BP - 148/ 79 mm(hg)(high/). Physical Exam: General: Patient is in no apparent distress. He is accompanied by his . HEENT: Normocephalic atraumatic. Pupils are equal, sclera clear, extraocular muscles intact. Pulmonary: Respiratory rate is regular nonlabored Cardiovascular: Regular rate and rhythm Abdomen: Patient is wearing a support band in order to keep his colostomy in place. He actually has developed a hernia which he says he has had from day 1. His stoma will come out and the only way to reduce it is to lay back down. He is fairly thin with minimal adipose tissue EXTREMITIES: No peripheral edema is identified. NEUROLOGIC: Alert and orient x 3. Gait and speech within normal limits. Performance Status: 80 Lab: None pending. Pathology: Imaging: See HPI Impression: Stage IV adenocarcinoma of the rectum now with progressive local symptoms Plan: I reviewed with the patient and his the use of radiation to try and decrease his pain and dry up the mucus. He has previously been through the simulation process. We talked about a 2-week course of treatment. After that I like to see him back in 2 to 4 weeks and see how he is feeling. I told him we can do an additional 2 weeks of treatment after that if necessary if his pain is not gotten to an adequate level. He verbalized understanding of this and is anxious to get started. He will undergo simulation today and will begin his treatments in the next 2 to 3 days. Signed by: 07/29/2023 9:24:17 AM <<Signature on File>> Time spent with patient:30 CPT Code: CPT Code:
== END 2023-07-30 23:59 | disposition home or self-care (01) ==
PROVIDERS: Nurse Practitioner Family; PCP Family Medicine; Visit Provider Internal Medicine Medical Oncology
DX: C21.8 Malignant neoplasm of overlapping sites of rectum, anus and anal canal (principal); Z93.3 Colostomy status; Z79.899 Other long term (current) drug therapy; G89.3 Neoplasm related pain (acute) (chronic)
CPT/HCPCS: 74177; 77290; 77334; 80053; 82378; 85025; 96367; 96368; 96375; 96413; 96415; 96416; 96417; 96523; 99214; 99215; J0640; J1100; J2469; J7050; J7060; J9190; J9263; Q5107; Q9967

== ENCOUNTER 2023-08-16 10:26 | Outpatient (CLI) | payer MEDICARE, SELFPAY ==
--- NOTE | 2023-08-16 10:30 | XRR_ITS ---
PROCEDURE INFORMATION: Exam: XR Abdomen Exam date and time: 08/16/2023 10:36 AM Age: 62 years old Clinical indication: Constipation; Prior surgery; Surgery date: 6+ months; Surgery type: Stoma/colon/liver; Additional info: Suspected constipation, flat plate and upright TECHNIQUE: Imaging protocol: Radiologic exam of the abdomen. Views: 2 Views. Upright and supine views. COMPARISON: CT abdomen pelvis w con* [id number] 07/20/2023 10:08 AM FINDINGS: Gastrointestinal tract: Left lower ostomy. No bowel obstruction or free air. Normal stool burden. Intraperitoneal space: Probable [id number] amount of diffuse free intraperitoneal fluid. No obvious free air, but the right hemidiaphragm is not included in the field of view on the upright image. Vasculature: Several small calcifications in the pelvis are highly likely to be phleboliths. However, in the proper clinical setting a distal ureteral calculus may need to be considered. Bones/joints: Mild scoliosis with mild multilevel spondylosis. XR/XR abdomen min 2V [id number] IMPRESSION: 1. Probable [id number] amount of free intraperitoneal fluid diffusely. 2. No other obvious acute findings.
== END 2023-08-16 10:27 | disposition home or self-care (01) ==
LOC: RAD 10:28
PROVIDERS: PCP Family Medicine; Visit Provider Nurse Practitioner Family
DX: R18.8 Other ascites (principal); R10.84 Generalized abdominal pain; R93.5 Abnormal findings on diagnostic imaging of other abdominal regions, including retroperitoneum; M41.9 Scoliosis, unspecified; M47.9 Spondylosis, unspecified; Z93.3 Colostomy status
CPT/HCPCS: 74019; 99215

== ENCOUNTER 2023-08-16 10:47 | Oncology outpatient (recurring) (ONCR) | payer MEDICARE, SELFPAY ==
--- NOTE | 2023-08-03 08:59 | ONCRAD TMN_ITS ---
Radiation Oncology Weekly Treatment Management Patient: Fabi Plummer> MR#: [id number] : 1960> Attending Physician: Dr. Sabina Way Date of Service: 08/03/2023 Fractions: 1 out of 10 Referring Physician(s) : Dr. Saunders Physician Diagnosis: Radiotherapy to date: Course: Pelvis 2023, Treatment Site: Pelvis 30Gy June2023, Ref. ID: [id number] Energy: 15X, Dose/Fx (cGy): 300, #Fx: 10, Dose Correction (cGy): 0, Total Dose Delivered (cGy): 300, Start Date: 08/03/2023, Elapsed Days: 0 Treatment Site: Pelvis 2023, Ref. ID: [id number], Energy: 15X, Dose/Fx (cGy): 300, #Fx: 10, Dose Correction (cGy): 0, Total Dose Delivered (cGy): 300, Start Date: 03/11/2023, End Date: 03/11/2023, Elapsed Days: 0 Reason for visit: The patient is being seen today as part of their regularly scheduled weekly on treatment visits to assess for acute toxicities from radiotherapy. Review of Systems: Patient is having quite a bit of low back pain today from his herniated disc Vital Signs: Performed on 08/03/2023 8:17 AM BMI - 19.084 kg/m2, Height - 70 in, Weight - 133 lbs, Temperature - 97.3 f, Pulse - 66 /min, Respiration - 18 /min, O2 Sat - 95 % (low), Pain - 9, Fatigue - 5 and BP - 159/ 91 mm(hg)(high). Physical Exam: No changes on exam Imaging: Radiation therapy imaging related to accurate target localization (i.e. KV, MV and CBCT) was reviewed. Appropriate changes, if any, were made to ensure treatment accuracy. Plan: He had no questions today. This was actually his second treatment as he had 1 treatment in March. Will continue with his treatments as planned Signed by: Dr. Sabina Way 08/03/2023 8:58:07 AM
[2023-08-04 08:09] LABS: Basophils # 0.1 10^3/uL (0.0-0.1); Basophils % 0.7 %; Eosinophils # 0.2 10^3/uL (0.0-0.8); Eosinophils % 1.4 %; Hematocrit 35.6 % (37-53); Lymphocytes # 0.7 10^3/uL (0.8-4.8); Mean Corpuscular Hemoglobin 29.5 pg (27-33); Mean Corpuscular Volume 92.2 fl (82-101); Mean Platelet Volume 9.9 fL (7.4-10.4); Monocytes # 0.9 10^3/uL (0.2-0.9); Monocytes % 8.4 %; Neutrophils # 8.56 10^3/uL (1.8-7.7); Neutrophils % 82.1 %; Nucleated Red Blood Cells % 0 %; Platelet Count 222 10^3/cmm (157-399); Red Blood Count 3.86 10^6/uL (3.85-5.65); Red Cell Distribution Width 16.5 % (12.1-15.1); White Blood Count 10.43 10^3/uL (3.29-11.43)
[2023-08-04 08:37] LABS: Carcinoembryonic Antigen 408.7 ng/mL (0.0-4.7)
[2023-08-04 08:48] LABS: Alanine Aminotransferase 15 U/L (0-41); Albumin Level 3.1 g/dL (3.5-5.2); Alkaline Phosphatase 362 U/L (40-130); Aspartate Amino Transferase 42 U/L (0-40); Blood Urea Nitrogen 6 mg/dL (8-23); Calcium 8.3 mg/dL (8.5-10.5); Carbon Dioxide 26 mmol/L (22-29); Chloride 100 mmol/L (98-107); Globulin 3.6 g/dL (1.3-4.6); Glomerular Filtration Rate 217.3 mL/min (90-130); Glucose 111 mg/dL (65-115); Osmolality Calculated 286 mOsm/kg (285-295); Sodium 139 mmol/L (136-145); Total Bilirubin 0.5 mg/dL (0.15-1.2); Total Protein 6.7 g/dL (6.6-8.7)
[2023-08-04] MEDS: ondansetron 2 mg/ML SDV 2 mL 8 MG IVP (10:03)
[2023-08-04 10:15] VITALS: BP 124/78; PULSE 87; RESP 18; TEMP 36.6; O2SAT 98
[2023-08-04 10:22] VITALS: BP 158/98; PULSE 88; RESP 18; TEMP 36.6; O2SAT 97
[2023-08-04 13:40] VITALS: RESP 16
[2023-08-04] MEDS: morphine 4 mg/mL SDV 1 mL SUBCUT (13:40)
[2023-08-09 08:01] LABS: Basophils # 0.1 10^3/uL (0.0-0.1); Basophils % 0.9 %; Eosinophils # 0.1 10^3/uL (0.0-0.8); Eosinophils % 1.8 %; Hematocrit 32.3 % (37-53); Lymphocytes # 0.4 10^3/uL (0.8-4.8); Lymphocytes % 6.4 %; Mean Corpuscular HGB Conc 32.2 g/dL (30-55); Mean Corpuscular Hemoglobin 29.9 pg (27-33); Mean Corpuscular Volume 92.8 fl (82-101); Mean Platelet Volume 9.6 fL (7.4-10.4); Monocytes # 0.7 10^3/uL (0.2-0.9); Monocytes % 10.9 %; Neutrophils # 5.25 10^3/uL (1.8-7.7); Neutrophils % 79.4 %; Nucleated Red Blood Cells % 0 %; Platelet Count 229 10^3/cmm (157-399); Red Blood Count 3.48 10^6/uL (3.85-5.65); Red Cell Distribution Width 17.1 % (12.1-15.1); White Blood Count 6.61 10^3/uL (3.29-11.43)
[2023-08-09 08:34] LABS: Alanine Aminotransferase 14 U/L (0-41); Alkaline Phosphatase 309 U/L (40-130); Chloride 99 mmol/L (98-107); Potassium 3.8 mmol/L (3.5-5.1); Sodium 138 mmol/L (136-145)
[2023-08-09 09:23] LABS: Anion Gap 16.8 (5-19); Aspartate Amino Transferase 34 U/L (0-40); Blood Urea Nitrogen 5 mg/dL (8-23); Calcium 8.1 mg/dL (8.5-10.5); Carbon Dioxide 26 mmol/L (22-29); Globulin 3.4 g/dL (1.3-4.6); Glomerular Filtration Rate 167.9 mL/min (90-130); Glucose 109 mg/dL (65-115); Osmolality Calculated 284 mOsm/kg (285-295); Total Bilirubin 0.5 mg/dL (0.15-1.2); Total Protein 6.4 g/dL (6.6-8.7)
--- NOTE | 2023-08-11 13:31 | ONCRAD TMN_ITS ---
Radiation Oncology Weekly Treatment Management Patient: Kavitha Dunlap> MR#: [id number] : 1960 Attending Physician: Dr. Sabina Way Date of Service: 08/11/2023 Fractions: 6 out of 10 Referring Physician(s) : Dr. Saunders Physician Diagnosis: Radiotherapy to date: Course: Pelvis 2023, Treatment Site: Pelvis 30Gy June2023, Ref. ID: [id number], Energy: 15X, Dose/Fx (cGy): 300, #Fx: , Dose Correction (cGy): 0, Total Dose Delivered (cGy): 1,800, Start Date: 08/03/2023, Elapsed Days: 8 Course: Pelvis 2023, Treatment Site: Pelvis 2023, Ref. ID: [id number], Energy: 15X, Dose/Fx (cGy): 300, #Fx: , Dose Correction (cGy): 0, Total Dose Delivered (cGy): 300, Start Date: 03/11/2023, End Date: 03/11/2023, Elapsed Days: 0 Reason for visit: The patient is being seen today as part of their regularly scheduled weekly on treatment visits to assess for acute toxicities from radiotherapy. Review of Systems: Patient noticed the mucus is already dried up. He is also noted some tenesmus on occasion. He has noticed an odd sensation when he bends his chin to his chest he feels a sensation that shoots down his body into his legs. Vital Signs: Performed on 08/11/2023 1:03 PM BMI - 19.17 kg/m2, Height - 70 in, Weight - 133.6 lbs, Temperature - 98.1 f, Pulse - 93 /min, Respiration - 18 /min, O2 Sat - 96 %, Pain - 7, Fatigue - 6 and BP - 132/ 84 mm(hg). Physical Exam: No changes on exam Imaging: Radiation therapy imaging related to accurate target localization (i.e. KV, MV and CBCT) was reviewed. Appropriate changes, if any, were made to ensure treatment accuracy. Plan: Will continue with his treatments as planned. He will start his chemotherapy next week. I will review his most recent scans to see if any of them imaged cervical spine. Signed by: Dr. Sabina Way 08/11/2023 1:29:31 PM
[2023-08-16 07:49] LABS: Basophils # 0.1 10^3/uL (0.0-0.1); Basophils % 0.7 %; Eosinophils # 0.1 10^3/uL (0.0-0.8); Hematocrit 36.4 % (37-53); Lymphocytes # 0.5 10^3/uL (0.8-4.8); Lymphocytes % 5.2 %; Mean Corpuscular HGB Conc 32.4 g/dL (30-55); Mean Corpuscular Volume 92.6 fl (82-101); Mean Platelet Volume 9.4 fL (7.4-10.4); Monocytes # 0.9 10^3/uL (0.2-0.9); Monocytes % 10.1 %; Neutrophils % 82.3 %; Nucleated Red Blood Cells % 0 %; Platelet Count 198 10^3/cmm (157-399); Red Blood Count 3.93 10^6/uL (3.85-5.65); Red Cell Distribution Width 17.2 % (12.1-15.1); White Blood Count 8.87 10^3/uL (3.29-11.43)
[2023-08-16 08:16] LABS: Carcinoembryonic Antigen 448.3 ng/mL (0.0-4.7)
[2023-08-16 08:27] LABS: Alanine Aminotransferase 11 U/L (0-41); Alkaline Phosphatase 322 U/L (40-130); Anion Gap 14.8 (5-19); Aspartate Amino Transferase 36 U/L (0-40); Blood Urea Nitrogen 7 mg/dL (8-23); Calcium 8.3 mg/dL (8.5-10.5); Carbon Dioxide 28 mmol/L (22-29); Chloride 97 mmol/L (98-107); Creatinine Clr Calc Pharmacy 183.0771; Globulin 3.6 g/dL (1.3-4.6); Glomerular Filtration Rate 217.3 mL/min (90-130); Glucose 107 mg/dL (65-115); Osmolality Calculated 280 mOsm/kg (285-295); Potassium 3.8 mmol/L (3.5-5.1); Sodium 136 mmol/L (136-145); Total Bilirubin 0.7 mg/dL (0.15-1.2); Total Protein 6.6 g/dL (6.6-8.7)
[2023-08-16 11:10] VITALS: BP 149/88; PULSE 71; RESP 16; TEMP 36.4; O2SAT 96
[2023-08-16] MEDS: sodium chloride 0.9% 250 ML 75 ML IV (11:11)
[2023-08-16] MEDS: palonosetron 0.25 mg/5 mL SDV IVP (11:15)
[2023-08-16] MEDS: acetaminophen 325 mg Tablet 650 MG PO (11:16)
[2023-08-16] MEDS: diphenhydrAMINE 50 mg/mL SDV 1mL 25 MG IVP (11:17)
[2023-08-16] MEDS: dexamethasone 4 mg/mL INJ 5 mL 12 MG IVP (11:20)
[2023-08-16] MEDS: SODIUM CHLORIDE 0.9% IV (12:03)
[2023-08-16] MEDS: PANITUMUMAB IV (12:03)
[2023-08-16] MEDS: atropine 1 mg/mL SDV 1 mL 0.400000000000000022 MG IV (13:10)
[2023-08-16] MEDS: leucovorin 700 MG in dextrose 5% 250 ML 166.669999999999987 MG IV (13:32)
[2023-08-16] MEDS: irinotecan 300 MG, irinotecan 20 MG in dextrose 5% 250 ML 177.330000000000013 MG IV (13:32)
[2023-08-16 14:51] VITALS: RESP 16
[2023-08-16] MEDS: morphine 4 mg/mL SDV 1 mL 2 MG IVP (14:51)
[2023-08-16] MEDS: fluorouraciL 4,250 MG, elastomeric pump 1 PUMP in sodium chloride 0.9% (100 ml) 7 ML IV (15:18)
[2023-08-16 15:25] VITALS: BP 168/87; PULSE 81; RESP 16; TEMP 36.3; O2SAT 91
== END 2023-08-16 23:59 | disposition home or self-care (01) ==
PROVIDERS: Nurse Practitioner Family; PCP Family Medicine; Visit Provider Radiology Radiation Oncology
DX: Z51.11 Encounter for antineoplastic chemotherapy; C18.7 Malignant neoplasm of sigmoid colon; C78.7 Secondary malignant neoplasm of liver and intrahepatic bile duct; Z53.9 Procedure and treatment not carried out, unspecified reason; Z79.899 Other long term (current) drug therapy; Z79.52 Long term (current) use of systemic steroids; Z51.0 Encounter for antineoplastic radiation therapy
CPT/HCPCS: 36591; 77295; 77300; 77334; 77387; 77412; 80053; 82378; 85025; 96368; 96372; 96375; 96413; 96415; 96416; 96417; 99024; 99214; 99215; A4222; J0461; J0640; J1100; J1200; J2270; J2405; J2469; J7050; J7060; J9190; J9206; J9303

== ENCOUNTER 2023-08-18 23:53 | Emergency (ER) | payer MEDICARE, SELFPAY ==
--- NOTE | 2023-08-18 23:57 | XRR_ITS ---
PROCEDURE INFORMATION: Exam: XR Chest Exam date and time: 08/19/2023 12:57 AM Age: 62 years old Clinical indication: Shortness of breath; Prior surgery; Surgery date: 6+ months; Surgery type: Port TECHNIQUE: Imaging protocol: Radiologic exam of the chest. Views: 1 view. COMPARISON: CT chest abdpel w/*[id number] 06/15/2023 4:42 PM FINDINGS: Tubes, catheters and devices: Left chest wall medical port with catheter tip terminating over the proximal right atrium. Lungs: Unremarkable. No consolidation. Pleural spaces: Unremarkable. No pleural effusion. No pneumothorax. Heart/Mediastinum: Unremarkable. No cardiomegaly. Bones/joints: Diffuse degenerative change of the visualized osseous structures. XR/XR chest 1V portable [id number] IMPRESSION: No acute cardiopulmonary findings.
--- NOTE | 2023-08-18 23:58 | ECG_ITS ---
[facility] Test Date: 2023-08-19 Pat Name: Kavitha Dunlap Department: Room: Gender: Male Senior Lead Java Developer: : 1960 Requested By: Taina Chin Order Number: [id number] Kirk MD: Ralf Duarte M.D. Measurements Intervals [place] Rate: 86 P: 59 TX: 155 QRS: -15 QRSD: 87 T: 32 QT: 359 QTc: 430 Interpretive Statements SINUS RHYTHM LOW QRS VOLTAGE IN EXTREMITY LEADS [QRS DEFLECTION < 0.5 mV IN LIMB LEADS] ANTEROSEPTAL MYOCARDIAL INFARCTION , PROBABLY OLD [40+ ms Q WAVE IN V1-V4] Compared to ECG 07/25/2021 03:09:02 Myocardial infarct finding now present Sinus bradycardia no longer present Electronically Signed On 08-20-2023 13:36:13 CDT by Ralf Duarte M.D. [id number]
[2023-08-18 23:59] VITALS: BP 170/106; PULSE 89; RESP 16; TEMP 36.5; O2SAT 97
[2023-08-19 00:38] LABS: Basophils % 0.3 %; Eosinophils # 0.1 10^3/uL (0.0-0.8); Eosinophils % 0.6 %; Hematocrit 39.4 % (37-53); Lymphocytes # 0.4 10^3/uL (0.8-4.8); Lymphocytes % 4.7 %; Mean Corpuscular HGB Conc 32.5 g/dL (30-55); Mean Corpuscular Hemoglobin 29.9 pg (27-33); Mean Corpuscular Volume 92.1 fl (82-101); Mean Platelet Volume 9.4 fL (7.4-10.4); Monocytes # 0.1 10^3/uL (0.2-0.9); Monocytes % 1.2 %; Neutrophils # 8.73 10^3/uL (1.8-7.7); Neutrophils % 92.8 %; Nucleated Red Blood Cells % 0 %; Platelet Count 180 10^3/cmm (157-399); Red Blood Count 4.28 10^6/uL (3.85-5.65); Red Cell Distribution Width 17.6 % (12.1-15.1); White Blood Count 9.41 10^3/uL (3.29-11.43)
--- NOTE | 2023-08-19 00:47 | W.ED.SOB ---
HPI - SOB/Dyspnea General: Chief Complaint: Shortness of Breath/Dyspnea Stated Complaint: stage 4 cancer fluid SOB BP high Time Seen by Provider: 08/18/23 23:57 History of Present Illness: HPI Narrative: Patient with a history of colon and liver cancer, who presents with worsening ascites and shortness of breath. He says his abdomen feels very tight and it starting to push on his lungs make it difficult to breathe. His oxygen saturations are 97 to 100% on room air on arrival. His abdomen is distended but is still soft. No focal tenderness. He has an appointment for paracentesis in the morning but is basically demanding to have it done now. Review of Systems Narrative: Constitutional symptoms: Negative except as documented in HPI. Skin symptoms: Negative except as documented in HPI. Eye symptoms: Negative except as documented in HPI. ENMT symptoms: Negative except as documented in HPI. Respiratory symptoms: Negative except as documented in HPI. Cardiovascular symptoms: Negative except as documented in HPI. Gastrointestinal symptoms: Negative except as documented in HPI. Genitourinary symptoms: Negative except as documented in HPI. Musculoskeletal symptoms: Negative except as documented in HPI. Neurologic symptoms: Negative except as documented in HPI. Psychiatric symptoms: Negative except as documented in HPI. Endocrine symptoms: Negative except as documented in HPI. PFSH ED PFSH: Medical History Adenocarcinoma of sigmoid colon Metastases to the liver Lumbar stenosis with neurogenic claudication Constipation Tobacco dependence Surgical History History of liver biopsy (01/13/23) Ultrasound directed liver biopsy History of colostomy (03/01/23) Placement of diverting colostomy and placement of Port-A-Cath venous access device Hx of shoulder surgery Hx of knee surgery Family History Father Cancer lung Mother Cancer colon Denies family history of Liver disease Diabetes CAD (coronary artery disease) Aneurysm Clotting disorder Dementia Depression Hyperlipidemia Hyperthyroidism Hypothyroidism Psychiatric illness Chronic kidney disease (CKD) Anesthesia complication Bleeding disorder Lung disease Hypertension Stroke Social History Smoking and tobacco/nicotine status: former use of tobacco/nicotine Alcohol intake: former Substance/Drug Use: former Date of last use: not currently, many moons before Lives independently: Yes Marital status: Number of children: 2 Current occupational status: disabled Special lacie needs: No Agree to transfusion: Yes Physical Exam Narrative: EXAM NARRATIVE: General: Alert, no acute distress. Skin: Warm, dry. Sallow appearing skin Head: Normocephalic, atraumatic. Neck: Supple, trachea midline. Eye: Extraocular movements are intact. Ears, nose, mouth and throat: mucosa moist. Cardiovascular: Regular, Normal peripheral perfusion. Respiratory: Lungs are clear to auscultation, respirations are non-labored, breath sounds are equal, Symmetrical chest wall expansion. Gastrointestinal: Patient's abdomen is distended, soft but firm, no tenderness. Musculoskeletal: Normal ROM, no deformity. Neurological: Alert and oriented, No focal neurological deficit observed. Psychiatric: Cooperative, appropriate mood & affect. Course Vital Signs: Vital signs: Vital Signs Temperature 97.7 F 08/18/23 23:59 Pulse Rate 89 08/18/23 23:59 Respiratory Rate 16 08/18/23 23:59 Blood Pressure 170/106 08/18/23 23:59 Pulse Oximetry 97 08/18/23 23:59 Oxygen Delivery Me thod Room Air 08/18/23 23:59 MDM - SOB/Dyspnea Medical Decision Making Medical decision making: Differential diagnosis including but not limited to and based on the above HPI, review of systems and physical exam: Orders placed to evaluate differential diagnosis based on the above differential, HPI and physical exam EKG: Time 0042. Rate 94. Normal sinus rhythm, No ST-T changes, no ectopy, normal NC & QRS intervals, This was reviewed and interpreted by myself the ER physician at 0046 Lab Review: Laboratory results were reviewed and interpreted by myself the emergency room physician. Patient has a white count 9.4. Hemoglobin is 12.8. BUN and creatinine are 9 and 0.5. Bilirubin was only 0.8. LFTs are normal. I reviewed the patient's medical record. I had ordered some Lasix for the patient to help with some of his fluid. He had decided that he did not want an IV he just wanted a paracentesis and since it was not done to be done until tomorrow he was leaving [place]. I had not yet been able to view the chest x-ray at the time the patient left. There is difficulty with transmitting films tonight. Lab Data 08/19/23 00:29 08/19/23 00:29 Labs/Radiology: Laboratory Results WBC 9.41 10^3/uL (3.29-11.43) 08/19/23 00: RBC 4.28 10^6/uL (3.85-5.65) 08/19/23 00: Hgb 12.80 g/dL (11.27-16.99) 08/19/23 00: Hct 39.4 % (37-53) 08/19/23 00: MCV 92.1 fl (82-101) 08/19/23 00: MCH 29.9 pg (27-33) 08/19/23: MCHC 32.5 g/dL (30-55) 08/19/23 00: RDW 17.6 % (12.1-15.1) H 08/19/23 00: Plt Count 180 10^3/cmm (157-399) 08/19/23 00: MPV 9.4 fL (7.4-10.4) 08/19/23 00: Neut % (Auto) 92.8 % 08/19/23 00: Lymph % (Auto) 4.7 % 08/19/23 00: Sargent % (Auto) 1.2 % 08/19/23 00: Eos % (Auto) 0.6 % 08/19/23 00: Baso % (Auto) 0.3 % 08/19/23 00: Neut # (Auto) 8.73 10^3/uL (1.8-7.7) H 08/19/23 00: Lymph # (Auto) 0.4 10^3/uL (0.8-4.8) L 08/19/23 00: Sargent # (Auto) 0.1 10^3/uL (0.2-0.9) L 08/19/23 00: Eos # (Auto) 0.1 10^3/uL (0.0-0.8) 08/19/23 00: Baso # (Auto) 0.0 10^3/uL (0.0-0.1) 08/19/23 00: Nucleated RBC % (auto) 0 % 08/19/23 00:29 Nucleated RBCs # 0.0 /100WBC 08/19/23 00:29 PT 13.60 SECONDS (12.1-14.9) 08/19/23 00:31 INR 1.01 (0.8-1.2) 08/19/23 00:31 APTT 36.0 SECONDS (23.9-36.7) 08/19/23 00:31 Specimen Type Arterial 08/19/23 01:05 Sample Site Radial, left 08/19/23 01:05 ABG pH 7.51 (7.35-7.45) H 08/19/23 01:05 ABG pCO2 35.9 mmHg (35-45) 08/19/23 01:05 ABG pO2 73.0 mmHg (80.0-100.0) L 08/19/23 01:05 ABG HCO3 28.8 mmol/L (22-26) H 08/19/23 01:05 ABG O2 Saturation 96.1 08/19/23 01:05 ABG Base Excess 5.7 mmol/L (-2.0-2.0) H 08/19/23 01:05 Collins Test Pos 08/19/23 01:05 A-a O2 Gradient 4.3 mmHg (5-10) L 08/19/23 01:05 Hematocrit 36.2 % (42-52) L 08/19/23 01:05 Hgb O2 Saturation 89.5 % (95-100) L 08/19/23 01:05 Carboxyhemoglobin 6.8 %THgb (0.4-20.1) 08/19/23 01:05 Methemoglobin 0.1 % (0.4-1.5) L 08/19/23 01:05 Total Hemoglobin 11.8 g/dL (14-18) L 08/19/23 01:05 Sodium 137.0 mmol/L (131-143) 08/19/23 01:05 Potassium 3.5 mmol/L (3.5-5.0) 08/19/23 01:05 Glucose 90.0 mg/dL (70-115) 08/19/23 01:05 Ionized Calcium 1.2 mmol/L (1.1-1.4) 08/19/23 01:05 O2 Delivery Device None 08/19/23 01:05 Manufacturing Management Associate ID Cl 08/19/23 01:05 Sodium 137 mmol/L (136-145) 08/19/23 00:29 Potassium 3.8 mmol/L (3.5-5.1) 08/19/23 00:29 Chloride 96 mmol/L (98-107) L 08/19/23 00:29 Carbon Dioxide 28 mmol/L (22-29) 08/19/23 00: Anion Gap 16.8 (5-19) 08/19/23 00:29 BUN 9 mg/dL (8-23) 08/19/23 00:29 Creatinine 0.5 mg/dL (0.7-1.2) L 08/19/23 00:29 GFR Calculation 167.9 mL/min (90-130) H 08/19/23 00:29 Glucose 88 mg/dL (65-115) 08/19/23 00:29 Calculated Osmolality 282 mOsm/kg (285-295) L 08/19/23 00:29 Lactic Acid 1.8 mmol/L (0.5-2.2) 08/19/23 00: Calcium 8.5 mg/dL (8.5-10.5) 08/19/23 00:29 Total Bilirubin 0.8 mg/dL (0.15-1.2) 08/19/23 00:29 AST 61 U/L (0-40) H 08/19/23 00:29 ALT 21 U/L (0-41) 08/19/23 00:29 Alkaline Phosphatase 436 U/L (40-130) H 08/19/23 00:29 Troponin T Baseline 16 ng/L (0-15) H 08/19/23 00:31 C-Reactive Protein 86.9 mg/L (0.0-4.9) H 08/19/23 00:29 NT-Pro-B Natriuret Pep 647 pg/mL (0-125) H 08/19/23 00:29 Total Protein 6.9 g/dL (6.6-8.7) 08/19/23 00:29 Albumin 3.5 g/dL (3.5-5.2) 08/19/23 00:29 Globulin 3.4 g/dL (1.3-4.6) 08/19/23 00:29 Urine Color Yellow (Yellow) 08/19/23 01:16 Urine Appearance Slightly cloudy (CLEAR) 08/19/23 01:16 Urine pH 8 (5-7) H 08/19/23 01:16 Ur Specific Gordon 1.015 (1.005-1.030) 08/19/23 01:16 Urine Protein Neg (Negative) 08/19/23 01:16 Urine Glucose (UA) Norm (Normal) 08/19/23 01:16 Urine Ketones Negative (Negative) 08/19/23 01:16 Urine Blood 2+ (Negative) H 08/19/23 01:16 Urine Nitrate Negative (Negative) 08/19/23 01:16 Urine Bilirubin Neg (Negative) 08/19/23 01:16 Prot Sulfosalicylic Acd Negative (Negative) 08/19/23 01:16 Urine Urobilinogen Neg mg/dL (Negative) 08/19/23 01:16 Ur Leukocyte Esterase Negative (Negative) 08/19/23 01:16 Urine RBC 5-10 /hpf (0-2) H 08/19/23 01:16 Urine WBC None /hpf (0-5) 08/19/23 01:16 Ur Squamous Epith Cells None /hpf (0-5) 08/19/23 01:16 Amorphous Sediment 2+ /hpf 08/19/23 01:16 Urine Bacteria Trace /hpf (NONE) 08/19/23 01:16 Urine Mucus 1+ /hpf 08/19/23 01:16 All radiology interpretation(s) finalized by discharge Discharge Plan Discharge Patient Disposition: Left Against Medical Advice Clinical Impression: Ascites Qualifiers: Ascites type: malignant Qualified Code(s): R18.0 - Malignant ascites Condition: Stable Prescriptions: No Action (DME) ostomy supplies See Rx Instructions .Route .MEDSUPPLY Qty: 1 10RF Rx Instructions: As directed (DME) Home self urinary straight cath kid See Rx Instructions .Route .MEDSUPPLY Qty: 1 3RF Rx Instructions: As directed lactulose 20 gram/30 mL solution 20 g PO .COMPLEX MDD 180 ml PRN (Reason: constipation) Qty: 1200 1RF Rx Instructions: 20 grams orally 30 ml Q 2 hours until bowel movement.; PRN; naloxone 4 mg/actuation spray,non-aerosol 4 mg intranasal Q2M PRN (Reason: overdose) Rx Instructions: spray 1 dose into ONE nostril; alternate nostrils w each dose until help arrives (DME) colostomy bags See Rx Instructions .Route .MEDSUPPLY Qty: 30 3RF Rx Instructions: As directed Relistor 8 mg/0.4 mL syringe 8 mg SUBCUT DAILY Qty: 2.8 3RF ondansetron 4 mg tablet,disintegrating 4 mg PO Q6H PRN (Reason: Nausea) Qty: 30 3RF pantoprazole [Protonix] 40 mg tablet,delayed release (DR/EC) 40 mg PO DAILY Qty: 30 0RF metoprolol tartrate 25 mg tablet 25 mg PO BID Qty: 60 1RF morphine concentrate 100 mg/5 mL (20 mg/mL) solution 30 mg PO Q2H PRN (Reason: pain) 14 Days Qty: 240 0RF Movantik 12.5 mg tablet 12.5 mg PO QAM Qty: 10 0RF Rx Instructions: must be taken on empty stomach; no food 1 hr after or 2-3 hrs before dose lubiprostone 24 mcg capsule 24 mcg PO BID Referrals: Crescencio Sotomayor MD [Primary Care Provider] - Coding Level of Care Code ED Transitional Living Specialist for Ondina Lau
[2023-08-19 00:49] LABS: INR 1.01 (0.8-1.2)
[2023-08-19 00:54] LABS: Lactic Sepsis W/Reflex 1.8 mmol/L (0.5-2.2)
[2023-08-19 00:56] LABS: Troponin(5th) Baseline 16 ng/L (0-15)
[2023-08-19 01:00] VITALS: BP 151/97; PULSE 80; RESP 20; O2SAT 96
[2023-08-19 01:06] LABS: Alanine Aminotransferase 21 U/L (0-41); Albumin Level 3.5 g/dL (3.5-5.2); Alkaline Phosphatase 436 U/L (40-130); Anion Gap 16.8 (5-19); Aspartate Amino Transferase 61 U/L (0-40); Blood Urea Nitrogen 9 mg/dL (8-23); C Reactive Protein 86.9 mg/L (0.0-4.9); Calcium 8.5 mg/dL (8.5-10.5); Carbon Dioxide 28 mmol/L (22-29); Chloride 96 mmol/L (98-107); Creatinine Clr Calc Pharmacy 146.0733; Globulin 3.4 g/dL (1.3-4.6); Glomerular Filtration Rate 167.9 mL/min (90-130); Glucose 88 mg/dL (65-115); NT Pro B Type Natriuretic Pept 647 pg/mL (0-125); Osmolality Calculated 282 mOsm/kg (285-295); Potassium 3.8 mmol/L (3.5-5.1); Sodium 137 mmol/L (136-145); Total Bilirubin 0.8 mg/dL (0.15-1.2); Total Protein 6.9 g/dL (6.6-8.7)
[2023-08-19 01:21] LABS: ABG PCO2 35.9 mmHg (35-45); ABG PH Result 7.51 (7.35-7.45); Alveolar-Arterial Oxygen Gradi 4.3 mmHg (5-10); Arterial Blood Gas Hematocrit 36.2 % (42-52); Base Excess ABG 5.7 mmol/L (-2.0-2.0); Blood Gas Allen Test Pos; Blood Gas Operator Identificat CL; Blood Gas Sample Site Radial, left; Blood Gas Sample Type Arterial; Carboxyhemoglobin 6.8 %THgb (0.4-20.1); HCO3 ABG 28.8 mmol/L (22-26); HGB O2 Sat 89.5 % (95-100); Ionized Calcium Level - ABG 1.2 mmol/L (1.1-1.4); Methemoglobin 0.1 % (0.4-1.5); Oxygen Saturation ABG 96.1; Potassium Level - ABG 3.5 mmol/L (3.5-5.0); Total Hemoglobin 11.8 g/dL (14-18)
[2023-08-19 01:30] VITALS: BP 159/92; PULSE 76; RESP 18; O2SAT 96
[2023-08-19 02:00] LABS: Add Urine Culture? No; Amorphous Sediment Urine 2+ /hpf; Bacteria Urine TRACE /hpf; Bilirubin Urine Neg (Negative); Blood Urine 2+ (Negative); Glucose Urine UA Norm (Normal); Ketones Urine Negative (Negative); Leukocyte Esterase Urine Negative (Negative); Mucus Urine 1+ /hpf; Nitrate Urine Negative (Negative); Protein Urine Neg (Negative); Specific Gravity, Urine 1.015 (1.005-1.030); Sulfosalicylic Acid Urine Negative (Negative); Urine Appearance Slightly Cloudy (CLEAR); Urine Color Yellow (Yellow); Urobilinogen Urine Neg (Negative); pH Urine 8 (5-7)
== END 2023-08-19 02:00 | disposition left against medical advice (07) ==
PROVIDERS: Emergency Provider Emergency Medicine; PCP Family Medicine
DX: C18.9 Malignant neoplasm of colon, unspecified (principal); C78.7 Secondary malignant neoplasm of liver and intrahepatic bile duct; R18.0 Malignant ascites; Z53.29 Procedure and treatment not carried out because of patient's decision for other reasons; Z87.891 Personal history of nicotine dependence
CPT/HCPCS: 36415; 71045; 80051; 80053; 81001; 82330; 82805; 83605; 83880; 84484; 85025; 85610; 85730; 86140; 87040; 93005; 99285

== ENCOUNTER 2023-08-19 11:22 | Day surgery (SDC) | payer MEDICARE, SELFPAY ==
--- NOTE | 2023-08-19 11:37 | US_ITS ---
WS: [id number] ULTRASOUND-GUIDED PARACENTESIS CLINICAL INFORMATION: MODERATE TO LARGE AMOUNT OF FLUID ON XRAY, ASCITES COMPARISON: None. Procedure Informed consent: The risks, benefits, and alternatives of the procedure were discussed with the gertrudis ent. Verbal and written consent was obtained. Timeout: A timeout was performed to confirm the correct patient, procedure, and site. Preparation: A suitable skin site was identified. The patient was prepped and draped in usual sterile fashion. Lidocaine 1% was used for local anesthesia. Catheter: 4 Nepali One-step Yueh catheter. Side: LEFT lower quadrant. Fluid Volume: 5000 ml Color: Clear yellow DISPOSITION: Discarded safely. Complications: None. Patient disposition: Discharged from the department in stable condition. US/US paracentesis abd w [id number] IMPRESSION: Uncomplicated ultrasound-guided paracentesis. Removal of 5000 cc
== END 2023-08-19 13:04 | disposition home or self-care (01) ==
PROVIDERS: Radiology Neuroradiology; PCP Family Medicine; Visit Provider Nurse Practitioner Family
PROC: (CPT 49082; principal; 2023-08-19 12:30)
DX: R18.8 Other ascites (principal)
CPT/HCPCS: 49083

== ENCOUNTER 2023-08-25 08:02 | Oncology outpatient (recurring) (ONCR) | payer MEDICARE, SELFPAY ==
--- NOTE | 2023-08-18 11:20 | N.ONRD TS_ITS ---
Radiation Oncology Treatment Summary Patient: Kavitha Dunlap MR#: [id number] : 1960 Age: 62 Sex: Male Dictated by: Dr. Sabina Way Date of Service: 08/18/2023 Referring Physician(s) : Dr. Saunders Physician Diagnosis: Radiotherapy to Date: Course: Pelvis 2023, Treatment Site: Pelvis 30Gy June2023, Ref. ID: [id number], Energy: 15X, Dose/Fx (cGy): 300, #Fx: 10 / 10, Dose Correction (cGy): 0, Total Dose Delivered (cGy): 3,000, Start Date: 08/03/2023, End Date: 08/18/2023, Elapsed Days: 15 Pelvis 2023, Treatment Site: Pelvis 2023, Ref. ID: [id number], Energy: 15X, Dose/Fx (cGy): 300, #Fx: 1 / 10, Dose Correction (cGy): 0, Total Dose Delivered (cGy): 300, Start Date: 03/11/2023, End Date: 03/11/2023 Elapsed Days: 0 Clinical Summary: The patient tolerated RT well. He had minimal toxicity. He did notice some mild improvement during the course of his treatment. Plan: End of treatment today. Continue on the above medication until the skin reaction resolves. Follow up in two weeks. Signed by: Dr. Sabina Way>08/18/2023 11:18:09 AM <<Signature on File>>
[2023-08-23 15:24] LABS: Basophils % 0.3 %; Eosinophils # 0.1 10^3/uL (0.0-0.8); Hematocrit 33.7 % (37-53); Lymphocytes # 0.7 10^3/uL (0.8-4.8); Lymphocytes % 6.8 %; Mean Corpuscular HGB Conc 32.6 g/dL (30-55); Mean Corpuscular Hemoglobin 29.8 pg (27-33); Mean Corpuscular Volume 91.3 fl (82-101); Mean Platelet Volume 10.3 fL (7.4-10.4); Monocytes # 0.4 10^3/uL (0.2-0.9); Monocytes % 3.9 %; Neutrophils # 8.41 10^3/uL (1.8-7.7); Neutrophils % 86.7 %; Nucleated Red Blood Cells % 0 %; Platelet Count 162 10^3/cmm (157-399); Red Blood Count 3.69 10^6/uL (3.85-5.65); Red Cell Distribution Width 17.2 % (12.1-15.1); White Blood Count 9.71 10^3/uL (3.29-11.43)
[2023-08-23 15:53] LABS: Alanine Aminotransferase 21 U/L (0-41); Alkaline Phosphatase 445 U/L (40-130); Anion Gap 13.3 (5-19); Aspartate Amino Transferase 33 U/L (0-40); Blood Urea Nitrogen 10 mg/dL (8-23); Calcium 8.1 mg/dL (8.5-10.5); Carbon Dioxide 26 mmol/L (22-29); Chloride 98 mmol/L (98-107); Globulin 3.2 g/dL (1.3-4.6); Glomerular Filtration Rate 217.3 mL/min (90-130); Glucose 116 mg/dL (65-115); Osmolality Calculated 276 mOsm/kg (285-295); Potassium 4.3 mmol/L (3.5-5.1); Sodium 133 mmol/L (136-145); Total Bilirubin 0.8 mg/dL (0.15-1.2); Total Protein 6.2 g/dL (6.6-8.7)
[2023-08-25] MEDS: SODIUM CHLORIDE IV (08:45)
[2023-08-25] MEDS: MULTIVITAMIN IV (08:45)
[2023-08-25 08:55] VITALS: BP 113/76; PULSE 68; RESP 16; O2SAT 92
[2023-08-25 10:30] VITALS: BP 131/87; PULSE 77; RESP 16; O2SAT 99
== END 2023-08-29 23:59 | disposition home or self-care (01) ==
PROVIDERS: Nurse Practitioner Family; PCP Family Medicine; Visit Provider Radiology Radiation Oncology
DX: C18.7 Malignant neoplasm of sigmoid colon; C78.7 Secondary malignant neoplasm of liver and intrahepatic bile duct; Z53.9 Procedure and treatment not carried out, unspecified reason
CPT/HCPCS: 36591; 77336; 77387; 77412; 80053; 85025; 96365; 96366; 96523; 99024; J7040

== ENCOUNTER 2023-09-09 11:34 | Day surgery (SDC) | payer MEDICARE, SELFPAY ==
[2023-09-09 11:48] VITALS: BMI 16.5
[2023-09-09 11:49] VITALS: BP 128/79; PULSE 70; RESP 16; TEMP 36.3; O2SAT 96
--- NOTE | 2023-09-09 11:54 | US_ITS ---
WS: [id number] ULTRASOUND-GUIDED PARACENTESIS CLINICAL INFORMATION: malignant neoplasm of sigmoid colon COMPARISON: None. Procedure Informed consent: The risks, benefits, and alternatives of the procedure were discussed with the gertrudis ent. Verbal and written consent was obtained. Timeout: A timeout was performed to confirm the correct patient, procedure, and site. Preparation: A suitable skin site was identified. The patient was prepped and draped in usual sterile fashion. Lidocaine 1% was used for local anesthesia. Catheter: 4 Guamanian One-step Stick and Playeh catheter. Side:. LEFT Lower quadrant. Fluid Volume: 3200 ml Color: Clear yellow DISPOSITION: Discarded safely. Complications: None. Patient disposition: Discharged from the department in stable condition. US/US paracentesis abd w [id number] IMPRESSION: Uncomplicated ultrasound-guided paracentesis. Removal of 3200 cc
[2023-09-09] MEDS: ondansetron 4 MG Tablet PO (12:56)
== END 2023-09-09 13:24 | disposition home or self-care (01) ==
LOC: GILAB 11:35
PROVIDERS: Radiology Neuroradiology; PCP Family Medicine; Visit Provider Nurse Practitioner Family
PROC: (CPT 49082; principal; 2023-09-09 12:30)
DX: C18.7 Malignant neoplasm of sigmoid colon (principal)
CPT/HCPCS: 49083; Q0162

== ENCOUNTER 2023-09-09 14:00 | Oncology outpatient (recurring) (ONCR) | payer MEDICARE, SELFPAY ==
[2023-08-30 07:54] LABS: Basophils % 1.2 %; Eosinophils # 0.1 10^3/uL (0.0-0.8); Hematocrit 33.9 % (37-53); Lymphocytes # 0.5 10^3/uL (0.8-4.8); Lymphocytes % 15.2 %; Mean Corpuscular HGB Conc 33.3 g/dL (30-55); Mean Corpuscular Hemoglobin 30.6 pg (27-33); Mean Corpuscular Volume 91.9 fl (82-101); Mean Platelet Volume 9.5 fL (7.4-10.4); Monocytes # 0.7 10^3/uL (0.2-0.9); Neutrophils # 2.07 10^3/uL (1.8-7.7); Neutrophils % 60.3 %; Nucleated Red Blood Cells % 0 %; Platelet Count 257 10^3/cmm (157-399); Red Blood Count 3.69 10^6/uL (3.85-5.65); Red Cell Distribution Width 18.1 % (12.1-15.1); White Blood Count 3.43 10^3/uL (3.29-11.43)
[2023-08-30 08:12] LABS: Albumin Level 2.8 g/dL (3.5-5.2); Alkaline Phosphatase 407 U/L (40-130); Anion Gap 15.3 (5-19); Aspartate Amino Transferase 30 U/L (0-40); Blood Urea Nitrogen 8 mg/dL (8-23); Calcium 8.2 mg/dL (8.5-10.5); Carbon Dioxide 26 mmol/L (22-29); Chloride 97 mmol/L (98-107); Creatinine Clr Calc Pharmacy 149.1661; Glomerular Filtration Rate 217.3 mL/min (90-130); Glucose 101 mg/dL (65-115); Osmolality Calculated 276 mOsm/kg (285-295); Potassium 4.3 mmol/L (3.5-5.1); Sodium 134 mmol/L (136-145); Total Bilirubin 0.5 mg/dL (0.15-1.2); Total Protein 5.8 g/dL (6.6-8.7)
[2023-08-30 08:22] LABS: Alanine Aminotransferase 14 U/L (0-41)
[2023-08-30 10:15] VITALS: BP 113/74; PULSE 61; RESP 16; TEMP 36.1; O2SAT 95
[2023-08-30 10:17] VITALS: RESP 16; O2SAT 95
[2023-08-30] MEDS: morphine 4 mg/mL SDV 1 mL SUBCUT (10:17)
[2023-08-30] MEDS: sodium chloride 0.9% 250 ML 75 ML IV (10:17)
[2023-08-30] MEDS: palonosetron 0.25 mg/5 mL SDV IVP (10:20)
[2023-08-30] MEDS: acetaminophen 325 mg Tablet 650 MG PO (10:20)
[2023-08-30 10:21] LABS: Magnesium 1.7 mg/dL (1.7-2.3)
[2023-08-30] MEDS: diphenhydrAMINE 50 mg/mL SDV 1mL 25 MG IVP (10:22)
[2023-08-30] MEDS: dexamethasone 4 mg/mL INJ 5 mL 12 MG IVP (10:24)
[2023-08-30 10:37] LABS: 25 Hydroxy Vitamin D 8 ng/mL (30-100)
[2023-08-30] MEDS: SODIUM CHLORIDE 0.9% IV (10:56)
[2023-08-30] MEDS: PANITUMUMAB IV (10:56)
[2023-08-30] MEDS: atropine 1 mg/mL SDV 1 mL 0.4 MG IV (12:02)
[2023-08-30] MEDS: irinotecan 300 MG, irinotecan 10 MG in dextrose 5% 250 ML 177 MG IV (12:31)
[2023-08-30] MEDS: leucovorin 680 MG in dextrose 5% 250 ML 166.67 MG IV (12:31)
--- NOTE | 2023-08-30 13:36 | ONCRAD EPV_ITS ---
Radiation Oncology Established Patient Visit Patient: Kavitha Dunlap [id number] : 1960> Age: 62> Sex: Male> Dictated by: Dr. Sabina Way Date of Service: 08/30/2023 Patient is here for infusion today. He is about a month from completion of treatment. He said good response to the treatment but continues to have problems when he bends his neck at the cervical spine area he gets numbness down his arms and his legs. His CT of his neck is scheduled for Wednesday Referring Physician(s) : Dr. Saunders Physician Diagnosis: Radiotherapy to Date: Course: Pelvis 2023, Treatment Site: Pelvis 30Gy June2023, Ref. ID: [id number], Energy: 15X, Dose/Fx (cGy): 300, #Fx: 10 / 10, Dose Correction (cGy): 0, Total Dose Delivered (cGy): 3,000, Start Date: 08/03/2023, End Date: 08/18/2023, Elapsed Days: 15 Pelvis 2023, Treatment Site: Pelvis 2023, Ref. ID: [id number], Energy: 15X, Dose/Fx (cGy): 300, #Fx: 10, Dose Correction (cGy): 0, Total Dose Delivered (cGy): 300, Start Date: 03/11/2023, End Date: 03/11/2023, Elapsed Days: 0 Current History: Current Medications: Allergies: Current Complaints / Review of Systems: . Vital Signs: Performed on 08/30/2023 10:00 AM BMI - 17.649 kg/m2 (low), Height - 70 in, Weight - 123 lbs, Temperature - 98.7 f, Pulse - 72 /min, Respiration - 17 /min, O2 Sat - 95 % (low), Pain - 6, Fatigue - 4 and BP - 120/ 84 mm(hg). Physical Exam: General: Alert and oriented x 3. No acute distress. HEENT: Normocephalic atraumatic. Pupils are equal, sclera clear, extraocular muscles intact. LUNGS: Respiratory rate is regular nonlabored HEART: Regular rate and rhythmMUSCULOSKELETAL: No tenderness or percussion pain over the axial skeleton, scapulae or pelvis. ABDOMEN: Patient is quite cachectic with no adipose tissue Performance Status: 80 Lab: None pending. Pathology: Imaging: See HPI Impression: Stage IV adenocarcinoma of the rectum Plan at this time he had good response to the palliative treatment but he has developed a new problem which he thinks is just from normal [id number] in his spine. He has had issues with his low back and mid back for many years. We had originally tried to schedule an MRI but he was unable to do this because of his claustrophobia. He did agree to a CT scan which is scheduled for Wednesday. Signed by: 08/30/2023 1:35:14 PM <<Signature on File>> Time spent with patient:15 CPT Code: CPT Code:
[2023-08-30] MEDS: fluorouraciL 4,100 MG, elastomeric pump 1 PUMP in sodium chloride 0.9% (100 ml) 10 ML IV (14:19)
[2023-08-30 14:25] VITALS: BP 121/79; PULSE 63; RESP 16; TEMP 36.2; O2SAT 96
[2023-09-01 10:25] VITALS: BP 114/78; PULSE 84; RESP 17; TEMP 36.3; O2SAT 96
--- NOTE | 2023-09-03 14:00 | CTR_ITS ---
PROCEDURE INFORMATION: Exam: CT Neck Without Contrast Exam date and time: 09/03/2023 1:01 PM Age: 62 years old Clinical indication: Other: Intermittent numbness legs and arms; Patient HX: HX of colon cancer with mets; Additional info: Intermittent numbness legs and arm TECHNIQUE: Imaging protocol: Computed tomography of the neck without contrast. Radiation optimization: All CT scans at this facility use at least one of these dose optimization techniques: automated exposure control; mA and/or kV adjustment per patient size (includes targeted exams where dose is matched to clinical indication); or iterative reconstruction. COMPARISON: None RADIATION DOSE METRICS: Total DLP (mGy-cm): 130.1 FINDINGS: Limitations: This study is limited without the use of IV contrast, particularly for the evaluation of infection and malignancy. Salivary glands: Normal. Glands are normal in size. Oral cavity: Suboptimal evaluation of the oral cavity secondary to streak artifact from dental amalgam. Pharynx: Nasopharynx, oropharynx and hypopharynx are unremarkable. Prevertebral and retropharyngeal spaces: Unremarkable. Larynx: Unremarkable. Epiglottis is normal. Thyroid: 1.4 cm left thyroid nodule. The thyroid gland would be better assessed with thyroid ultrasound if clinically warranted . Trachea: Visualized upper trachea is unremarkable. Lungs: Biapical lung scarring. Lymph nodes: No cervical lymphadenopathy. Bones/joints: The cervical vertebral body heights are maintained. There is a 2 mm anterolisthesis of C4 on C5. Moderate disc space narrowing at C5-C6 and C6-C7 Soft tissues: Subcutaneous soft tissues are unremarkable. CT/CT neck wo con [id number] IMPRESSION: 1. No acute soft tissue neck pathology is identified. If symptoms persist, consider further evaluation with contrast-enhanced CT scan of the neck or MRI of the neck with and without IV contrast. 2. The thyroid nodule. The thyroid gland would be better assessed with thyroid ultrasound if clinically warranted. COMMENTS: Consistent with the [employer]'s Incidental Findings Committee white paper (J Am Eva Radiol 2015): In patients aged 35 years and older with an incidental thyroid nodule equal to or greater than 1.[address], MRI or extrathyroidal US, further evaluation with dedicated thyroid US is recommended for patients with normal life expectancy and without comorbidities. For smaller nodules without suspicious features, no further evaluation or follow up is recommended.
[2023-09-09 13:45] VITALS: BP 127/83; PULSE 86; RESP 17; TEMP 36.6; O2SAT 98
[2023-09-09] MEDS: MULTIVITAMIN IV (14:40)
[2023-09-09] MEDS: SODIUM CHLORIDE IV (14:40)
[2023-09-09] MEDS: ondansetron 2 mg/ML SDV 2 mL 8 MG IVP (15:56)
[2023-09-09] MEDS: famotidine 20 mg/2 mL INJ IVP (16:14)
[2023-09-09 16:30] VITALS: BP 120/80; PULSE 78; PULSE 84; RESP 18; TEMP 36.6; O2SAT 97; O2SAT 98
== END 2023-09-15 23:59 | disposition home or self-care (01) ==
PROVIDERS: Internal Medicine; Nurse Practitioner Family; PCP Family Medicine; Visit Provider Radiology Radiation Oncology
DX: C18.7 Malignant neoplasm of sigmoid colon; C78.7 Secondary malignant neoplasm of liver and intrahepatic bile duct; D64.9 Anemia, unspecified; K21.9 Gastro-esophageal reflux disease without esophagitis
CPT/HCPCS: 70490; 80053; 82306; 83735; 85025; 96360; 96361; 96368; 96372; 96375; 96413; 96415; 96416; 96417; 96523; 99212; 99213; 99214; A4222; J0461; J0640; J1100; J1200; J2270; J2405; J2469; J3490; J7040; J7050; J7060; J9190; J9206; J9303

== ENCOUNTER 2023-09-12 06:43 | Inpatient (IN) | payer MEDICARE, SELFPAY ==
[2023-09-12] VITALS (36 sets, daily range): BP systolic 98–147; BP diastolic 68–107; PULSE 70–160; RESP 6–24; TEMP 36.4; O2SAT 84–100; BMI 11.5
--- NOTE | 2023-09-12 07:01 | XRR_ITS ---
PROCEDURE INFORMATION: Exam: XR Chest Exam date and time: 09/12/2023 7:18 AM Age: 62 years old Clinical indication: Shortness of breath; Additional info: Resuscitation TECHNIQUE: Imaging protocol: Radiologic exam of the chest. Views: 1 view. COMPARISON: CR (CHEST, ) 08/19/2023 12:57 AM FINDINGS: Tubes, catheters and devices: Medication port is seen on the left with its tip overlying the SVC. Lungs: Unremarkable. No consolidation. Pleural spaces: Unremarkable. No pleural effusion. No pneumothorax. Heart/Mediastinum: Unremarkable. No cardiomegaly. Bones/joints: Unremarkable. XR/XR chest 1V portable [id number] IMPRESSION: 1. No acute cardiopulmonary findings.
[2023-09-12 07:02] LABS: Glucose Point of Care 470 mg/dL (70-110)
--- NOTE | 2023-09-12 07:03 | ED_ITS ---
HPI - Altered Mental Status 2 General: Chief Complaint: Altered Mental Status Stated Complaint: UNRESPONSIVE Time Seen by Provider: 09/12/23 06:44 Source: family and EMS Mode of arrival: EMS Limitations: altered mental status History of Present Illness: This patient was transported from his home by EMS. History is initially obtained from EMS. Apparently they were called to the scene because of decreased responsiveness. Upon arrival they noted to be depressed respirations pinpoint pupils and blood sugar of 29 mg percent. They transported him in that condition to the emergency department. His additional history is apparently is being followed by oncology for colorectal cancer which allegedly is metastatic. He is currently still receiving chemo and radiation therapy and is a full resuscitation per EMS. His arrived shortly thereafter and stated that he had been doing okay last evening and then went to bed and she noted earlier this morning that he was less responsive. She states that he took less than his usual dose of morphine last night. She reiterates that her understanding is that he is doing okay and has not entertained palliative or hospice care. MD complaint: decreased responsiveness Review of Systems 2 General: Reports: ROS unobtainable due to mental status and Other (Review of systems is via surrogate ) Const: Denies: fever(s) or chills GI: Reports: nausea and change in bowel habits; Denies: vomiting PFSH ED 2 PFSH: Medical History GERD (gastroesophageal reflux disease) Adenocarcinoma of sigmoid colon Metastases to the liver Lumbar stenosis with neurogenic claudication Constipation Tobacco dependence Surgical History History of liver biopsy (01/13/23) Ultrasound directed liver biopsy History of colostomy (03/01/23) Placement of diverting colostomy and placement of Port-A-Cath venous access device Hx of shoulder surgery Hx of knee surgery Family History Father Cancer lung Mother Cancer colon Denies family history of Liver disease Diabetes CAD (coronary artery disease) Aneurysm Clotting disorder Dementia Depression Hyperlipidemia Hyperthyroidism Hypothyroidism Psychiatric illness Chronic kidney disease (CKD) Anesthesia complication Bleeding disorder Lung disease Hypertension Stroke Social History Smoking and tobacco/nicotine status: unknown if used tobacco/nicotine Alcohol intake: former Substance/Drug Use: former Date of last use: not currently, many moons before Lives independently: Yes Marital status: Number of children: 2 Current occupational status: disabled Special lacie needs: No Agree to transfusion: Yes Physical Exam 2 Narrative: And emaciated male who is nonresponsive and currently on a nasal cannula via EMS. Const: EXAM LIMITATIONS: altered mental status NUTRITIONAL APPEARANCE: c achectic HENMT: COMMON NORMALS: normocephalic; oral mucous membranes not moist HEAD & SCALP: normocephalic Eye: PUPIL: Yes Pinpoint pupils Neck/C-Spine: COMMON NORMALS: no lymphadenopathy and no JVD Resp: COMMON NORMALS: clear to auscultation bilaterally EFFORT & INSPECTION: Yes decreased respiratory effort AUSCULTATION: clear to auscultation bilaterally Cardio: COMMON NORMALS: no JVD, regular rate, No murmurs present (Cardio) and Peripheral pulses 2+ throughout RATE: regular rate PERIPHERAL PULSES: P eripheral pulses 2+ throughout GI: OTHER: Patient has a scaphoid abdomen with a colostomy stoma in the mid abdomen. Extremity: NARRATIVE EXTREMITY EXAM: Decreased muscle mass no deformity Neuro: DEACON COMA SCALE: document GCS findings Ely coma scale eye opening: None Ely coma scale verbal response: None Ely coma scale motor response: Normal flexion Deacon coma scale total score: 6 Skin: NARRATIVE SKIN EXAM: He has a 1 cm x 2 cm grade 2 pressure sore in his gluteal cleft region clear discharge and no surrounding erythema GENERAL SKIN EXAM: turgor decreased Course 2 Reevaluation(s): Reevaluation #1: Upon arrival we accessed his port as well as placed an IO. Made plans for resuscitation pending his response to initial therapy. He was given 0.4 mg of Narcan as well as 25 g of glucose IV. He became much more responsive and had improved spontaneous respirations and increased alertness. I had a brief but ole discussion with spouse who who arrived. Her understanding is that he is she wishes to continue with full resuscitation. I did discuss that based upon my brief variance with him currently that he is very emaciated has no reserve and that we will comply with her wishes but she needs to have further discussion with oncology regarding his prognosis. He has markedly turned around from his presentation and my goal is to continue to provide supportive care short of intubating him unless he loses respiratory drive or becomes continuously hypoxic. Time: 07:10 Reevaluation #2: Patient is quite alert at this time and requesting pain medicine. We will judiciously replace his opiates as we have completely reversed him. Time: 07:14 Reevaluation #3: Patient's blood sugar is is tenuous. Will likely have to place him in observation for continued blood sugar monitoring and also further discuss his condition and potentially palliative and/or hospice care Time: 08:20 Additional Reevaluation(s): Patient is now eating. Consultations: Consultation #1: Spoke with Dr. Galeano and we reviewed his current findings. He does have increase in his liver test as well as his total bili. Will go ahead and scan him to better delineate his biliary tract at this time and not way we can make a determination and have an honest discussion. Time: 10:04 Vital Signs: Vital signs: Vital Signs Pulse Rate 75 09/12/23 10:50 Respiratory Rate 17 09/12/23 10:50 Blood Pressure 116/86 09/12/23 10:50 Pulse Oximetry 100 09/12/23 10:50 Oxygen Delivery Me thod Nasal Cannula 09/12/23 06:46 MDM - Altered Mental Status Medical Decision Making This patient presented as noted in the HPI with hypoglycemia and respiratory depression likely due to his underlying disease as well as his opiate delayed metabolism. He received emergent care with Narcan and glucose solutions in the emergency department. The patient revived back to his baseline. Patient has metastatic disease and is debilitated appearing clinically with cachexia. Received continued IV fluid infusion blood sugars remain somewhat tenuous and he got to the point where he was able to eat. Appetite is also revealed volume depletion as 1 would expect from his clinical appearance. He also had marked elevations in transaminases total bili and alkaline phosphatase. Imaging was obtained to ensure that there was no acute reversible process that required intervention. He did have a thrombosed splenic vein but no evidence of biliary tract mass effect with obstruction. Obviously has the underlying disease with metastasis. Plan will be to place him in inpatient status for ole discussion regarding palliative care with patient and spouse. Lab Data 09/12/23 07:30 09/12/23 07:30 Radiology Impressions Chest X-Ray 09/12/23 07:01 IMPRESSION: 1. No acute cardiopulmonary findings. Abdomen/Pelvis CT 09/12/23 10:04 IMPRESSION: 1. Partially imaged suspected pneumonitis involving the superior right middle lobe. 2. Large mass involving the rectosigmoid colon with surrounding nodularity within the perirectal fat. Overall, there appears to be slight interval improvement in this regard when compared to prior exam. 3. Metastatic disease to the liver worse on today's exam. 4. Large periportal lymph nodes not appreciably changed. 5. Decreased density to the spleen. 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 6. Large volume ascites. ADDENDUM: 09/12/23 1104 COMMENT: THIS REPORT CONTAINS FINDINGS THAT MAY BE CRITICAL TO PATIENT CARE. The exam findings were verbally communicated by me to MIKE PIERCE via telephone conference at 11:01 AM CDT on 09/12/2023. The findings were acknowledged and understood. Laboratory Results WBC 3.86 10^3/uL (3.29-11.43) 09/12/23 07:30 RBC 3.42 10^6/uL (3.85-5.65) L 09/12/23 07:30 Hgb 10.20 g/dL (11.27-16.99) L 09/12/23 07:30 Hct 30.1 % (37-53) L 09/12/23 07:30 MCV 88.0 fl (82-101) 09/12/23 07:30 MCH 29.8 pg (27-33) 09/12/23 07:30 MCHC 33.9 g/dL (30-55) 09/12/23 07:30 RDW 17.5 % (12.1-15.1) H 09/12/23 07:30 Plt Count 154 10^3/cmm (157-399) L 09/12/23 07:30 MPV 10.7 fL (7.4-10.4) H 09/12/23 07:30 Neut % (Auto) 72.5 % 09/12/23 07:30 Lymph % (Auto) 13.5 % 09/12/23 07:30 [place] % (Auto) 12.2 % 09/12/23 07:30 Eos % (Auto) 0.0 % 09/12/23 07:30 Baso % (Auto) 0.8 % 09/12/23 07:30 Neut # (Auto) 2.80 10^3/uL (1.8-7.7) 09/12/23 07:30 Lymph # (Auto) 0.5 10^3/uL (0.8-4.8) L 09/12/23 07:30 [place] # (Auto) 0.5 10^3/uL (0.2-0.9) 09/12/23 07:30 Eos # (Auto) 0.0 10^3/uL (0.0-0.8) 09/12/23 07:30 Baso # (Auto) 0.0 10^3/uL (0.0-0.1) 09/12/23 07:30 Nucleated RBC % (auto) 0 % 09/12/23 07:30 Nucleated RBCs # 0.0 /100WBC 09/12/23 07:30 Specimen Type Arterial 09/12/23 06:55 Sample Site Brachial, left 09/12/23 06:55 ABG pH 7.45 (7.35-7.45) 09/12/23 06:55 ABG pCO2 37.7 mmHg (35-45) 09/12/23 06:55 ABG pO2 49.9 mmHg (80.0-100.0) L 09/12/23 06:55 ABG HCO3 26.1 mmol/L (22-26) H 09/12/23 06:55 ABG O2 Saturation 84.4 09/12/23 06:55 ABG Base Excess 2.1 mmol/L (-2.0-2.0) H 09/12/23 06:55 Collins Test N/a 09/12/23 06:55 A-a O2 Gradient 7.0 mmHg (5-10) 09/12/23 06:55 Hematocrit 32.5 % (42-52) L 09/12/23 06:55 Hgb O2 Saturation 83.0 % (95-100) L 09/12/23 06:55 Carboxyhemoglobin 1.3 %THgb (0.4-20.1) 09/12/23 06:55 Methemoglobin 0.5 % (0.4-1.5) 09/12/23 06:55 Total Hemoglobin 10.6 g/dL (14-18) L 09/12/23 06:55 Sodium 124.0 mmol/L (131-143) L 09/12/23 06:55 Potassium 4.6 mmol/L (3.5-5.0) 09/12/23 06:55 Glucose 301.0 mg/dL (70-115) H 09/12/23 06:55 Ionized Calcium 1.0 mmol/L (1.1-1.4) L 09/12/23 06:55 O2 Delivery Device Nrb 09/12/23 06:55 Product Assurance Engineer ID Broma 09/12/23 06:55 Sodium 129 mmol/L (136-145) L 09/12/23 07:30 Potassium 4.6 mmol/L (3.5-5.1) 09/12/23 07:30 Chloride 94 mmol/L (98-107) L 09/12/23 07:30 Carbon Dioxide 24 mmol/L (22-29) 09/12/23 07:30 Anion Gap 15.6 (5-19) 09/12/23 07:30 BUN 33 mg/dL (8-23) H 09/12/23 07:30 Creatinine 0.4 mg/dL (0.7-1.2) L 09/12/23 07:30 GFR Calculation 217.3 mL/min (90-130) H 09/12/23 07:30 Glucose 121 mg/dL (65-115) H 09/12/23 07:30 POC Glucose 76 mg/dL (70-110) 09/12/23 09:02 Calculated Osmolality 277 mOsm/kg (285-295) L 09/12/23 07:30 Calcium 7.0 mg/dL (8.5-10.5) L 09/12/23 07:30 Total Bilirubin 2.2 mg/dL (0.15-1.2) H 09/12/23 07:30 AST 177 U/L (0-40) H 09/12/23 07:30 ALT 71 U/L (0-41) H 09/12/23 07:30 Alkaline Phosphatase 818 U/L (40-130) H 09/12/23 07:30 Total Protein 4.9 g/dL (6.6-8.7) L 09/12/23 07:30 Albumin 2.3 g/dL (3.5-5.2) L 09/12/23 07:30 Globulin 2.6 g/dL (1.3-4.6) 09/12/23 07:30 All radiology interpretation(s) finalized by discharge Discharge Plan Discharge Clinical Impression: Metastatic colon cancer to liver, Hypoglycemia Opiate overdose Qualifiers: Encounter type: initial encounter Injury intent: accidental or unintentional Q ualified Code(s): T40.601A - Poisoning by unspecified narcotics, accidental (unintentional), initial encounter Condition: Stable Prescriptions: No Action (DME) ostomy supplies See Rx Instructions .Route .MEDSUPPLY Qty: 1 10RF Rx Instructions: As directed (DME) Home self urinary straight cath kid See Rx Instructions .Route .MEDSUPPLY Qty: 1 3RF Rx Instructions: As directed lactulose 20 gram/30 mL solution 20 g PO .COMPLEX MDD 180 ml PRN (Reason: constipation) Qty: 1200 1RF Rx Instructions: 20 grams orally 30 ml Q 2 hours until bowel movement.; PRN; lidocaine [AsperFlex (lidocaine)] 4 % adhesive patch,medicated 1 patch topical BID PRN (Reason: pain) Qty: 30 0RF Rx Instructions: may leave on for up to 12 hrs fluticasone propionate [Flonase Allergy Relief] 50 mcg/actuation spray,suspension 2 spray intranasal BID Qty: 16 0RF Rx Instructions: administer into each nostril cetirizine [Zyrtec] 10 mg tablet 10 mg PO DAILY Qty: 30 0RF meclizine 25 mg tablet 25 mg PO TID PRN (Reason: dizziness) Qty: 60 0RF fluconazole 150 mg tablet 150 mg PO .weekly 56 Days Qty: 8 0RF clotrimazole 10 mg jordan 10 mg mucous membrane TID Qty: 90 0RF naloxone 4 mg/actuation spray,non-aerosol 4 mg intranasal Q2M PRN (Reason: overdose) Rx Instructions: spray 1 dose into ONE nostril; alternate nostrils w each dose until help arrives (DME) colostomy bags See Rx Instructions .Route .MEDSUPPLY Qty: 30 3RF Rx Instructions: As directed Relistor 8 mg/0.4 mL syringe 8 mg SUBCUT DAILY Qty: 2.8 3RF ondansetron 4 mg tablet,disintegrating 4 mg PO Q6H PRN (Reason: Nausea) Qty: 30 3RF famotidine 20 mg tablet 20 mg PO BID Qty: 60 2RF megestrol 400 mg/10 mL (10 mL) suspension 400 mg PO DAILY Qty: 400 0RF dexamethasone 0.5 mg/5 mL solution 1 mg PO QID Qty: 500 0RF Rx Instructions: swish for 2 minutes then spit. Do not eat/drink for 1 hr after use pantoprazole [Protonix] 40 mg tablet,delayed release (DR/EC) 40 mg PO DAILY Qty: 30 0RF metoprolol tartrate 25 mg tablet 25 mg PO BID Qty: 60 1RF morphine concentrate 100 mg/5 mL (20 mg/mL) solution 30 mg PO Q2H PRN (Reason: pain) 14 Days Qty: 240 0RF Movantik 12.5 mg tablet 12.5 mg PO QAM Qty: 10 0RF Rx Instructions: must be taken on empty stomach; no food 1 hr after or 2-3 hrs before dose cholecalciferol (vitamin D3) 1,250 mcg (50,000 unit) capsule 50,000 unit PO .weekly Qty: 6 0RF furosemide 40 mg tablet 40 mg PO DAILY Qty: 30 2RF lidocaine HCl [Lidocaine Viscous] 2 % solution 5 ml mucous membrane Q6H PRN (Reason: pain) Qty: 100 0RF Rx Instructions: add Maalox 100ml and simethicone 100ml, swish and swallow lubiprostone 24 mcg capsule 24 mcg PO BID Referrals: Crescencio Sotomayor MD [Primary Care Provider] - Patient Instructions: Altered Mental Status (ED) Coding Level of Care Code ED Mental Health Coordinator for Ondina Lau
[2023-09-12 07:06] LABS: ABG PCO2 37.7 mmHg (35-45); ABG PH Result 7.45 (7.35-7.45); Arterial Blood Gas Hematocrit 32.5 % (42-52); Base Excess ABG 2.1 mmol/L (-2.0-2.0); Blood Gas Operator Identificat BROMA; Blood Gas Sample Site Brachial, left; Blood Gas Sample Type Arterial; Carboxyhemoglobin 1.3 %THgb (0.4-20.1); HCO3 ABG 26.1 mmol/L (22-26); Methemoglobin 0.5 % (0.4-1.5); Oxygen Device NRB; Oxygen Saturation ABG 84.4; PO2 ABG 49.9 mmHg (80.0-100.0); Potassium Level - ABG 4.6 mmol/L (3.5-5.0); Total Hemoglobin 10.6 g/dL (14-18)
[2023-09-12] MEDS: dextrose 50% syringe 50 mL (07:06)
[2023-09-12] MEDS: naloxone 0.4 mg/ml SDV 0.8 MG (07:07)
[2023-09-12] MEDS: morphine 4 mg/mL SDV 1 mL 2 MG IVP (07:38)
[2023-09-12] MEDS: lactated ringers 1,000 ML 999 ML IV (07:38)
[2023-09-12 07:46] LABS: Basophils % 0.8 %; Hematocrit 30.1 % (37-53); Lymphocytes # 0.5 10^3/uL (0.8-4.8); Lymphocytes % 13.5 %; Mean Corpuscular HGB Conc 33.9 g/dL (30-55); Mean Corpuscular Hemoglobin 29.8 pg (27-33); Mean Platelet Volume 10.7 fL (7.4-10.4); Monocytes # 0.5 10^3/uL (0.2-0.9); Monocytes % 12.2 %; Neutrophils % 72.5 %; Nucleated Red Blood Cells % 0 %; Platelet Count 154 10^3/cmm (157-399); Red Blood Count 3.42 10^6/uL (3.85-5.65); Red Cell Distribution Width 17.5 % (12.1-15.1); White Blood Count 3.86 10^3/uL (3.29-11.43)
[2023-09-12 08:10] LABS: Alanine Aminotransferase 71 U/L (0-41); Albumin Level 2.3 g/dL (3.5-5.2); Alkaline Phosphatase 818 U/L (40-130); Anion Gap 15.6 (5-19); Aspartate Amino Transferase 177 U/L (0-40); Blood Urea Nitrogen 33 mg/dL (8-23); Carbon Dioxide 24 mmol/L (22-29); Chloride 94 mmol/L (98-107); Globulin 2.6 g/dL (1.3-4.6); Glomerular Filtration Rate 217.3 mL/min (90-130); Glucose 121 mg/dL (65-115); Osmolality Calculated 277 mOsm/kg (285-295); Potassium 4.6 mmol/L (3.5-5.1); Sodium 129 mmol/L (136-145); Total Bilirubin 2.2 mg/dL (0.15-1.2); Total Protein 4.9 g/dL (6.6-8.7)
[2023-09-12 08:20] LABS: Glucose Point of Care 40 mg/dL (70-110)
[2023-09-12 09:06] LABS: Glucose Point of Care 76 mg/dL (70-110)
[2023-09-12 09:39] LABS: Creatinine Clr Calc Pharmacy 97.0173
--- NOTE | 2023-09-12 10:04 | CTR_ITS ---
PROCEDURE INFORMATION: Exam: CT Abdomen And Pelvis With Contrast Exam date and time: 09/12/2023 10:30 AM Age: 62 years old Clinical indication: Abdominal tenderness and bloating; Additional info: Biliary exam TECHNIQUE: Imaging protocol: Computed tomography of the abdomen and pelvis with contrast. Radiation optimization: All CT scans at this facility use at least one of these dose optimization techniques: automated exposure control; mA and/or kV adjustment per patient size (includes targeted exams where dose is matched to clinical indication); or iterative reconstruction. Contrast material: OMNIPAQUE 350; Contrast volume: 70 ml; Contrast route: INTRAVENOUS (IV); COMPARISON: CT abdomen pelvis w con* [id number] 07/20/2023 10:08 AM RADIATION DOSE METRICS: Total DLP (mGy-cm): 389.18 FINDINGS: Lungs: There is partially imaged suspected pneumonitis involving the superior right middle lobe. Liver: There are large metastatic lesions to the liver which appear to be worse on today's exam when compared to prior exam. No intrahepatic biliary ductal dilatation is seen. There is mass effect on the portal vein however, the portal vein appears to be patent. Gallbladder and biliary ducts: No gallstones are appreciated. Pancreas: Normal. No ductal dilation. Spleen: There is diffuse low-density involving the spleen however the spleen does not appear to be particularly expanded. The splenic vein appears to be thrombosed and decreased density involving the spleen is likely vascular related and not related to tumor infiltration. Adrenal glands: Normal. No mass. Kidneys and ureters: Normal. No hydronephrosis. Stomach and bowel: There is a large mass involving the rectosigmoid colon slightly improved to that seen on prior exam. No dilated loops of large or small bowel is appreciated. There is a left mid abdomen colostomy. Appendix: The appendix is not definitely identified. Intraperitoneal space: There is large volume ascites. Vasculature: The aorta is normal in caliber. There is calcified plaque involving the aorta and its branch vessels. Lymph nodes: Multiple soft tissue nodules are seen adjacent to the rectum and sigmoid colon likely representing either direct extension of tumor or enlarged nodes. These appear to be slightly improved on today's exam. Enlarged periportal lymph nodes are similar to that seen on prior exam. Urinary bladder: Unremarkable as visualized. Reproductive: Unremarkable as visualized. Bones/joints: Unremarkable. No acute fracture. Soft tissues: Unremarkable. CT/CT abdomen pelvis w con* [id number] IMPRESSION: 1. Partially imaged suspected pneumonitis involving the superior right middle lobe. 2. Large mass involving the rectosigmoid colon with surrounding nodularity within the perirectal fat. Overall, there appears to be slight interval improvement in this regard when compared to prior exam. 3. Metastatic disease to the liver worse on today's exam. 4. Large periportal lymph nodes not appreciably changed. 5. Decreased density to the spleen. 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 6. Large volume ascites.
[2023-09-12] MEDS: iohexol 350 mg/mL 500 mL Btl (per mL) IV (10:34)
--- NOTE | 2023-09-12 13:00 | P.HP_ITS ---
Providers/Chief Complaint 2 Admitting Physician: Beatriz Galeano MD Primary Care Provider: Crescencio Sotomayor MD Chief Complaint: UNRESPONSIVE History of Present Illness Kavitha Dunlap is a 62 year old male with poorly differentiated adenocarcinoma of the sigmoid colon with diffuse metastases involving the liver. He has a fungating mass approximately 78 cm from the anal verge. He underwent placement of a diverting ostomy and began palliative radiation on March 11, 2023. He has been having serially increasing mass and metastases on CT abdomen and pelvis. He is currently on chemotherapy with FOLFIRI with panitumumab. He presents to the emergency room today due to complaints of increasing generalized weakness, fatigue, inability to carry out his ADLs. He was very difficult to awaken this morning. His checked his blood sugar at home and this was noted to be down in the 20s. He received dextrose via EMS, came to the ER where he continued to be poorly responsive. There was concern for opiate overdose as he takes morphine at home and he received Narcan. After the Narcan patient was keenly alert awake and oriented. He is being admitted to the hospital in view of hypoglycemia and optimization of pain management. He is noted to have worsened LFTs including doubled alkaline phosphatase, AST ALT much worse over previously. CT of the chest abdomen and pelvis was performed today which did not show any clear evidence of biliary obstruction, however did show progressively increasing diffuse metastases. Review of Systems 2 General: Reports: 10 or more systems reviewed and unremarkable except in HPI and below Const: Denies: fever(s), chills or body aches Eyes: Denies: change in vision, blurry vision or photophobia ENMT: Reports: hoarseness; Denies: throat pain, enlarged tonsils, odynophagia or nasal congestion Card: Denies: chest pain, palpitations, irregular heart rhythm, edema, swelling of feet/ankles, lightheadedness, pre-syncope, dyspnea on exertion or orthopnea Resp: Denies: dyspnea, productive cough, non-productive cough, wheezing, stridor, pain on inspiration, change in phlegm color, hemoptysis or chest congestion GI: Denies: abdominal pain, nausea, vomiting, hematemesis, coffee ground emesis, dysphagia, heartburn, diarrhea, constipation, GI cramping, change in stool character, hematochezia or melena : Denies: flank pain, dysuria, urinary frequency, urinary urgency, urinary hesitancy or hematuria Musc: Denies: neck pain, back pain, extremity pain, joint swelling, joint warmth or deformity Neuro: Denies: headache(s), numbness in extremities, weakness in extremities, sensory changes, difficulty walking, frequent falls, dizziness, vertigo, behavioral changes, Slurred speech present or seizure-like activity Psych: Denies: anxiety, depression, suicidal ideation or homicidal ideation Endo: Denies: polyuria, polydipsia, tired all the time, cold intolerance or hot flashes Russ/Lymph: Denies: easy bruising or easy bleeding Medications/Allergies Home Medications Medication Instructions Recorded Confirmed Last Taken Type colostomy bags #30 ea 03/05/23 09/10/23 Unknown Rx naloxone 4 mg/actuation nasal spray 4 mg intranasal Q2M PRN overdose 03/05/23 09/10/23 09/07/23 History ostomy supplies #1 ea 03/12/23 09/10/23 Unknown Rx Home self urinary straight cath kid #1 ea 04/05/23 09/10/23 Unknown Rx lactulose 20 gram/30 mL oral 20 g (30 mL) PO .COMPLEX PRN 05/19/23 09/10/23 09/07/23 Rx solution constipation #1,200 mL pantoprazole 40 mg tablet,delayed 40 mg PO DAILY #30 tabs 05/26/23 09/10/23 09/07/23 Rx release (Protonix) metoprolol tartrate 25 mg tablet 25 mg PO BID #60 tabs 07/27/23 09/10/23 09/07/23 Rx morphine concentrate 100 mg/5 mL 30 mg (1.5 mL) PO Q2H PRN pain 14 08/04/23 09/10/23 09/09/23 Rx (20 mg/mL) oral solution days #240 mL methylnaltrexone 8 mg/0.4 mL 8 mg (0.4 mL) SUBCUT DAILY opioid 08/16/23 09/10/23 09/07/23 Rx subcutaneous syringe (Relistor) induced constipation related to cancer pain #2.8 mL ondansetron 4 mg disintegrating 4 mg PO Q6H PRN Nausea #30 tabs 08/16/23 09/10/23 09/07/23 Rx tablet lubiprostone 24 mcg capsule 24 mcg PO BID 08/18/23 09/10/23 09/07/23 History naloxegol 12.5 mg tablet (Movantik) 12.5 mg PO QAM #10 tabs 08/18/23 09/10/23 09/07/23 Rx cholecalciferol (vitamin D3) 1,250 50,000 unit PO .weekly #6 caps 08/31/23 09/10/23 09/07/23 Rx mcg (50,000 unit) capsule furosemide 40 mg tablet 40 mg PO DAILY #30 tabs 09/03/23 09/10/23 09/07/23 Rx famotidine 20 mg tablet 20 mg PO BID #60 tabs 09/06/23 09/10/23 09/07/23 Rx megestrol 400 mg/10 mL (10 mL) 400 mg (10 mL) PO DAILY #400 mL 09/06/23 09/10/23 09/07/23 Rx oral suspension dexamethasone 0.5 mg/5 mL oral 1 mg (10 mL) PO QID #500 mL 09/07/23 09/10/23 09/08/23 Rx solution lidocaine HCl 2 % mucosal solution 5 ml mucous membrane Q6H PRN pain 09/09/23 09/10/23 Unknown Rx (Lidocaine Viscous) #100 mL cetirizine 10 mg tablet (Zyrtec) 10 mg PO DAILY #30 tabs 09/10/23 09/10/23 Unknown Rx clotrimazole 10 mg jordan 10 mg mucous membrane TID #90 tabs 09/10/23 09/10/23 Unknown Rx fluconazole 150 mg tablet 150 mg PO .weekly 8 weeks #8 tabs 09/10/23 09/10/23 Unknown Rx fluticasone propionate 50 2 spray intranasal BID #16 grams 09/10/23 09/10/23 Unknown Rx mcg/actuation nasal spray,suspension (Flonase Allergy Relief) lidocaine 4 % topical patch 1 patch topical BID PRN pain #30 ea 09/10/23 09/10/23 Unknown Rx (AsperFlex (lidocaine)) meclizine 25 mg tablet 25 mg PO TID PRN dizziness #60 tabs 09/10/23 09/10/23 Unknown Rx Allergies Allergy/AdvReac Type Severity Reaction Status Date / Time tamsulosin Allergy Mild Unknown Verified 09/10/23 14:32 codeine Allergy ADR-Itching Verified 09/10/23 14:32 Latex, Natural Rubber Allergy ADR-Itching Verified 09/10/23 14:32 PFSH Acute 2 PFSH: Medical History GERD (gastroesophageal reflux disease) Adenocarcinoma of sigmoid colon Metastases to the liver Lumbar stenosis with neurogenic claudication Constipation Tobacco dependence Surgical History History of liver biopsy (01/13/23) Ultrasound directed liver biopsy History of colostomy (03/01/23) Placement of diverting colostomy and placement of Port-A-Cath venous access device Hx of shoulder surgery Hx of knee surgery Family History Father Cancer lung Mother Cancer colon Denies family history of Liver disease Diabetes CAD (coronary artery disease) Aneurysm Clotting disorder Dementia Depression Hyperlipidemia Hyperthyroidism Hypothyroidism Psychiatric illness Chronic kidney disease (CKD) Anesthesia complication Bleeding disorder Lung disease Hypertension Stroke Social History Smoking and tobacco/nicotine status: unknown if used tobacco/nicotine Alcohol intake: former Substance/Drug Use: former Date of last use: not currently, many moons before Lives independently: Yes Marital status: Number of children: 2 Current occupational status: disabled Special lacie needs: No Agree to transfusion: Yes Vitals/I&O/Wt Last Vital Signs Pulse 90 09/12/23 17:15 Resp 16 09/12/23 16:44 BP 112/81 09/12/23 16:44 Pulse Ox 100 09/12/23 17:15 O2 Del Method Nasal Cannula 09/12/23 17:15 O2 Flow Rate 3 09/12/23 17:15 09/12/23 09/12/23 09/12/23 06:59 14:59 22:59 Intake Total 1000 / 1000 Balance 1000 / 1000 Weight last 48 hrs Weight 36.287 kg Physical Exam 2 Narrative: General: No acute distress, AO x3 severely cachectic. BMI of only 11. HEENT: PERRLA, pupils bilaterally equal and reactive, pallors not present Chest: Normal vesicular breath sounds, no added sounds, equal good air entry bilaterally CVS: S1-S2 regular, no murmurs, no tachycardia, no gallops, no rubs Abdomen: Soft, nontender. Ostomy in place. Neuro: No focal deficits, no facial deformity, AO x3, power 5/5 in all limbs Data 09/12/23 07:30 09/12/23 07:30 Other Labs: Radiology Impressions Chest X-Ray 09/12/23 07:01 IMPRESSION: 1. No acute cardiopulmonary findings. Abdomen/Pelvis CT 09/12/23 10:04 IMPRESSION: 1. Partially imaged suspected pneumonitis involving the superior right middle lobe. 2. Large mass involving the rectosigmoid colon with surrounding nodularity within the perirectal fat. Overall, there appears to be slight interval improvement in this regard when compared to prior exam. 3. Metastatic disease to the liver worse on today's exam. 4. Large periportal lymph nodes not appreciably changed. 5. Decreased density to the spleen. 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 6. Large volume ascites. ADDENDUM: 09/12/23 1104 COMMENT: THIS REPORT CONTAINS FINDINGS THAT MAY BE CRITICAL TO PATIENT CARE. The exam findings were verbally communicated by me to MILTON COSBY via telephone conference at 11:01 AM CDT on 09/12/2023. The findings were acknowledged and understood. Laboratory Results WBC 3.86 10^3/uL (3.29-11.43) 09/12/23 07:30 RBC 3.42 10^6/uL (3.85-5.65) L 09/12/23 07:30 Hgb 10.20 g/dL (11.27-16.99) L 09/12/23 07:30 Hct 30.1 % (37-53) L 09/12/23 07:30 MCV 88.0 fl (82-101) 09/12/23 07:30 MCH 29.8 pg (27-33) 09/12/23 07:30 MCHC 33.9 g/dL (30-55) 09/12/23 07:30 RDW 17.5 % (12.1-15.1) H 09/12/23 07:30 Plt Count 154 10^3/cmm (157-399) L 09/12/23 07:30 MPV 10.7 fL (7.4-10.4) H 09/12/23 07:30 Neut % (Auto) 72.5 % 09/12/23 07:30 Lymph % (Auto) 13.5 % 09/12/23 07:30 Kings % (Auto) 12.2 % 09/12/23 07:30 Eos % (Auto) 0.0 % 09/12/23 07:30 Baso % (Auto) 0.8 % 09/12/23 07:30 Neut # (Auto) 2.80 10^3/uL (1.8-7.7) 09/12/23 07:30 Lymph # (Auto) 0.5 10^3/uL (0.8-4.8) L 09/12/23 07:30 Kings # (Auto) 0.5 10^3/uL (0.2-0.9) 09/12/23 07:30 Eos # (Auto) 0.0 10^3/uL (0.0-0.8) 09/12/23 07:30 Baso # (Auto) 0.0 10^3/uL (0.0-0.1) 09/12/23 07:30 Nucleated RBC % (auto) 0 % 09/12/23 07:30 Nucleated RBCs # 0.0 /100WBC 09/12/23 07:30 Specimen Type Arterial 09/12/23 06:55 Sample Site Brachial, left 09/12/23 06:55 ABG pH 7.45 (7.35-7.45) 09/12/23 06:55 ABG pCO2 37.7 mmHg (35-45) 09/12/23 06:55 ABG pO2 49.9 mmHg (80.0-100.0) L 09/12/23 06:55 ABG HCO3 26.1 mmol/L (22-26) H 09/12/23 06:55 ABG O2 Saturation 84.4 09/12/23 06:55 ABG Base Excess 2.1 mmol/L (-2.0-2.0) H 09/12/23 06:55 Collins Test N/a 09/12/23 06:55 A-a O2 Gradient 7.0 mmHg (5-10) 09/12/23 06:55 Hematocrit 32.5 % (42-52) L 09/12/23 06:55 Hgb O2 Saturation 83.0 % (95-100) L 09/12/23 06:55 Carboxyhemoglobin 1.3 %THgb (0.4-20.1) 09/12/23 06:55 Methemoglobin 0.5 % (0.4-1.5) 09/12/23 06:55 Total Hemoglobin 10.6 g/dL (14-18) L 09/12/23 06:55 Sodium 124.0 mmol/L (131-143) L 09/12/23 06:55 Potassium 4.6 mmol/L (3.5-5.0) 09/12/23 06:55 Glucose 301.0 mg/dL (70-115) H 09/12/23 06:55 Ionized Calcium 1.0 mmol/L (1.1-1.4) L 09/12/23 06:55 O2 Delivery Device Nrb 09/12/23 06:55 Licensed Nursing Assistant ID Broma 09/12/23 06:55 Sodium 129 mmol/L (136-145) L 09/12/23 07:30 Potassium 4.6 mmol/L (3.5-5.1) 09/12/23 07:30 Chloride 94 mmol/L (98-107) L 09/12/23 07:30 Carbon Dioxide 24 mmol/L (22-29) 09/12/23 07:30 Anion Gap 15.6 (5-19) 09/12/23 07:30 BUN 33 mg/dL (8-23) H 09/12/23 07:30 Creatinine 0.4 mg/dL (0.7-1.2) L 09/12/23 07:30 GFR Calculation 217.3 mL/min (90-130) H 09/12/23 07:30 Glucose 121 mg/dL (65-115) H 09/12/23 07:30 POC Glucose 35 mg/dL (70-110) L* 09/12/23 18:24 Calculated Osmolality 277 mOsm/kg (285-295) L 09/12/23 07:30 Calcium 7.0 mg/dL (8.5-10.5) L 09/12/23 07:30 Total Bilirubin 2.2 mg/dL (0.15-1.2) H 09/12/23 07:30 AST 177 U/L (0-40) H 09/12/23 07:30 ALT 71 U/L (0-41) H 09/12/23 07:30 Alkaline Phosphatase 818 U/L (40-130) H 09/12/23 07:30 Total Protein 4.9 g/dL (6.6-8.7) L 09/12/23 07:30 Albumin 2.3 g/dL (3.5-5.2) L 09/12/23 07:30 Globulin 2.6 g/dL (1.3-4.6) 09/12/23 07:30 A&P Assessment and plan (1) Hypoglycemia: (2) Jaundice: (3) Colorectal cancer: (4) Opiate overdose: Qualifiers: Encounter type: initial encounter Injury intent: accidental or unintentional Qualified Code(s): T40.601A - Poisoning by unspecified narcotics, accidental (unintentional), initial encounter (5) Cancer cachexia: (6) Mucositis: Plan 62-year-old male with advanced colorectal cancer, diffuse metastases which is worsening on the most recent CT today. LFTs much worse than before. Currently presenting with generalized weakness, hypoglycemia, altered mental status which resolved after administration of dextrose and Narcan. Overall noted to have diffuse cachexia, likely cancer cachexia. Plan: Start patient on IV fluids D5 normal saline to maintain his blood sugar. Dysphagia 4 diet. states patient has been having increasing difficulty swallowing. Discussed with her that this may be related to advancing cancer. Discussed extensively goals of care with patient and his at bedside. Patient is not yet ready to be hospice/palliative care. He states that he wants to talk to Dr. Coburn. He had a scheduled appointment tomorrow, however he is going to be unable to make this appointment. Wishes to know his oncologist opinion with regards to next steps and if further chemotherapy is an option. If no further chemotherapeutic options are available, he may consider transition to hospice care. We will need to discuss with his oncologist on Wednesday morning. (Today is Wednesday). In the interim continue IV fluids to maintain blood sugar. Every hour Accu-Cheks. Morphine 2 mg IV every 6 hours as needed for pain management. Patient typically takes morphine oral 30 mg every 2 hours as needed at home. Will reduced his dose to 15 mg p.o. every 6 hours as needed for pain management. Add dexamethasone 6 mg IV every 4 hours for cancer cachexia. Magic mouthwash and nystatin swish and swallow for severe mucositis. Speech therapy assessment. Attestations 2 Medical Necessity Statement*: Greater than 2 midnight admission is anticipated Coding Level of Care Code Acute Code for Chg Fwd High MDM includes number and complexity of problems actively addressed during encounter, amount and/or complexity of data reviewed/ordered and described risk of complication, morbidity or mortality of management as documented Diagnoses Hypoglycemia E16.2 Jaundice R17 Colorectal cancer C19 Opiate overdose T40.601A Encounter type: initial encounter Injury intent: accidental or unintentional Cancer cachexia R64 Mucositis K12.30
[2023-09-12] MEDS: morphine 4 mg/mL SDV 1 mL IVP (14:05)
--- OUTSIDE RECORDS SUMMARY | 2023-09-12 15:19 | XMS_ITS | Patient Health Record ---
Author Name Unknown Organization [facility] Address [address] [place] [address] Care Team Providers Care Certified Medical Biller Name Role Phone Tali Rapp Primary Care Provider TALI RAPP Unavailable Unavailable Allergies Allergen (clinical drug ingredient) Drug/Non Drug Allergy documented on EMR Reaction Allergy Type Onset Date Status codeine Codeine Unknown Drug Allergy Active Results Component Value Reference Range Notes MRI Lumbar Spine w/o Cont-[id number] Reviewed date:11/12/2022 09:48:53 AM Interpretation: Performing Lab: Notes/Report: Reason For Referral Reason Chronic lumbar pain with sciatica bilt Diagnosis 1 Sciatica associated with disorder of lumbosacral spine (M53.9) Referral Organization [facility] Referring Provider First Name Tali Referring Provider Last Name Dionte Referring Provider Speciality Nurse Ishaan estevez Referred Provider harpal palacio Referral Priority Routine Medications Medication SIG (Take, Route, Frequency, Duration) Notes Start Date End Date Status Aleve 220 MG 1 tablet with food o r milk as needed Orally every 12 hrs Active Cyclobenzaprine HCl 10 MG 1 tablet Orall y Three times a day 10/15/2022 Active traMADol HCl 50 MG 1 tablet as needed O rally Three times a day 10/15/2022 Active Social History Tobacco Use: Social History Observation Description Date Details (start date - stop date) Current Smoker NA - NA xTobacco Use/Smoking Question Answer Notes Are you a current smoker How often do you smoke cigarettes? every day How many cigarettes a day do you smoke? 11-20 Alcohol Screen (Audit-C) Question Answer Notes Did you have a drink containing alcohol in the p ast year? No Points 0 Interpretation Negative PHQ-9 Question Answer Notes Little interest or pleasure in doing things Not at all Feeling down, depressed, or hopeless Not at all Trouble falling or staying asleep, or sleeping t oo much Not at all Feeling tired or having little energy Not at all Poor appetite or overeating Not at all Feeling bad about yourself, or that you are a failure, or have let yourself or your family down Not at all Trouble concentrating on thi ngs, such as reading the newspaper or watching television Not at all Moving or speaking so slowly that other people could have noticed. Or the opposite ? being so fidgety or restless that you have been moving around a lot more than usual Not at all Thoughts that you would be b marvin off , or of hurting yourself in some way Not at all Total Score 0 Problems Problem Type SNOMED Code ICD Code Onset Dates Problem Status W/U Status Risk Notes Problem Lumbosacral pain (M54.50) Active confirmed Vital Signs Heart Rate 82 /min 10/15/2022 back pain Temperature 97.7 degrees Fahrenheit 10/15/2022 back pain Respiratory Rate 20 /min 10/15/2022 back pain Blood pressure diastolic 72 mm Hg 10/15/2022 enmanuel k pain Oximetry 100 % 10/15/2022 back pain Height-cm 177.8 cm 10/15/2022 back pain Weight-kg 63.05 kg 10/15/2022 back pain Height 70 in 10/15/2022 back pain Blood pressure systolic 118 mm Hg 10/15/2022 back pain Weight 139 lbs 10/15/2022 back pain BMI 19.94 kg/m2 10/15/2022 back pain Encounters Encounter Location Date Provider Diagnosis [facility] [address] [address] 10/15/2022 Tali Rapp Sciatica associated with disorder of lumbosacral spine M53.9 and Lumbosacral pain M54.50 [facility] [address] [facility] [address] [place] [address] 10/15/2022 [facility] [address] [facility] [address] [place] [address] 10/29/2022 Tali Rapp [facility] [address] 12/02/[address] [address] 12/03/[address] [address] 12/07/2022 Tali [facility] Assessments Encounter Date Diagnosis (ICD Code) Assessment Notes Treatment Notes Treatment Clinical Notes 10/15/2022 Sciatica associated with disorder of lumbosacral spine (ICD-10 - M53.9) 10/15/2022 Lumbosacral pain (ICD-10 - M54.50) Pt will go to [place], [place] for MRI due to needing open MRI. Plan Of Treatment No Information Medical (General) History Surgical History Surgery Date(Month/Year) shoulder surgery knee surgery
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
--- NOTE | 2023-09-12 16:44 | PC.NURSE ---
Patient transferred to CSU from ED via a bed at 1650.
[2023-09-12 17:48] LABS: Glucose Point of Care 26 mg/dL (70-110)
--- NOTE | 2023-09-12 17:53 | PC.NURSE ---
Provider is notified of blood sugar of 26, patient is still A/O x 4. Orders given for glucogon 1 IM now, and dextrose 10% 250ml.
[2023-09-12] MEDS: glucagon 1 mg/mL KIT 1 mL IM (18:00)
[2023-09-12] MEDS: D5-NS 0.45% + KCL 20 mEq 20 MEQ/1,000 ML BAG 75 MEQ IV (18:09)
[2023-09-12 18:28] LABS: Glucose Point of Care 23 mg/dL (70-110)
[2023-09-12 18:28] LABS: Glucose Point of Care 35 mg/dL (70-110)
[2023-09-12] MEDS: dextrose 10% 250 ML 1000 ML IV (18:32)
[2023-09-12 19:10] LABS: Glucose Point of Care 94 mg/dL (70-110)
[2023-09-12] MEDS: pantoprazole 40 mg SDV IVP (19:13)
[2023-09-12 19:36] LABS: Glucose Point of Care 63 mg/dL (70-110)
[2023-09-12] MEDS: dextrose 10% 250 ML IV (20:06)
[2023-09-12] MEDS: heparin 5,000 unit/mL INJ 1 mL 5000 UNIT SUBCUT (20:25)
[2023-09-12 20:56] LABS: Glucose Point of Care 136 mg/dL (70-110)
[2023-09-12] MEDS: nystatin 100,000 unit/mL UDC 5 mL 500000 UNIT PO (21:07)
[2023-09-12] MEDS: dexamethasone 4 mg/mL INJ IVP (21:07)
[2023-09-12 21:48] LABS: Glucose Point of Care 135 mg/dL (70-110)
[2023-09-12 22:46] LABS: Glucose Point of Care 122 mg/dL (70-110)
[2023-09-12 23:46] LABS: Glucose Point of Care 103 mg/dL (70-110)
[2023-09-13] VITALS (17 sets, daily range): BP systolic 99–108; BP diastolic 75–85; PULSE 76–116; RESP 10–24; TEMP 34.5–36.6; O2SAT 90–100
[2023-09-13 00:45] LABS: Glucose Point of Care 101 mg/dL (70-110)
[2023-09-13 01:42] LABS: Glucose Point of Care 91 mg/dL (70-110)
[2023-09-13] MEDS: dexamethasone 4 mg/mL INJ IVP (02:36)
[2023-09-13] MEDS: morphine 4 mg/mL SDV 1 mL 2 MG IVP ×4 (02:43→23:05)
[2023-09-13 02:56] LABS: Glucose Point of Care 93 mg/dL (70-110)
[2023-09-13 03:39] LABS: Glucose Point of Care 103 mg/dL (70-110)
[2023-09-13] MEDS: pantoprazole 40 mg SDV IVP ×2 (04:18→16:19)
[2023-09-13] MEDS: heparin 5,000 unit/mL INJ 1 mL 5000 UNIT SUBCUT ×2 (04:18→16:19)
[2023-09-13] MEDS: morphine IR 15 mg Tablet PO ×3 (04:28→20:15)
[2023-09-13 05:01] LABS: Glucose Point of Care 85 mg/dL (70-110)
[2023-09-13 06:00] LABS: Glucose Point of Care 80 mg/dL (70-110)
[2023-09-13] MEDS: D5-NS 0.45% + KCL 20 mEq 20 MEQ/1,000 ML BAG 75 MEQ IV ×2 (06:29→19:12)
[2023-09-13 06:54] LABS: Glucose Point of Care 88 mg/dL (70-110)
[2023-09-13 07:37] LABS: Basophils # 0.1 10^3/uL (0.0-0.1); Basophils % 1.2 %; Hematocrit 30.8 % (37-53); Lymphocytes # 0.4 10^3/uL (0.8-4.8); Lymphocytes % 5.8 %; Mean Corpuscular HGB Conc 34.4 g/dL (30-55); Mean Corpuscular Hemoglobin 29.9 pg (27-33); Mean Platelet Volume 10.6 fL (7.4-10.4); Monocytes # 0.5 10^3/uL (0.2-0.9); Monocytes % 7.4 %; Neutrophils # 5.14 10^3/uL (1.8-7.7); Neutrophils % 84.4 %; Nucleated Red Blood Cells % 0 %; Platelet Count 106 10^3/cmm (157-399); Red Blood Count 3.54 10^6/uL (3.85-5.65); Red Cell Distribution Width 17.6 % (12.1-15.1); White Blood Count 6.08 10^3/uL (3.29-11.43)
--- NOTE | 2023-09-13 07:42 | PC.NURSE ---
Addendum entered by Arabella Waldrop RN 09/13/23 08:17: Note correction Patient's ostomy is in the left lower quadrant Original Note: Patient has ostomy to right lower quadrant. Emptied at this time. Patient assisted.
[2023-09-13 07:54] LABS: Alanine Aminotransferase 94 U/L (0-41); Albumin Level 2.4 g/dL (3.5-5.2); Alkaline Phosphatase 886 U/L (40-130); Anion Gap 16.5 (5-19); Aspartate Amino Transferase 210 U/L (0-40); Blood Urea Nitrogen 31 mg/dL (8-23); Carbon Dioxide 22 mmol/L (22-29); Chloride 96 mmol/L (98-107); Creatinine Clr Calc Pharmacy 141.4046; Globulin 2.6 g/dL (1.3-4.6); Glomerular Filtration Rate 217.3 mL/min (90-130); Glucose 100 mg/dL (65-115); Osmolality Calculated 277 mOsm/kg (285-295); Potassium 4.5 mmol/L (3.5-5.1); Sodium 130 mmol/L (136-145); Total Bilirubin 2.7 mg/dL (0.15-1.2)
[2023-09-13 08:03] LABS: Glucose Point of Care 82 mg/dL (70-110)
[2023-09-13 09:09] LABS: Glucose Point of Care 74 mg/dL (70-110)
[2023-09-13] MEDS: dexamethasone 10 mg/mL INJ 4 MG IVP (09:23)
[2023-09-13] MEDS: nystatin 100,000 unit/mL UDC 5 mL 500000 UNIT PO ×4 (09:24→20:15)
[2023-09-13] MEDS: lidocaine 2% viscous 15 ML, diphenhydrAMINE oral liq 37.5 MG, aluminum-mag hydrox-simet... MUCOUS MEM (11:56)
[2023-09-13] MEDS: lidocaine 5% Patch 1 PATCH TOPICAL (12:01)
--- NOTE | 2023-09-13 12:24 | P.PN_ITS ---
Subjective 2 Subjective: Spoke with the patient and the family in detail Patient is stating that he would opt for feeding tube if that is needed however he still eating 10 to 20% of his meals I have decided to add IV fluconazole, start PPN, patient is still able to eat some through his mouth there is no strong indication for a feeding tube at this point Dr. Coburn has been notified, he will come talk to the patient and the family Patient states full code Vitals/I&O/Wt Last Vital Signs Temp 94.1 F L 09/13/23 08:00 Pulse 90 09/13/23 11:55 Resp 17 09/13/23 11:55 BP 108/82 09/13/23 11:55 Pulse Ox 90 09/13/23 11:55 O2 Del Method Nasal Cannula 09/13/23 11:55 O2 Flow Rate 3 09/13/23 11:55 09/12/23 09/13/23 09/13/23 22:59 06:59 14:59 Intake Total 620 / 1620 985 / 2605 480 / 480 Output Total 1025 / 1025 100 / 100 Balance 620 / 1620 -40 / 1580 380 / 380 Weight last 48 hrs Weight 52.889 kg Weight 51.936 kg Weight 36.287 kg Physical Exam 2 Narrative: Cachectic, malnourished GCS 15 Multiple petechiae bruises all lower extremities Nonfocal neuroexam S1, S2 Family is at the bedside I do not see any signs of herpes/shingles or any blistering around the tongue or lips Sarcopenia Currently on 3 L Data 09/13/23 06:09 09/13/23 06:09 A&P Assessment and plan (1) Hypoglycemia: (2) Jaundice: (3) Colorectal cancer: (4) Opiate overdose: Qualifiers: Encounter type: initial encounter Injury intent: accidental or unintentional Qualified Code(s): T40.601A - Poisoning by unspecified narcotics, accidental (unintentional), initial encounter (5) Cancer cachexia: (6) Mucositis: Plan Protein calorie malnourishment Added PPN Requested dietary consult Colon cancer with mets to liver, progressing Guarded prognosis Patient is full code Able to eat 10 to 20% of his meals, stating that he is very optimistic and would like to go for feeding tube if that is indicated At this point there is no strong indication Hypoglycemia: Improving Odynophagia: Discontinue steroids, I will put him on IV fluconazole Nystatin to be continued Change diet to regular Patient complaining of pain patient had to be given Narcan in the ER I will keep him on lidocaine patch along morphine Attestations 2 Medical Necessity Statement*: Continue management Diagnoses Hypoglycemia E16.2 Jaundice R17 Colorectal cancer C19 Opiate overdose T40.601A Encounter type: initial encounter Injury intent: accidental or unintentional Cancer cachexia R64 Mucositis K12.30
[2023-09-13 12:50] LABS: Glucose Point of Care 65 mg/dL (70-110)
[2023-09-13] MEDS: AA-Dex 4.25%-5% w/Lytes 1,000 ML with multivitamin inj 10 ML 42 ML IV (13:53)
[2023-09-13] MEDS: fluconazole premix 100 MG in empty flexible container 1 EACH 50 MG IV (14:01)
[2023-09-13 15:29] LABS: Glucose Point of Care 86 mg/dL (70-110)
[2023-09-13 18:09] LABS: Glucose Point of Care 100 mg/dL (70-110)
[2023-09-13 19:28] LABS: Glucose Point of Care 100 mg/dL (70-110)
--- NOTE | 2023-09-13 19:35 | PC.NURSE ---
Patient requested assistance changing ostomy bag. During ostomy change stoma was noted to be beefy red, appeared irritated and was bleeding small amount, also appeared more swollen than usual according to . New appliance was applied and nurse told patient and that she would make the DrVeronica aware of the bleeding from the stoma.
--- NOTE | 2023-09-13 20:06 | PC.NURSE ---
Spoke with regarding patient on q1H accuchecks, blood glucose has been holding at 100 asked if accuchecked can be changed to q2H. said ok to change to q3H. Made aware that patient is having bleeding from ostomy stoma which is not normal for him, on SQ heparin. said hold next dose of heparin.
[2023-09-13 21:12] LABS: Glucose Point of Care 101 mg/dL (70-110)
[2023-09-14] VITALS (10 sets, daily range): BP systolic 93–96; BP diastolic 72–79; PULSE 77–96; RESP 7–22; O2SAT 93–100
[2023-09-14 00:21] LABS: Glucose Point of Care 117 mg/dL (70-110)
[2023-09-14] MEDS: morphine IR 15 mg Tablet PO ×2 (01:35→05:36)
[2023-09-14 03:04] LABS: Glucose Point of Care 130 mg/dL (70-110)
--- NOTE | 2023-09-14 03:16 | PC.NURSE ---
Spoke with regarding patient complaints of pain, is crying in pain and oral and IV pain medications are not due yet. ordered a one time dose of IVP morphine.
[2023-09-14] MEDS: pantoprazole 40 mg SDV IVP ×2 (03:55→16:19)
[2023-09-14] MEDS: morphine 4 mg/mL SDV 1 mL IVP (03:56)
[2023-09-14 05:17] LABS: Basophils % 0.2 %; Hematocrit 30.1 % (37-53); Lymphocytes # 0.3 10^3/uL (0.8-4.8); Lymphocytes % 5.4 %; Mean Corpuscular HGB Conc 33.6 g/dL (30-55); Mean Corpuscular Hemoglobin 30.3 pg (27-33); Mean Corpuscular Volume 90.4 fl (82-101); Mean Platelet Volume 11.5 fL (7.4-10.4); Monocytes # 0.3 10^3/uL (0.2-0.9); Monocytes % 5.1 %; Neutrophils # 5.19 10^3/uL (1.8-7.7); Neutrophils % 88.3 %; Nucleated Red Blood Cells % 0 %; Platelet Count 65 10^3/cmm (157-399); Red Blood Count 3.33 10^6/uL (3.85-5.65); Red Cell Distribution Width 18.1 % (12.1-15.1); White Blood Count 5.88 10^3/uL (3.29-11.43)
[2023-09-14 05:31] LABS: Anion Gap 15.3 (5-19); Blood Urea Nitrogen 39 mg/dL (8-23); Carbon Dioxide 23 mmol/L (22-29); Chloride 97 mmol/L (98-107); Creatinine Clr Calc Pharmacy 113.1237; Glomerular Filtration Rate 167.9 mL/min (90-130); Glucose 126 mg/dL (65-115); Osmolality Calculated 281 mOsm/kg (285-295); Potassium 5.3 mmol/L (3.5-5.1); Sodium 130 mmol/L (136-145)
[2023-09-14 05:53] LABS: Slide Review Slide Review Perform
[2023-09-14 06:15] LABS: Glucose Point of Care 126 mg/dL (70-110)
--- NOTE | 2023-09-14 07:03 | PC.NURSE ---
Messaged regarding patient with high potassium 5.3 with IV fluids ordered with potassium. ordered to d/c fluids with potassium and start D51/2NS at 75ml/hr.
[2023-09-14] MEDS: morphine 4 mg/mL SDV 1 mL 2 MG IVP (07:22)
--- NOTE | 2023-09-14 07:37 | PC.NURSE ---
Patient is very agitated and in pain this morning. Spoke with Dr South regarding patients pain and agitation. Received onetime order for Ativan 0.5mg IVP.
[2023-09-14] MEDS: LORazepam 2 mg/mL INJ 1 mL 0.5 MG IVP (07:40)
--- NOTE | 2023-09-14 08:02 | PC.NURSE ---
Informed Dr Young regarding patient not tolerating peripheral iv for TPN patient refuses to have IV replaced. Spouse is considering comfort care.
[2023-09-14 09:18] LABS: Glucose Point of Care 78 mg/dL (70-110)
[2023-09-14] MEDS: dextrose 5%-sod chloride 0.45% 1,000 ML 75 ML IV (09:41)
--- NOTE | 2023-09-14 10:01 | PC.NURSE ---
TPN on hold for now. No peripheral access. Patient refusing IV access at this time. Dr Young is aware
--- NOTE | 2023-09-14 10:56 | XRR_ITS ---
PROCEDURE INFORMATION: Exam: XR Abdomen Exam date and time: 09/14/2023 11:15 AM Age: 62 years old Clinical indication: Abdominal pain; Generalized; Additional info: Abd pain TECHNIQUE: Imaging protocol: Radiologic exam of the abdomen. Views: Frontal supine view of the abdomen. 1 View. COMPARISON: CT abdomen pelvis w con* [id number] 09/12/2023 10:30 AM FINDINGS: Gastrointestinal tract: No dilated loops of large or small bowel is appreciated. Bowel gas appears to be centered within the midabdomen suggesting the presence of ascites. Unusual air collection seen within the left lower pelvis overlying the superior and inferior pubic rami and inferior left iliac wing. Exact etiology is uncertain. No corresponding gas collection was seen on CT from 09/12/2023. Cannot exclude free air within the pelvis or soft tissue air in this location. Contrast overlying the sacrum likely represents contrast within the urinary bladder. Bones/joints: No acute bony abnormalities are appreciated. XR/XR KUB portable [id number] IMPRESSION: 1. No dilated loops of large or small bowel appreciated. 2. Suspect ascites. 3. Indeterminate air collection overlying the inferior pelvis on the left. Cannot exclude free air within the pelvis or soft tissue emphysema.
[2023-09-14] MEDS: FUROsemide 10 mg/mL SDV 4mL 40 MG IVP (11:21)
[2023-09-14 12:08] LABS: Glucose Point of Care 68 mg/dL (70-110)
--- NOTE | 2023-09-14 12:23 | P.PN_ITS ---
Subjective 2 Subjective: IV line got infiltrated, requiring more pain medications Bruising noted around the colostomy bag Requested KUB which showed air consistent with colostomy bag Discussed hospice care at home with his , who is wanting hospice referral Patient has received Ativan which has improved his anxiety I will request KUB and modified barium swallow to see if we can correct any reversible cause for his odynophagia Vitals/I&O/Wt Last Vital Signs Temp 97.8 F 09/13/23 23:17 Pulse 94 09/14/23 11:28 Resp 16 09/14/23 11:28 BP 93/73 09/14/23 11:28 Pulse Ox 97 09/14/23 11:28 O2 Del Method Nasal Cannula 09/14/23 11:28 O2 Flow Rate 2 09/14/23 10:00 09/13/23 09/14/23 09/14/23 22:59 06:59 14:59 Intake Total 1063.75 / 1543.75 945 / 2488.75 893.2 / 893.2 Output Total 550 / 650 300 / 300 Balance 1063.75 / 1443.75 395 / 1838.75 593.2 / 593.2 Weight last 48 hrs Weight 52.617 kg Weight 52.889 kg Weight 51.936 kg Physical Exam 2 Narrative: Cachectic, malnourished Colostomy bag with mild oozing IV line infiltration in the arm Blood pressure 92/70 minimally On 2 L nasal cannula Afebrile Sarcopenia Protein calorie malnourishment Edema of legs Variable S1-S2 Data 09/14/23 04:37 09/14/23 04:37 A&P Assessment and plan (1) Hypoglycemia: (2) Jaundice: (3) Colorectal cancer: (4) Opiate overdose: Qualifiers: Encounter type: initial encounter Injury intent: accidental or unintentional Qualified Code(s): T40.601A - Poisoning by unspecified narcotics, accidental (unintentional), initial encounter (5) Cancer cachexia: (6) Mucositis: Plan Protein calorie malnourishment IV line got infiltrated Appreciate dietary recommendations Hold off on TPN this morning Continue D5 IV fluid Colon cancer with mets to liver, progressing Guarded prognosis Patient is full code Able to eat 10 to 20% of his meals, stating that he is very optimistic and would like to go for feeding tube if that is indicated Dr. Coburn agrees with not pursuing with feeding tube placement patient is not a good candidate for surgical procedure at this point Will request modified barium swallow Requested KUB this morning which showed air consistent requesting that Hypoglycemia: Improving Continue D5 IV fluids Odynophagia: Discontinue steroids, I will put him on IV fluconazole and acyclovir Added Xylocaine, Magic mouthwash Nystatin to be continued Change diet to regular N.p.o. after midnight for barium swallow study in the morning Patient complaining of pain patient had to be given Narcan in the ER I will keep him on lidocaine patch along morphine Attestations 2 Medical Necessity Statement*: Continue medical management Diagnoses Hypoglycemia E16.2 Jaundice R17 Colorectal cancer C19 Opiate overdose T40.601A Encounter type: initial encounter Injury intent: accidental or unintentional Cancer cachexia R64 Mucositis K12.30
[2023-09-14] MEDS: fluconazole premix 100 MG in empty flexible container 1 EACH 50 MG IV (13:44)
[2023-09-14 15:22] LABS: Glucose Point of Care 55 mg/dL (70-110)
[2023-09-14] MEDS: dextrose 10% 250 ML 1000 ML IV (15:25)
[2023-09-14] MEDS: glucagon 1 mg/mL KIT 1 mL IM (15:43)
--- NOTE | 2023-09-14 15:56 | PC.NURSE ---
Patient has not urinated since this morning before the lasix. Also, blood sugar 55. Giving d10 bolus per protocol. Informed Dr Young and received order to go ahead and give dose of glucagon as ordered. Will begin one hour accuchecks.
[2023-09-14] MEDS: morphine 10 mg/0.5 mL oral liq UD PO (16:19)
[2023-09-14 17:24] LABS: Glucose Point of Care 126 mg/dL (70-110)
--- NOTE | 2023-09-14 17:24 | PC.NURSE ---
Dr Coburn in to see patient. Recommends comfort care only at this time. Informed Dr Young. Fluids stopped presently per Dr Coburn.
[2023-09-15] MEDS: morphine 4 mg/mL SDV 1 mL IVP (02:12)
--- NOTE | 2023-09-15 03:40 | PC.NURSE ---
TOD 311 Physician Notified Called [facility] Called
--- NOTE | 2023-09-15 03:44 | PC.NURSE ---
Pt not candidate for [facility]. [facility]erral [facility] Ref #[id number] Theo
--- NOTE | 2023-09-15 04:27 | PC.NURSE ---
Patient TOD 031. Asystole on monitor, no apical pulse auscultated. Verified with second nurse. present at bedside. Dr. South notified.
--- NOTE | 2023-09-15 05:38 | PC.NURSE ---
Ganesh Time: 0586 Per , pt body is to be released to [facility]. [facility] contacted for update: currently trying contact
[2023-09-15 06:10] VITALS: BP 0/0; PULSE 0; RESP 0; O2SAT 0
--- NOTE | 2023-09-15 11:10 | PM.DDS ---
Discharge Providers DDS Date of Admission: 09/12/23 11:09 Date Summary Completed: 09/15/23 Attending Provider at Admission: Beatriz Galeano MD Time of : 03:12 Attending Provider at Discharge: Yg Young MD Primary Care Provider: Crescencio Sotomayor MD DS Diagnoses Hospital Diagnoses (1) Hypoglycemia: (2) Jaundice: (3) Colorectal cancer: (4) Opiate overdose: Qualifiers: Encounter type: initial encounter Injury intent: accidental or unintentional Qualified Code(s): T40.601A - Poisoning by unspecified narcotics, accidental (unintentional), initial encounter (5) Cancer cachexia: (6) Mucositis: Reason for Visit Reason for Visit UNRESPONSIVE Summary Date and Time of Date of : 09/15/23 Time of : 03:12 Summary Summary: 62-year-old male with history of colorectal cancer with extensive metastatic lesions, was admitted for significant protein calorie malnourishment, hypoglycemia, he was kept on D5 IV fluids, his intake was extremely poor because of odynophagia he was put on acyclovir and fluconazole which did not improve his symptoms. Dr. Coburn had extensive discussion with the family on 2 consecutive days, decision was made to put him on hospice/comfort care in the hospital Additional Data Confirmation of as documented by pronouncing clinician: no pulse, no respirations and pupils fixed and dilated Family: at bedside Additional persons at bedside: nursing staff Attending/PCP notified?: I am attending Was code activated?: No Autopsy requested?: No Advance directives?: Yes Hospice patient?: Yes Discharge Plan Discharge Patient Disposition: At Medical Facility Condition: Stable Prescriptions: No Action (DME) ostomy supplies See Rx Instructions .Route .MEDSUPPLY Qty: 1 10RF Rx Instructions: As directed (DME) Home self urinary straight cath kid See Rx Instructions .Route .MEDSUPPLY Qty: 1 3RF Rx Instructions: As directed lactulose 20 gram/30 mL solution 20 g PO .COMPLEX MDD 180 ml PRN (Reason: constipation) Qty: 1200 1RF Rx Instructions: 20 grams orally 30 ml Q 2 hours until bowel movement.; PRN; lidocaine [AsperFlex (lidocaine)] 4 % adhesive patch,medicated 1 patch topical BID PRN (Reason: pain) Qty: 30 0RF Rx Instructions: may leave on for up to 12 hrs, upper back fluticasone propionate [Flonase Allergy Relief] 50 mcg/actuation spray,suspension 2 spray intranasal BID Qty: 16 0RF Rx Instructions: administer into each nostril cetirizine [Zyrtec] 10 mg tablet 10 mg PO DAILY Qty: 30 0RF meclizine 25 mg tablet 25 mg PO TID PRN (Reason: dizziness) Qty: 60 0RF fluconazole 150 mg tablet 150 mg PO .weekly 56 Days Qty: 8 0RF Rx Instructions: takes Wednesday clotrimazole 10 mg jordan 10 mg mucous membrane TID Qty: 90 0RF naloxone 4 mg/actuation spray,non-aerosol 4 mg intranasal Q2M PRN (Reason: overdose) Rx Instructions: spray 1 dose into ONE nostril; alternate nostrils w each dose until help arrives (DME) colostomy bags See Rx Instructions .Route .MEDSUPPLY Qty: 30 3RF Rx Instructions: As directed Relistor 8 mg/0.4 mL syringe 8 mg SUBCUT DAILY Qty: 2.8 3RF ondansetron 4 mg tablet,disintegrating 4 mg PO Q6H PRN (Reason: Nausea) Qty: 30 3RF famotidine 20 mg tablet 20 mg PO BID Qty: 60 2RF megestrol 400 mg/10 mL (10 mL) suspension 400 mg PO DAILY Qty: 400 0RF dexamethasone 0.5 mg/5 mL solution 1 mg PO QID Qty: 500 0RF Rx Instructions: swish for 2 minutes then spit. Do not eat/drink for 1 hr after use pantoprazole [Protonix] 40 mg tablet,delayed release (DR/EC) 40 mg PO DAILY Qty: 30 0RF metoprolol tartrate 25 mg tablet 25 mg PO BID Qty: 60 1RF morphine concentrate 100 mg/5 mL (20 mg/mL) solution 30 mg PO Q2H PRN (Reason: pain) 14 Days Qty: 240 0RF Movantik 12.5 mg tablet 12.5 mg PO QAM Qty: 10 0RF Rx Instructions: must be taken on empty stomach; no food 1 hr after or 2-3 hrs before dose cholecalciferol (vitamin D3) 1,250 mcg (50,000 unit) capsule 50,000 unit PO .weekly Qty: 6 0RF Rx Instructions: takes wednesday furosemide 40 mg tablet 40 mg PO DAILY Qty: 30 2RF lidocaine HCl [Lidocaine Viscous] 2 % solution 5 ml mucous membrane Q6H PRN (Reason: pain) Qty: 100 0RF Rx Instructions: add Maalox 100ml and simethicone 100ml, swish and swallow lubiprostone 24 mcg capsule 24 mcg PO BID Other Ambulatory Orders: DME: Wheelchair (Order) Location: None Selected Ordered By: Yg Young Referrals: Crescencio Sotomayor MD [Primary Care Provider] - Patient Instructions: Altered Mental Status (ED), Opioid Safety DS Attestations Time Spent in /Discharge Care*: less than 30 min Quality - AMI: AMI present?: No Quality - Stroke: CVA present?: No Quality - VTE: VTE present?: No Coding Level of Care Code Acute Code for Chg Fwd Diagnoses Hypoglycemia E16.2 Jaundice R17 Colorectal cancer C19 Opiate overdose T40.601A Encounter type: initial encounter Injury intent: accidental or unintentional Cancer cachexia R64 Mucositis K12.30
== END 2023-09-15 05:45 | disposition expired | DRG 641 ==
LOC: ER 14:40 → CSU 15:18
PROVIDERS: Admitting Provider Student in an Organized Health Care Education/Training Program; Emergency Provider Emergency Medicine; PCP Family Medicine; Visit Provider Internal Medicine
DX: E16.2 Hypoglycemia, unspecified (principal); C18.7 Malignant neoplasm of sigmoid colon; C78.7 Secondary malignant neoplasm of liver and intrahepatic bile duct; R64 Cachexia; Z68.1 Body mass index [BMI] 19.9 or less, adult; E46 Unspecified protein-calorie malnutrition; K21.9 Gastro-esophageal reflux disease without esophagitis; Z93.3 Colostomy status; Z95.828 Presence of other vascular implants and grafts; K12.30 Oral mucositis (ulcerative), unspecified; R13.10 Dysphagia, unspecified; M48.062 Spinal stenosis, lumbar region with neurogenic claudication; Z51.5 Encounter for palliative care
CPT/HCPCS: 36415; 36416; 36591; 36600; 49083; 71045; 74018; 74177; 80048; 80051; 80053; 82330; 82805; 82962; 85025; 92610; 96372; 96374; 96376; 99285; C9113; J1100; J1450; J1610; J1644; J1940; J2060; J2270; J2310; J7120; J7799; Q0162; Q9967